=== PATIENT | female | born 1960 | race Caucasian/White ===

== ENCOUNTER 2016-06-08 08:11 | Inpatient (IN) | payer BC ==
[2016-06-08] MEDS ORDERED: Albuterol/Ipratropium NEB.SOL* Albuterol 2.5 MG/Ipratropium 0.5 MG 3 ML INH ONE (08:32)
[2016-06-08 09:00] LABS: Hematocrit 54 % (35-47); Hemoglobin 16.7 g/dl (12.0-16.0); Mean Corpuscular HGB Conc 31 g/dl (31-36); Mean Corpuscular Hemoglobin 29 pg (27-31); Mean Corpuscular Volume 92 fL (80-97); Mean Platelet Volume 8 um3 (7.4-10.4); Red Blood Count 5.81 10^6/ul (4.0-5.4); Red Cell Distribution Width 17 % (10.5-15); White Blood Count 6.8 10^3/ul (3.5-10.8)
[2016-06-08 09:04] LABS: Comments Flag Yes
[2016-06-08 09:18] LABS: ALT 16 U/L (7-52); Albumin 3.4 g/dL (3.2-5.2); Alkaline Phosphatase 50 U/L (34-104); BUN/Creatinine Ratio 19.4 (8-20); Blood Urea Nitrogen 20 mg/dL (6-24); CO2 Carbon Dioxide 34 mmol/L (22-32); Calcium 9.4 mg/dL (8.6-10.3); Chloride 98 mmol/L (101-111); EGFR African American 71.5 (>60); EGFR Non-African American 55.6 (>60); Globulin 2.8 g/dL (2-4); Glucose 120 mg/dL (70-100); Sodium 139 mmol/L (133-145); Total Protein 6.2 g/dL (6.4-8.9)
[2016-06-08 09:30] LABS: Troponin I 0.11 ng/mL (<0.04)
[2016-06-08] MEDS ORDERED: Furosemide IV* 10 MG/ML 10 ML VIAL (100 MG) IV ONE (09:39)
[2016-06-08] MEDS ORDERED: Aspirin Low Dose CHEW TAB* 81 MG PO ONE (09:40)
--- NOTE | 2016-06-08 10:09 | RAD ---
INDICATION: Short of breath. Wheezing COMPARISON: October 26, 2013 TECHNIQUE: PA and lateral dual-energy views were obtained. FINDINGS: Bones/Soft Tissues: There are no acute bony findings. Cardiomediastinal: The cardiac silhouette is enlarged with an interval increase in size. There may be mild interstitial congestion. A pericardial effusion is not excluded. Lungs: No focal consolidative changes. Pleura: Tiny bilateral pleural effusions. Other: None IMPRESSION: INTERVAL INCREASE IN SIZE OF THE CARDIAC SILHOUETTE. SUSPECT MILD INTERSTITIAL CONGESTION. CONSIDER ECHOCARDIOGRAPHY TO EVALUATE FOR A PERICARDIAL EFFUSION IF THIS IS A DIFFERENTIAL CONSIDERATION .
[2016-06-08] MEDS ORDERED: Heparin DRIP 25,000 UNITS(*) 25,000 UNITS/500 ML BAG IVPB SCH ×2 (12:30→14:00)
--- NOTE | 2016-06-08 12:39 | ECHO ---
Patient: MARY GLOVER [facility] Rec#: [id number] : 1960 Date: 06/08/2016 Age: 55y Height: 167 cm / 65.7 in Weight: 102 kg / 224.8 lbs Sex: F BSA: 2.1 Room#: [id number] Admit Date#: 06/08/2016 Type: Outpatient Referring: Sukhdev Alston MD Reading: Eren Ring DO Reading: Eren Ring DO Heavy Equipment Mechanic: Mau Francis RDCS Transthoracic Echocardiogram Indication: CHF,SOB BP: 115/53 HR: 60 Rhythm: NSR Findings History: CHF,SOB Technical Comments: The study quality is fair. Completed 1210 The study is technically limited due to patient body habitus. Left Ventricle: The left ventricular chamber size is normal. Mild concentric left ventricular hypertrophy is observed. Global left ventricular wall motion and contractility are within normal limits. There is normal left ventricular systolic function. The estimated ejection fraction is 50-55%. There is septal flattening of the interventricular septum consistent with right ventricular volume or pressure overload. The assessment of diastolic function is non-diagnostic. Abnormal left ventricular diastolic filling is observed, consistent with impaired relaxation. Left Atrium: The left atrial chamber size is normal. Right Ventricle: The right ventricle is moderate to severely dilated. The right ventricular global systolic function is moderately reduced. Right Atrium: The right atrium is moderately dilated. Aortic Valve: The aortic valve is trileaflet. There is no evidence of aortic regurgitation. There is no evidence of aortic stenosis. Mitral Valve: The mitral valve leaflets appear normal. There is no evidence of mitral regurgitation. There is no evidence of mitral stenosis. Tricuspid Valve: There is mild tricuspid regurgitation. There is evidence of moderate pulmonary hypertension. Pulmonic Valve: The pulmonic valve appears normal. There is a trace pulmonic regurgitation. There is no pulmonic stenosis. Pericardium: There is a small pericardial effusion. Aorta: There is no dilatation of the ascending aorta. There is no dilatation of the aortic arch. There is no dilation of the aortic root. Pulmonary Artery: The main pulmonary artery is not well visualized. Venous: The inferior vena cava is not visualized. Conclusions The left ventricular chamber size is normal. Mild concentric left ventricular hypertrophy is observed. The estimated ejection fraction is 50-55%. Left atrium is normal sized. There is septal flattening of the interventricular septum throughout diastole and systole consistent with RV pressure overload. The right ventricle is moderate to severely dilated. The right ventricular global systolic function is moderately reduced. The right atrium is moderately dilated. No obvious interatrial shunt with color flow doppler There is evidence of moderate pulmonary hypertension. There is a small posterior located pericardial effusion. The main pulmonary artery is not well visualized. The inferior vena cava is not visualized. No prior studies available for comparison at time of interpretation. Results discussed with Dr. Sukhdev Alston at time of interpretation Measurements Name Value Normal Range RVIDd (AP) 2D 2.9 cm (0.9 - 2.6) RVDdMajor (2D) 4.6 cm (2.2 - 4.4) RAd ISD 4CH 6.1 cm (3.4 - 4.9) RA (A4C)W 6.4 cm (2.9 - 4.6) IVSd (2D) 1.4 cm (0.6 - 1) LVPWd (2D) 0.7 cm (0.6 - 1) LVIDd (2D) 5.7 cm (3.6 - 5.4) LVIDs (2D) 4 cm - LV FS (2D) 30 % (25 - 45) Aortic Annulus 2 cm (1.4 - 2.6) Ao root diameter (2D) 2.8 cm (2.1 - 3.5) Ascending Ao 2.5 cm (2.1 - 3.4) Aortic arch 2.5 cm (1.8 - 3.4) LA dimension (AP) 2D 3.7 cm (2.3 - 3.8) LAd ISD 4CH 5.1 cm (2.9 - 5.3) Name Value Normal Range LA ESV SP 4CH (A/L) 72 ml - LA ESV SP 4CH (MOD) 61 ml - Name Value Normal Range MV E-wave Vmax 0.45 m/sec - MV deceleration time 122 msec - MV A-wave Vmax 0.6 m/sec - MV E:A ratio 0.69 ratio - LV septal e' Vmax 0.07 m/sec - LV lateral e' Vmax 0.14 m/sec - LV E:e' septal ratio 6.4 ratio - LV E:e' lateral ratio 3.2 ratio - Name Value Normal Range LVOT diameter 2.2 cm - LVOT Vmax 0.9 m/sec - Name Value Normal Range TR Vmax 3.5 m/sec - TR peak gradient 50 mmHg - RVSP 50 mmHg - Name Value Normal Range PV Vmax 0.75 m/sec -
--- NOTE | 2016-06-08 12:53 | ED ---
Jordon Wynne Matthew, scribed for Geoff Ivy MD on 06/08/16 at 0830 . Shortness of Breath - HPI Summary HPI Summary: A 55 y/o female presents to the ED with SOB since a couple of weeks ago and worse today. Associated symptoms include productive cough - yellow phlegm, chills, pedal edema - since a week ago, distended abdomen, and wheezing. The patient denies body aches, fever, and recent travel. She states that she has been ill for the past week. The SOB is worse with exertion. She is a current smoker and has taken two albuterol treatments at home with out relief. She has a Hx of COPD. NO Hx of CAD, Diabetes, HTN, Asthma, or CHF. Upon arrival she was sating at 77% on RA. - History of Current Complaint Chief Complaint: EDRespiratoryDistress Time Seen by Provider: 06/08/16 08:21 Hx Obtained From: Patient Onset/Duration: Gradual Onset, Lasting Weeks, Still Present Timing: Constant Current Severity: Moderate Dyspnea At: Exertion Alleviating Factors: Nothing Associated Signs & Symptoms: Cough (Productive), Wheezing, Chills, Edema - pedal - Allergy/Home Medications Allergies/Adverse Reactions: Allergies Allergy/AdvReac Type Severity Reaction Status Date / Time Theophylline Allergy Swelling Verified 10/10/15 18:45 Of Face,Lips,& Throat Thimerosal Allergy Swelling Verified 10/10/15 18:45 Of Face,Lips,& Throat PMH/Surg Hx/FS Hx/Imm Hx Endocrine/Hematology History: Denies: Hx Diabetes, Hx Thyroid Disease Cardiovascular History: Denies: Hx Hypertension Respiratory History: Reports: Hx Pneumonia, Hx Seasonal Allergies Denies: Hx Asthma, Hx Chronic Obstructive Pulmonary Disease (COPD) GI History: Denies: Hx Ulcer Sensory History: Reports: Hx Cataracts - SX BLT cataracts, Hx Contacts or Glasses Opthamlomology History: Reports: Hx Cataracts - SX BLT cataracts, Hx Contacts or Glasses - Surgical History Surgery Procedure, Year, and Place: bilat cataract - lens implant Infectious Disease History: No Infectious Disease History: Denies: Hx Clostridium Difficile, Hx Hepatitis, Hx Human Immunodeficiency Virus (HIV), Hx of Known/Suspected MRSA, Hx Shingles, Hx Tuberculosis, Traveled Outside the [place] in Last 30 Days - Family History Family History: FHx of CHF - grandmother maternal - Social History Alcohol Use: Occasionally Alcohol Amount: 12 Substance Use Type: Reports: None Smoking Status (MU): Current Every Day Smoker Type: Cigarettes Amount Used/How Often: 4 per day Length of Time of Smoking/Using Tobacco: 30 years Have You Smoked in the Last Year: Yes Review of Systems Positive: Chills. Negative: Fever Eyes: Negative ENT: Negative Cardiovascular: Negative Respiratory: Other - Wheezingn Positive: Shortness Of Breath, Cough - productive w/ yellow phlegm Gastrointestinal: Negative Genitourinary: Negative Positive: Edema - pedal . Negative: Myalgia Skin: Negative Neurological: Negative Psychological: Normal All Other Systems Reviewed And Are Negative: Yes Physical Exam - Summary Physical Exam Summary: The patient is in mild respiratory distress. The skin had decreased turgor. HEENT: The head is normocephalic and atraumatic. The pupils are equal and reactive. The conjunctivae are clear and without drainage. Nares are patent and without drainage. Mouth reveals moist mucous membranes and the throat is without erythema and exudate. The external ears are intact. The ear canals are patent and without drainage. The tympanic membranes are intact. Neck is supple with full range of motion and non-tender. There are no carotid bruits. There is no neck vein distension. Respiratory: Chest is non-tender. Diffuse wheezing and rhonchi throughout. Cardiovascular: Heart is regular rhythm and tachycardic. There is no murmur or rub auscultated. Pulses are symmetrical and equal. Abdomen: The abdomen is soft, obese, and non-tender. There are normal bowel sounds heard in all four quadrants and there is no organomegaly palpated. No CVA tenderness elicited. The patient has questionable fluid shit. Musculoskeletal: There is no back pain noted. Extremities are non-tender with full range of motion. There is 3 second capillary refill. There is no calf tenderness elicited.The patient has pitting edema of the LE bilaterally that extends into the abdomen. Neurological: Patient is alert and oriented to person, place and time. The patient has symmetrical motor strength in all four extremities. Cranial nerves are grossly intact. Deep tendon reflexes are symmetrical and equal in all four extremities. Psychiatric: The patient has an appropriate affect and does not exhibit any anxiety or depression. Triage Information Reviewed: Yes Vital Signs On Initial Exam: Initial Vitals Temp Pulse Resp BP Pulse Ox 98.1 F 127 26 135/89 75 06/08/16 08:14 06/08/16 08:14 06/08/16 08:14 06/08/16 08:14 06/08/16 08:14 Vital Signs Reviewed: Yes Diagnostics - Vital Signs Vital Signs Temp Pulse Resp BP Pulse Ox 06/08/16 08:14 98.1 F 127 26 135/89 75 - Laboratory Lab Results: Lab Results 06/08/16 06/08/16 06/08/16 Range/Units 08:45 08:45 08:45 WBC 6.8 (3.5-10.8) 10^3/ul RBC 5.81 H (4.0-5.4) 10^6/ul Hgb 16.7 H (12.0-16.0) g/dl Hct 54 H (35-47) % MCV 92 (80-97) fL MCH 29 (27-31) pg MCHC 31 (31-36) g/dl RDW 17 H (10.5-15) % Plt Count 224 (150-450) 10^3/ul MPV 8 (7.4-10.4) um3 Neut % (Auto) 81.5 (38-83) % Lymph % (Auto) 6.1 L (25-47) % [place] % (Auto) 10.8 H (1-9) % Eos % (Auto) 0.8 (0-6) % Baso % (Auto) 0.8 (0-2) % Absolute Neuts (auto) 5.5 (1.5-7.7) 10^3/ul Absolute Lymphs (auto) 0.4 L (1.0-4.8) 10^3/ul Absolute Monos (auto) 0.7 (0-0.8) 10^3/ul Absolute Eos (auto) 0.1 (0-0.6) 10^3/ul Absolute Basos (auto) 0.1 (0-0.2) 10^3/ul Absolute Nucleated RBC 0.02 10^3/ul Nucleated RBC % 0.3 INR (Anticoag Therapy) 1.12 H (0.89-1.11) APTT Pending Sodium 139 (133-145) mmol/L Potassium TNP Chloride 98 L (101-111) mmol/L Carbon Dioxide 34 H (22-32) mmol/L Anion Gap TNP BUN 20 (6-24) mg/dL Creatinine 1.03 H (0.51-0.95) mg/dL Est GFR ( Amer) 71.5 (>60) Est GFR (Non-Af Amer) 55.6 (>60) BUN/Creatinine Ratio 19.4 (8-20) Glucose 120 H (70-100) mg/dL Hemoglobin A1c (Less than 6.0) % Lactic Acid (0.5-2.0) mmol/L Calcium 9.4 (8.6-10.3) mg/dL Total Bilirubin 1.40 H (0.2-1.0) mg/dL AST TNP ALT 16 (7-52) U/L Alkaline Phosphatase 50 (34-104) U/L Troponin I 0.11 H* (<0.04) ng/mL B-Natriuretic Peptide ( - 100) pg/mL Total Protein 6.2 L (6.4-8.9) g/dL Albumin 3.4 (3.2-5.2) g/dL Globulin 2.8 (2-4) g/dL Albumin/Globulin Ratio 1.2 (1-3) TSH Pending 06/08/16 06/08/16 06/08/16 Range/Units 08:45 08:45 08:45 WBC (3.5-10.8) 10^3/ul RBC (4.0-5.4) 10^6/ul Hgb (12.0-16.0) g/dl Hct (35-47) % MCV (80-97) fL MCH (27-31) pg MCHC (31-36) g/dl RDW (10.5-15) % Plt Count (150-450) 10^3/ul MPV (7.4-10.4) um3 Neut % (Auto) (38-83) % Lymph % (Auto) (25-47) % [place] % (Auto) (1-9) % Eos % (Auto) (0-6) % Baso % (Auto) (0-2) % Absolute Neuts (auto) (1.5-7.7) 10^3/ul Absolute Lymphs (auto) (1.0-4.8) 10^3/ul Absolute Monos (auto) (0-0.8) 10^3/ul Absolute Eos (auto) (0-0.6) 10^3/ul Absolute Basos (auto) (0-0.2) 10^3/ul Absolute Nucleated RBC 10^3/ul Nucleated RBC % INR (Anticoag Therapy) (0.89-1.11) APTT Sodium (133-145) mmol/L Potassium Chloride (101-111) mmol/L Carbon Dioxide (22-32) mmol/L Anion Gap BUN (6-24) mg/dL Creatinine (0.51-0.95) mg/dL Est GFR ( Amer) (>60) Est GFR (Non-Af Amer) (>60) BUN/Creatinine Ratio (8-20) Glucose (70-100) mg/dL Hemoglobin A1c 7.3 H (Less than 6.0) % Lactic Acid 2.0 (0.5-2.0) mmol/L Calcium (8.6-10.3) mg/dL Total Bilirubin (0.2-1.0) mg/dL AST ALT (7-52) U/L Alkaline Phosphatase (34-104) U/L Troponin I (<0.04) ng/mL B-Natriuretic Peptide 885 H ( - 100) pg/mL Total Protein (6.4-8.9) g/dL Albumin (3.2-5.2) g/dL Globulin (2-4) g/dL Albumin/Globulin Ratio (1-3) TSH Result Diagrams: 06/08/16 08:45 06/08/16 12:19 Lab Statement: Any lab studies that have been ordered have been reviewed, and results considered in the medical decision making process. - Radiology CXR Xray Interpretation: Positive (See Comments) - IMPRESSION: INTERVAL INCREASE IN SIZE OF THE CARDIAC SILHOUETTE. SUSPECT MILD INTERSTITIAL CONGESTION. CONSIDER ECHOCARDIOGRAPHY TO EVALUATE FOR A PERICARDIAL EFFUSION IF THIS IS A DIFFERENTIAL CONSIDERATION . Radiology Interpretation Completed By: Radiologist - EKG 08:18 Cardiac Rate: Tachycardia - 108 EKG Rhythm: Sinus Tachycardia EKG Interpretation: Normal [place]; Poor R Wave Progression; Old lateral wall OH; No STEMI Course/Dx - Course Assessment/Plan: The patient had NO relief with DuoNeb treatments. Reviewed of CXR shows cardiomegaly, which is new since 2013. BNP was elevated and troponin was elevated to 0.11. Dr. Alston was consulted and will evaluate the patient for admission. - Diagnoses Differential Diagnosis/HQI/PQRI: Positive: CHF, OH, Pulmonary Edema, Other - cardiomyopathy, pericrdial effusion, viral myocarditis Provider Diagnoses: Acute dyspnea, New onset of congestive heart failure - Physician Notifications Discussed Care of Patient With: Dr. Alston (Hospitalist) at 09:54 -- Notified of patient's history and will admit the patient into his services. Discharge - Discharge Plan Condition: Stable Disposition: ADMITTED TO Health system documentation as recorded by the Jordon doyle Matthew accurately reflects the service I personally performed and the decisions made by , Geoff Ivy MD.
[2016-06-08] MEDS ORDERED: Heparin VIAL(*) 5000 UNITS/ML VIAL (FIVE THOUSAND) IV SCH ×2 (13:00→14:00)
[2016-06-08 13:02] LABS: Troponin I 0.11 ng/mL (<0.04)
[2016-06-08 13:30] LABS: TSH (Thyroid Stimulating Horm) 3.23 mcIU/mL (0.34-5.60)
[2016-06-08] MEDS ORDERED: Iodixanol* (CONTRAST) 320 MG/ML 100 ML SDV IV ONE (13:49)
[2016-06-08] MEDS ORDERED: Heparin VIAL(*) 5000 UNITS/ML VIAL (FIVE THOUSAND) SUBCUT SCH (14:00)
--- NOTE | 2016-06-08 14:18 | HP ---
ADMISSION HISTORY AND PHYSICAL: DATE OF ADMISSION: 06/08/16 PRIMARY CARE PROVIDER: Dr. Borrero, sees him frequently. HEALTHCARE PROXY: Her sister, Bharati Bullock. CODE STATUS: Full. SOURCE OF INFORMATION: History obtained from interview with the patient and review of past medical records. RELIABILITY: Fair to poor. CHIEF COMPLAINT: Lower extremity swelling and cough. HISTORY OF PRESENT ILLNESS: This is a 55-year-old female with past medical history of pneumonia in 2008 and again sepsis with suspected pneumonia in 2013, fairly low contact with the healthcare system, last followed Dr. Jona Borrero after her discharge in 2013, who notes a decline starting in February, fell and bruised her left leg, had been improving. Her exercise tolerance up until the beginning of the year and around April was essentially unlimited but noted over the last several weeks, it felt like her "insides have fallen" with notable increased lower extremity edema bilaterally and abdominal bloating. She thinks approximately 2 to 3 weeks ago, she had flu-like symptoms, decreased energy with fevers and myalgias, that had resolved. However, possibly preceding right around the same time, started increasing lower extremity edema and dyspnea on exertion. Her exercise tolerance has now decreased to approximately 50 feet. She denies any chest pain or discomfort at any time, including with exertion. She denies PND or orthopnea. She has had no syncope or near loss of consciousness and no palpitations. She denies any symptoms, does note increased episodes of watery stools with explosive gas over the last month. In the emergency room, she was given 80 mg of Lasix, albuterol nebulizer , and aspirin. Hospitalist service was consulted for admission. PAST MEDICAL HISTORY: Largely unknown. Past medical history includes pneumonia in 2008 and sepsis in 2013 suspected secondary to pneumonia, bilateral iritis, suspected COPD versus bronchospasm in hospital stay in 2013. Tobacco abuse, obesity. MEDICATIONS: 1. Albuterol nebulizer as needed at home. 2. Paroxetine 20 mg daily. ALLERGIES: THEOPHYLLINE and THIMEROSAL. FAMILY HISTORY: Mother with colon cancer. No CAD or lung disorders in mother or father. SOCIAL HISTORY: Drinks 1 to 2 beers per day. 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 REVIEW OF SYSTEMS: As per HPI, otherwise all other systems negative. PHYSICAL EXAMINATION GENERAL: An obese woman sitting up in bed, interactive, pleasant, talks in full sentences, in no apparent distress. VITAL SIGNS: In the emergency room, blood pressure 135/89, heart rate is 105 to 127 beats per minute. O2 saturation nadired at 75, increased to 98% on 2 L oxygen. T-max is 98.1. HEENT: Oropharynx is clear. Moist mucous membranes. Sclerae are anicteric. NECK: She has elevated JVD at the angle of her jaw. No palpable cervical or supraclavicular lymphadenopathy. LUNGS: Her lungs had diffuse rhonchi throughout in all lung siegel. HEART: She is tachycardic. Heart rate with a regular rhythm. No murmurs. ABDOMEN: Soft, nondistended, with overlying edema. Positive bowel sounds. EXTREMITIES: Warm and well perfused except for the fingertips, which are cool. She has 3+ lower extremity pitting edema to above the knees. SKIN: Her skin has general erythema in her lower extremities to her knees as well as her lower abdomen without evidence of cellulitic change. She has some facial edema in a butterfly distribution. NEUROLOGIC: She is alert and oriented x3. She had no apparent anxiety, agitation, or depression. LABORATORY DATA: Labs reviewed. Troponin I is 0.11, BNP 885, BUN 20, creatinine 1.03, bicarb 34, INR is 1.12. White blood cell count is 6.4, hemoglobin 16.7, and platelets 224. Data reviewed. Chest x-ray, formal impression: Interval increase in size of the cardiac silhouette compared to 2004, suspect mild interstitial congestion. Consider echocardiography, evaluate for pericardial effusion if it is in the differential. EKG: Sinus tachycardia, ventricular rate of 108, right axis deviation, low voltage throughout, Q waves in V2 and V3, QRS greater than 0.08, less than 0.12. ASSESSMENT AND PLAN: This is a 55-year-old female, not well followed in the medical community, presenting with increasing shortness of breath, cough, and lower extremity edema. Enlarged cardiac silhouette on chest x-ray associated with low-voltage EKG and new evidence of heart failure symptoms. Check echocardiogram now to rule out pericardial effusion and/or decreased cardiac function. In addition to pericardial effusion, differential includes silent myocardial infarction, alcoholic dilated cardiomyopathy, as well as mild pericarditis in the setting of recent upper respiratory infection symptoms around the time she developed lower extremity edema. Elevated troponin. Trend, next one in 3 hours. We will not start heparin at this time unless increasing and new evidence of effusion on echocardiogram. Continue aspirin, low dose tomorrow, received high dose in the emergency room. The patient is chest pain free. Check a hemoglobin A1c, add on total cholesterol panel fasting in the morning. Shortness of breath and cough. Etiology likely related to one of the above, including heart failure exacerbation in the setting of silent myocardial infarction or decreased EF, pericardial effusion or acute coronary syndrome. Received Lasix 80 mg now. We will hold additional Lasix at this time. Repeat BMP in the morning. Continue albuterol nebs, add Dulera for suspicion of underlying chronic obstructive pulmonary disease. Strict I's and O's and daily weights, heart healthy diet. Depression. Continue paroxetine. Code status is full. [id number]/[facility] #: [id number] MTDD
--- NOTE | 2016-06-08 15:16 | RAD ---
HISTORY: New right ventricular failure COMPARISONS: January 04, 2009 TECHNIQUE: Multiple contiguous axial CT scans of the chest were obtained after the administration of nonionic intravenous contrast, timed to the pulmonary arterial phase of contrast enhancement.. Coronal and sagittal multiplanar reformations are also submitted for review. FINDINGS: NECK AND THYROID: The lower neck and thyroid are unremarkable. CHEST WALL: There is no lower cervical, axillary, or supraclavicular lymphadenopathy by size criteria. HEART AND PERICARDIUM: There is a moderate pericardial effusion AORTA AND PULMONARY VASCULATURE: The pulmonary artery is enlarged compared to the aorta. There is no pulmonary arterial filling defect to suggest pulmonary embolism MEDIASTINUM: There is no mediastinal lymphadenopathy by size criteria. DARRICK: There is no hilar lymphadenopathy by size criteria. AIRWAY AND ESOPHAGUS: The airway is unremarkable, without endobronchial filling defect. The esophagus is grossly normal. LUNG PARENCHYMA: The lungs are clear. PLEURA: No pleural abnormalities are noted. UPPER ABDOMEN: There is a moderate amount of ascites BONES AND SOFT TISSUES: Degenerative changes noted of the spine. There is extensive subcutaneous edema OTHER: None. IMPRESSION: 1. MODERATE PERICARDIAL EFFUSION. 2. ENLARGEMENT OF THE PULMONARY ARTERY SUGGESTIVE OF PULMONARY ARTERIAL HYPERTENSION. 3. NO PULMONARY ARTERIAL FILLING DEFECT TO SUGGEST PULMONARY EMBOLISM. 4. ASCITES.
--- NOTE | 2016-06-08 18:41 | PN ---
Progress Note - Progress Note Note: Admission addendum: TTE indicated right sided heart failure with minimal pericardial effusion. Patient empirically treated for suspect PE prior to acquisition of CTA. CTA did not indicate PE so heparin was discontinued. Discuss briefly with cardiology who was not formally consulted. Repeat TTE with bubble may be of some use. Possible underlying COPD and/or COPD contributing.
[2016-06-08] MEDS: Mometasone/Formoter 100/5 MDI INH SCH (20:04)
[2016-06-08] MEDS: Heparin VIAL(*) 5000 UNITS/ML VIAL (FIVE THOUSAND) SUBCUT SCH (22:06)
[2016-06-09] MEDS: Heparin VIAL(*) 5000 UNITS/ML VIAL (FIVE THOUSAND) SUBCUT SCH ×3 (05:29→21:11)
[2016-06-09 05:34] LABS: Hematocrit 49 % (35-47); Hemoglobin 15.1 g/dl (12.0-16.0); Mean Corpuscular HGB Conc 31 g/dl (31-36); Mean Corpuscular Hemoglobin 29 pg (27-31); Mean Corpuscular Volume 92 fL (80-97); Mean Platelet Volume 8 um3 (7.4-10.4); Red Blood Count 5.26 10^6/ul (4.0-5.4); Red Cell Distribution Width 15 % (10.5-15); White Blood Count 6.1 10^3/ul (3.5-10.8)
[2016-06-09 05:50] LABS: Comments Flag Yes
[2016-06-09 05:54] LABS: BUN/Creatinine Ratio 20.5 (8-20); Calcium 8.6 mg/dL (8.6-10.3); EGFR African American 85.8 (>60); EGFR Non-African American 66.7 (>60); Potassium 4.2 mmol/L (3.5-5.0)
[2016-06-09] MEDS: Aspirin Low Dose CHEW TAB* 81 MG PO SCH (08:33)
[2016-06-09] MEDS: PARoxetine HCL TAB* 20 MG PO SCH (08:33)
[2016-06-09] MEDS ORDERED: Pneumococcal Vac Polyvalent* 0.5 ML VIAL IM ONE (09:00)
[2016-06-09] MEDS: Mometasone/Formoter 100/5 MDI INH SCH ×2 (09:19→21:13)
[2016-06-09] MEDS ORDERED: Dextrose 50% Syringe 50 ML* 25 GM/50 ML SYRINGE IV PUSH PRN (09:45)
--- NOTE | 2016-06-09 10:06 | PN ---
Subjective Date of Service: 06/09/16 Interval History: +cough, non productive Feels LE swelling and SOB have improved. Denies any chest discomfort. Walking to bathroom. Inc urine output with lasix. tele reviewed - no events Off oxygen after walking to bathroom on my arrival - O2sat 74%, asymptomatic Objective Active Medications: Acetaminophen (Tylenol Tab*) 650 mg PO Q4H PRN PRN Reason: FEVER/PAIN Albuterol/Ipratropium (Duoneb Neb.Ingrid*) 1 neb INH Q6H PRN PRN Reason: SOB/WHEEZING Aspirin (Aspirin Low Dose Tab*) 81 mg PO DAILY [facility] Last Admin: 06/09/16 08:33 Dose: 81 mg Dextrose (D50w Syringe 50 Ml*) 12.5 gm IV PUSH .FOR FS < 60 - SS PRN PRN Reason: FS < 60 Furosemide (Lasix Iv*) 40 mg IV DAILY [facility] Heparin Sodium (Porcine) (Heparin Vial(*)) 5,000 units SUBCUT Q8HR [facility] Last Admin: 06/09/16 05:29 Dose: 5,000 units Insulin Human Lispro (Humalog*) 0 units SUBCUT ACHS [facility] PRN Reason: Protocol Metformin HCl (Glucophage*) 500 mg PO 0800,1700 [facility] Mometasone Furoate/Formoterol Fumar (Dulera 100/5 Mdi*) 2 puff INH BID [facility] Last Admin: 06/09/16 09:19 Dose: 2 puff Paroxetine HCl (Paxil Tab*) 20 mg PO DAILY [facility] Last Admin: 06/09/16 08:33 Dose: 20 mg Vital Signs 06/08/16 06/08/16 06/08/16 12:59 16:19 16:47 Temperature 98.2 F 98.4 F Pulse Rate 89 104 Respiratory 26 18 18 Rate Blood Pressure 113/78 105/75 (mmHg) O2 Sat by Pulse 97 97 Oximetry 06/08/16 06/08/16 06/08/16 19:35 20:08 20:34 Temperature 98.4 F Pulse Rate 86 87 Respiratory 18 18 Rate Blood Pressure 113/66 (mmHg) O2 Sat by Pulse 96 96 Oximetry 06/08/16 06/09/16 06/09/16 23:25 01:15 03:24 Temperature 98.5 F 98.6 F Pulse Rate 86 86 84 Respiratory 20 20 20 Rate Blood Pressure 114/88 125/85 (mmHg) O2 Sat by Pulse 91 92 93 Oximetry 06/09/16 09:22 Temperature Pulse Rate 86 Respiratory 14 Rate Blood Pressure (mmHg) O2 Sat by Pulse 94 Oximetry Oxygen Devices in Use Now: Nasal Cannula - 92% with 2L and 74% on RA Eyes: No Scleral Icterus, PERRLA Ears/Nose/Mouth/Throat: NL Teeth, Lips, Gums, Clear Oropharnyx, Mucous Membranes Moist Neck: NL Appearance and Movements; NL JVP, Trachea Midline Respiratory: Symmetrical Chest Expansion and Respiratory Effort, - - decreasd throughout, +rales to apex Cardiovascular: RRR Abdominal: NL Sounds; No Tenderness; No Distention, No Hepatosplenomegaly, - - + anasarca Extremities: - - 2_ edema to above knees Neurological: Alert and Oriented x 3 Result Diagrams: 06/09/16 04:49 06/09/16 04:49 Additional Lab and Data: Lab Results 06/08/16 06/08/16 06/08/16 Range/Units 08:45 08:45 08:45 WBC 6.8 (3.5-10.8) 10^3/ul RBC 5.81 H (4.0-5.4) 10^6/ul Hgb 16.7 H (12.0-16.0) g/dl Hct 54 H (35-47) % MCV 92 (80-97) fL MCH 29 (27-31) pg MCHC 31 (31-36) g/dl RDW 17 H (10.5-15) % Plt Count 224 (150-450) 10^3/ul MPV 8 (7.4-10.4) um3 Neut % (Auto) 81.5 (38-83) % Lymph % (Auto) 6.1 L (25-47) % [place] % (Auto) 10.8 H (1-9) % Eos % (Auto) 0.8 (0-6) % Baso % (Auto) 0.8 (0-2) % Absolute Neuts (auto) 5.5 (1.5-7.7) 10^3/ul Absolute Lymphs (auto) 0.4 L (1.0-4.8) 10^3/ul Absolute Monos (auto) 0.7 (0-0.8) 10^3/ul Absolute Eos (auto) 0.1 (0-0.6) 10^3/ul Absolute Basos (auto) 0.1 (0-0.2) 10^3/ul Absolute Nucleated RBC 0.02 10^3/ul Nucleated RBC % 0.3 INR (Anticoag Therapy) 1.12 H (0.89-1.11) APTT Pending Sodium 139 (133-145) mmol/L Potassium TNP Chloride 98 L (101-111) mmol/L Carbon Dioxide 34 H (22-32) mmol/L Anion Gap TNP BUN 20 (6-24) mg/dL Creatinine 1.03 H (0.51-0.95) mg/dL Est GFR ( Amer) 71.5 (>60) Est GFR (Non-Af Amer) 55.6 (>60) BUN/Creatinine Ratio 19.4 (8-20) Glucose 120 H (70-100) mg/dL Hemoglobin A1c (Less than 6.0) % Lactic Acid (0.5-2.0) mmol/L Calcium 9.4 (8.6-10.3) mg/dL Total Bilirubin 1.40 H (0.2-1.0) mg/dL AST TNP ALT 16 (7-52) U/L Alkaline Phosphatase 50 (34-104) U/L Troponin I 0.11 H* (<0.04) ng/mL B-Natriuretic Peptide ( - 100) pg/mL Total Protein 6.2 L (6.4-8.9) g/dL Albumin 3.4 (3.2-5.2) g/dL Globulin 2.8 (2-4) g/dL Albumin/Globulin Ratio 1.2 (1-3) TSH Pending 06/08/16 06/08/16 06/08/16 Range/Units 08:45 08:45 08:45 WBC (3.5-10.8) 10^3/ul RBC (4.0-5.4) 10^6/ul Hgb (12.0-16.0) g/dl Hct (35-47) % MCV (80-97) fL MCH (27-31) pg MCHC (31-36) g/dl RDW (10.5-15) % Plt Count (150-450) 10^3/ul MPV (7.4-10.4) um3 Neut % (Auto) (38-83) % Lymph % (Auto) (25-47) % [place] % (Auto) (1-9) % Eos % (Auto) (0-6) % Baso % (Auto) (0-2) % Absolute Neuts (auto) (1.5-7.7) 10^3/ul Absolute Lymphs (auto) (1.0-4.8) 10^3/ul Absolute Monos (auto) (0-0.8) 10^3/ul Absolute Eos (auto) (0-0.6) 10^3/ul Absolute Basos (auto) (0-0.2) 10^3/ul Absolute Nucleated RBC 10^3/ul Nucleated RBC % INR (Anticoag Therapy) (0.89-1.11) APTT Sodium (133-145) mmol/L Potassium Chloride (101-111) mmol/L Carbon Dioxide (22-32) mmol/L Anion Gap BUN (6-24) mg/dL Creatinine (0.51-0.95) mg/dL Est GFR ( Amer) (>60) Est GFR (Non-Af Amer) (>60) BUN/Creatinine Ratio (8-20) Glucose (70-100) mg/dL Hemoglobin A1c 7.3 H (Less than 6.0) % Lactic Acid 2.0 (0.5-2.0) mmol/L Calcium (8.6-10.3) mg/dL Total Bilirubin (0.2-1.0) mg/dL AST ALT (7-52) U/L Alkaline Phosphatase (34-104) U/L Troponin I (<0.04) ng/mL B-Natriuretic Peptide 885 H ( - 100) pg/mL Total Protein (6.4-8.9) g/dL Albumin (3.2-5.2) g/dL Globulin (2-4) g/dL Albumin/Globulin Ratio (1-3) TSH Assess/Plan/Problems-Billing Assessment: 55 yo F with poor medical care follow up presents with 2 weeks increasing LE edema and SOB found with RV pressure overload - Patient Problems (1) Acute cor pulmonale Comment: Suspect acute cor pulm as etiology of RV failure Asking for formal pulmonology and cardiology consultation IV lasix with strict I/O and daily weights Check room air ABG Check overnight pulse ox Check LE duplex Treat COPD as below (2) Edema Comment: lower extremity in setting of RV failure/cor pulm lasix IV as above (3) Diabetes Comment: new dx. HbA1c 7.3% Start metformin 500BID 2/24 Insulin lispro SS (4) COPD (chronic obstructive pulmonary disease) Comment: New dx - clinical dx. Will need PFTs Started dulera and tiotropium (5) DVT prophylaxis Comment: HSQ
[2016-06-09 10:26] LABS: FIO2 21
[2016-06-09 10:34] LABS: PCO2 Arterial 104 mmHg (35-45)
[2016-06-09] MEDS ORDERED: Spiriva Inhaler DEVICE* 1 EACH DEVICE INH ONE (11:00)
[2016-06-09] MEDS: Furosemide IV* 10 MG/ML VIAL (40 MG) IV SCH (11:10)
--- NOTE | 2016-06-09 11:43 | CONSULT ---
Subjective Date of Service: 06/09/16 Interval History: Provider: Sukhdev Alston MD/Hospitalist service DATE OF ADMISSION: 06/08/16 PRIMARY CARE PROVIDER: Dr. Borrero, HEALTHCARE PROXY: Her sister, Bharati Bullock. CODE STATUS: Full. CHIEF COMPLAINT: Lower extremity swelling and cough/dyspnea Reason for consult: Abnormal echocardiogram HISTORY OF PRESENT ILLNESS: Anahi Harris is a 55-year-old woman asked to evaluate for an abnormal echocardiogram. At the time of my evaluation patient is responsive and AAOx3 but difficult answering detailed medical questions and this is a change in her prior mentation per nurse and Dr. Alston. History taken primarily from H+P. Patient is a smoker and was admitted with pneumonia in 2008 and 2013. Over last several weeks has had increased edema, abdominal distention, had flu like symptoms several weeks ago that resolved. Has had progressive PATTON. No CP, palpitations or syncope. CTA 06/08/2016 with enlarged PA artery, ascites but no PE. TTE 06/08/2016 with normal LVEF 50-55%, a moderate to severely dilated RV with moderately reduced function, RA moderately dilated, mild TR with moderate estimated PASP with a flat interventricular septum in systole and diastolic consistent with significant RV pressure overload. The left atrium was normal sized. There was a small posterior pericardial effusion. There was no obvious interatrial shunt. PAST MEDICAL HISTORY: pneumonia in 2008 and sepsis in 2013 suspected secondary to pneumonia, bilateral iritis, suspected COPD Tobacco abuse obesity. MEDICATIONS: 1. Albuterol nebulizer as needed at home. 2. Paroxetine 20 mg daily. ALLERGIES: THEOPHYLLINE and THIMEROSAL. FAMILY HISTORY: Mother with colon cancer. No CAD or lung disorders in mother or father. SOCIAL HISTORY: Drinks 1 to 2 beers per day. 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 Medications Active Medications: Acetaminophen (Tylenol Tab*) 650 mg PO Q4H PRN PRN Reason: FEVER/PAIN Albuterol/Ipratropium (Duoneb Neb.Ingrid*) 1 neb INH Q6H PRN PRN Reason: SOB/WHEEZING Aspirin (Aspirin Low Dose Tab*) 81 mg PO DAILY [facility] Last Admin: 06/09/16 08:33 Dose: 81 mg Dextrose (D50w Syringe 50 Ml*) 12.5 gm IV PUSH .FOR FS < 60 - SS PRN PRN Reason: FS < 60 Furosemide (Lasix Iv*) 40 mg IV DAILY [facility] Last Admin: 06/09/16 11:10 Dose: 40 mg Heparin Sodium (Porcine) (Heparin Vial(*)) 5,000 units SUBCUT Q8HR [facility] Last Admin: 06/09/16 05:29 Dose: 5,000 units Insulin Human Lispro (Humalog*) 0 units SUBCUT ACHS [facility] PRN Reason: Protocol Metformin HCl (Glucophage*) 500 mg PO 0800,1700 [facility] Mometasone Furoate/Formoterol Fumar (Dulera 100/5 Mdi*) 2 puff INH BID [facility] Last Admin: 06/09/16 09:19 Dose: 2 puff Paroxetine HCl (Paxil Tab*) 20 mg PO DAILY [facility] Last Admin: 06/09/16 08:33 Dose: 20 mg Tiotropium [place] (Spiriva Cap.Inh*) 1 cap INH DAILY [facility] Home Medications: PARoxetine HCL TAB* [Paxil TAB*] 20 mg PO DAILY 06/08/16 [History Confirmed ] Review of Systems - Measurements Intake and Output: Intake and Output Last 24 Hours 06/07/16 06/08/16 06/09/16 06/10/16 06:59 06:59 06:59 06:59 Intake Total 538 360 Output Total 2200 Balance -1662 360 Weight 245 lb Intake: Heparin 98 Oral 440 360 Output: Urine 2200 Other: # Bowel Movements 0 - Review of Systems Review of Systems Statement: Unable to obtain due to mental status Objective Vital Signs: Temp Pulse Resp BP Pulse Ox 98.0 F 86 14 100/74 94 06/09/16 07:19 06/09/16 09:22 06/09/16 09:22 06/09/16 07:19 06/09/16 09:22 Oxygen Devices in Use Now: Nasal Cannula - 92% with 2L and 74% on RA Appearance: appears slightly confused but oriented x 3 with repeat questioning Ears/Nose/Mouth/Throat: Clear Oropharnyx Neck: - - uncertain jvp Respiratory: Symmetrical Chest Expansion and Respiratory Effort, - - no wheeze Cardiovascular: - - RRR, no significant murmur, 2+ edema Abdominal: - - obese, distended Extremities: No Clubbing, Cyanosis Skin: No Rash or Ulcers Neurological: Alert and Oriented x 3 Laboratory Results: 06/09/16 04:49 06/09/16 04:49 INR (Anticoag Therapy) 1.12 (0.89-1.11) H 06/08/16 08:45 APTT 35.4 seconds (26.0-36.3) 06/08/16 08:45 Total Bilirubin 1.40 mg/dL (0.2-1.0) H 06/08/16 08:45 AST 22 U/L (13-39) 06/08/16 12:19 ALT 16 U/L (7-52) 06/08/16 08:45 Alkaline Phosphatase 50 U/L (34-104) 06/08/16 08:45 B-Natriuretic Peptide 885 pg/mL (-100) H 06/08/16 08:45 Total Protein 6.2 g/dL (6.4-8.9) L 06/08/16 08:45 Albumin 3.4 g/dL (3.2-5.2) 06/08/16 08:45 Globulin 2.8 g/dL (2-4) 06/08/16 08:45 Albumin/Globulin Ratio 1.2 (1-3) 06/08/16 08:45 Cholesterol 103 mg/dL 06/09/16 04:49 TSH 3.23 mcIU/mL (0.34-5.60) 06/08/16 08:45 06/08/16 06/08/16 12:19 16:09 Troponin I 0.11 H* 0.10 H* ABG 06/09/2016: pH 7.24, PCO2 104, P02 44 Assessment/Plan In summary, Anahi Harris is a 55 year old woman who with a history of tobacco use, obesity, possible reactive airway disease presents with mixed hypercapnic/ hypoxemic respiratory failure associated with c02 narcosis and volume overload from RV failure associated with non WHO group II pulmonary HTN. - Continue IV diuretics as tolerated, correction of respiratory status and acid/ base abnormality will significantly help with diuresis - Can stop aspirin - Recommend transfer to ICU and pulmonary and/or critical care consult - Consider evaluation for sleep apnea/obesity hypoventilation syndrome - Respiratory status management per primary service - Will be available for any assistance needed, please call with questions Thank you for allowing me to participate in the cardiovascular care of this patient. Please do not hesitate to contact me with questions or concerns.
[2016-06-09 13:02] LABS: FIO2 40; IPAP 14; Resp Rate 16
[2016-06-09 13:03] LABS: EPAP 5
[2016-06-09 13:15] LABS: PCO2 Arterial 103 mmHg (35-45)
[2016-06-09] MEDS: Insulin LISPRO* 1 UNITS UNIT SUBCUT SCH ×3 (13:23→21:10)
--- NOTE | 2016-06-09 13:24 | RAD ---
HISTORY: Bilateral lower extremity pitting edema COMPARISONS: None relevant TECHNIQUE: Multiple transverse and longitudinal ultrasound images were obtained of the bilateral lower extremities from the level of the common femoral vein inferiorly through to the infrapopliteal veins using grayscale, color Doppler, and spectral Doppler imaging with and without compression and with augmentation. FINDINGS: VEINS: The venous system of the bilateral lower extremities is compressible throughout its course, with normal flow on color Doppler imaging and normal response to augmentation on spectral Doppler imaging. SOFT TISSUES: Unremarkable. OTHER FINDINGS: None. IMPRESSION: NO RIGHT LOWER EXTREMITY DEEP VEIN THROMBOSIS. NO LEFT LOWER EXTREMITY DEEP VEIN THROMBOSIS
--- NOTE | 2016-06-09 16:19 | CONSULT ---
Consult Consult: Pulmonary consult note 06/09/2016. Pt seen and examined at bedside. Consult requested by: Sukhdev Alston MD Reason for consult: Hypoxic and hypercapnic resp failure PRIMARY CARE PROVIDER: Dr. Borrero CHIEF COMPLAINT: Lower extremity swelling, cough, dyspnea HISTORY OF PRESENT ILLNESS: Pt is a 55-year-old obese woman, smoker with h/o PNA who presented to ED for evaluation of LE swelling,, SOB and cough. Pt is currently on BiPAP and history is limited. Information obtained from review of medical records and from patient. Patient was treated for pneumonia in 2008 and 2013. Over last several weeks pt has had increased edema, abdominal distention. She also had flu like symptoms several weeks ago that resolved. Has had progressive PATTON. No CP, palpitations or syncope. Pt was noted to be in hypercapnic and hypoxic resp failure. She was also noted to have abnormal EKG. SHe was transferred to ICU for AMS and hypercapnic resp failure. She is currently on BiPAP and reprots improvement in breathing. She was also noted to have fluid overload. I have personally reviewed CTA from 06/08/2016 - Enlarged PA artery, ascites, no PE, no parenchymal opacities, hyperinflation noted. TTE 06/08/2016 showed normal LVEF 50-55%, a moderate to severely dilated RV with moderately reduced function, RA moderately dilated, mild TR with moderate estimated PASP with a flat interventricular septum in systole and diastolic consistent with significant RV pressure overload. The left atrium was normal sized. There was a small posterior pericardial effusion. There was no obvious interatrial shunt. PAST MEDICAL HISTORY: pneumonia in 2008 and sepsis in 2013 suspected secondary to pneumonia bilateral iritis, suspected COPD Tobacco abuse obesity. MEDICATIONS: 1. Albuterol nebulizer as needed at home. 2. Paroxetine 20 mg daily. ALLERGIES: THEOPHYLLINE and THIMEROSAL. FAMILY HISTORY: Mother with colon cancer. No CAD or lung disorders in mother or father. SOCIAL HISTORY: Drinks 1 to 2 beers per day. 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 ROS: All 14 systems reviewed and as per HPI Active Medications: Acetaminophen (Tylenol Tab*) 650 mg PO Q4H PRN PRN Reason: FEVER/PAIN Albuterol/Ipratropium (Duoneb Neb.Ingrid*) 1 neb INH Q6H PRN PRN Reason: SOB/WHEEZING Aspirin (Aspirin Low Dose Tab*) 81 mg PO DAILY [facility] Last Admin: 06/09/16 08:33 Dose: 81 mg Dextrose (D50w Syringe 50 Ml*) 12.5 gm IV PUSH .FOR FS < 60 - SS PRN PRN Reason: FS < 60 Furosemide (Lasix Iv*) 40 mg IV DAILY [facility] Last Admin: 06/09/16 11:10 Dose: 40 mg Heparin Sodium (Porcine) (Heparin Vial(*)) 5,000 units SUBCUT Q8HR [facility] Last Admin: 06/09/16 05:29 Dose: 5,000 units Insulin Human Lispro (Humalog*) 0 units SUBCUT ACHS [facility] PRN Reason: Protocol Last Admin: 06/09/16 13:23 Dose: Not Given Metformin HCl (Glucophage*) 500 mg PO 0800,1700 [facility] Mometasone Furoate/Formoterol Fumar (Dulera 100/5 Mdi*) 2 puff INH BID [facility] Last Admin: 06/09/16 09:19 Dose: 2 puff Paroxetine HCl (Paxil Tab*) 20 mg PO DAILY [facility] Last Admin: 06/09/16 08:33 Dose: 20 mg Tiotropium [place] (Spiriva Cap.Inh*) 1 cap INH DAILY [facility] Intake and Output Last 24 Hours 06/07/16 06/08/16 06/09/16 06/10/16 06:59 06:59 06:59 06:59 Intake Total 538 360 Output Total 2200 3550 Balance -1662 -3190 Weight 245 lb Intake: Heparin 98 Oral 440 360 Output: Urine 2200 3550 Other: # Bowel Movements 0 Vital Signs: Vital Signs Temp Pulse Resp BP Pulse Ox 98.6 F 87 15 121/72 96 06/09/16 15:59 06/09/16 15:00 06/09/16 15:00 06/09/16 15:00 06/09/16 15:00 Gen: Alert, oriented x 3 HEENT: Clear Oropharnyx, BiPAP mask in place Neck: - No jvp Respiratory: Symmetrical Chest Expansion and Respiratory Effort, no wheeze Cardiovascular: RRR, no significant murmur, 2+ edema Abdominal: obese, distended Extremities: No Clubbing, Cyanosis Skin: No Rash or Ulcers Neurological: Alert and Oriented x 3 Laboratory Results: 06/09/16 04:49 INR (Anticoag Therapy) 1.12 (0.89-1.11) H 06/08/16 08:45 APTT 35.4 seconds (26.0-36.3) 06/08/16 08:45 Total Bilirubin 1.40 mg/dL (0.2-1.0) H 06/08/16 08:45 AST 22 U/L (13-39) 06/08/16 12:19 ALT 16 U/L (7-52) 06/08/16 08:45 Alkaline Phosphatase 50 U/L (34-104) 06/08/16 08:45 B-Natriuretic Peptide 885 pg/mL (-100) H 06/08/16 08:45 Total Protein 6.2 g/dL (6.4-8.9) L 06/08/16 08:45 Albumin 3.4 g/dL (3.2-5.2) 06/08/16 08:45 Globulin 2.8 g/dL (2-4) 06/08/16 08:45 Albumin/Globulin Ratio 1.2 (1-3) 06/08/16 08:45 Cholesterol 103 mg/dL 06/09/16 04:49 TSH 3.23 mcIU/mL (0.34-5.60) 06/08/16 08:45 06/08/16 06/08/16 12:19 16:09 Troponin I 0.11 H* 0.10 H* ABG 06/09/2016: pH 7.24, PCO2 104, P02 44 EKG: sinus tachycardia, PAC's, low limb lead and precordial voltage CT chest as described above in HPI Impression/Recommendations: 55 year old obese female with a history of tobacco use with mixed hypercapnic/ hypoxemic respiratory failure, acute on chronic hypercapnia likely secondary to volume overload from RV failure, underlying COPD, possible EREN and group II pulmonary HTN and cor pulmonale. - Continue IV diuretics as tolerated - Continue BiPAP, will rest 2 hrs during the day and c/w BiPAP at night, rpt ABG after 4 hrs on BiPAP - Continue close monitoring in critical care unit - Evaluation for sleep apnea/obesity hypoventilation syndrome as out pt - Will need PFTs as out pt - c/w bronchodilators - Titrate FiO2 as tolerate Thank you for allowing me to participate in the care of your patient. Will f/u with you.
[2016-06-09] MEDS: metFORMIN* 500 MG TAB PO SCH (18:10)
[2016-06-09] MEDS: Acetaminophen TAB* 325 MG PO PRN (23:35)
[2016-06-10 05:58] LABS: Hematocrit 50 % (35-47); Hemoglobin 15.5 g/dl (12.0-16.0); Mean Corpuscular HGB Conc 31 g/dl (31-36); Mean Corpuscular Hemoglobin 29 pg (27-31); Mean Corpuscular Volume 93 fL (80-97); Mean Platelet Volume 8 um3 (7.4-10.4); Red Blood Count 5.34 10^6/ul (4.0-5.4); Red Cell Distribution Width 16 % (10.5-15); White Blood Count 6.2 10^3/ul (3.5-10.8)
[2016-06-10 06:01] LABS: Comments Flag Yes
[2016-06-10 06:16] LABS: BUN/Creatinine Ratio 19.7 (8-20); Calcium 8.7 mg/dL (8.6-10.3); EGFR African American 101.6 (>60); Potassium 4.5 mmol/L (3.5-5.0)
[2016-06-10] MEDS: Heparin VIAL(*) 5000 UNITS/ML VIAL (FIVE THOUSAND) SUBCUT SCH ×3 (06:35→22:34)
[2016-06-10] MEDS: Insulin LISPRO* 1 UNITS UNIT SUBCUT SCH ×4 (07:34→21:30)
[2016-06-10] MEDS: Mometasone/Formoter 100/5 MDI INH SCH (07:38)
[2016-06-10] MEDS: Tiotropium CAP.INH* CAP.INH/18 MCG INH SCH (07:39)
[2016-06-10] MEDS: Albuterol/Ipratropium NEB.SOL* Albuterol 2.5 MG/Ipratropium 0.5 MG 3 ML INH PRN ×2 (07:43→13:26)
[2016-06-10] MEDS: Furosemide IV* 10 MG/ML VIAL (40 MG) IV SCH (08:57)
[2016-06-10 09:15] LABS: EPAP 5; FIO2 40; IPAP 16; Resp Rate 14
[2016-06-10] MEDS: Aspirin Low Dose CHEW TAB* 81 MG PO SCH (09:22)
[2016-06-10] MEDS: metFORMIN* 500 MG TAB PO SCH ×2 (09:22→17:11)
[2016-06-10 09:26] LABS: PCO2 Arterial 104 mmHg (35-45)
[2016-06-10] MEDS: PARoxetine HCL TAB* 20 MG PO SCH (09:35)
--- NOTE | 2016-06-10 11:51 | PN ---
Subjective Date of Service: 06/10/16 Interval History: Seen this AM +cough, some phlegm. Tolerated CPAP overnight. ABG this AM unchanged Feels swelling in her abdomen is greatly improved. Objective Active Medications: Acetaminophen (Tylenol Tab*) 650 mg PO Q4H PRN PRN Reason: FEVER/PAIN Last Admin: 06/09/16 23:35 Dose: 650 mg Albuterol/Ipratropium (Duoneb Neb.Ingrid*) 1 neb INH Q6H PRN PRN Reason: SOB/WHEEZING Last Admin: 06/10/16 07:43 Dose: 1 neb Dextrose (D50w Syringe 50 Ml*) 12.5 gm IV PUSH .FOR FS < 60 - SS PRN PRN Reason: FS < 60 Heparin Sodium (Porcine) (Heparin Vial(*)) 5,000 units SUBCUT Q8HR [facility] Last Admin: 06/10/16 06:35 Dose: 5,000 units Insulin Human Lispro (Humalog*) 0 units SUBCUT ACHS [facility] PRN Reason: Protocol Last Admin: 06/10/16 07:34 Dose: Not Given Metformin HCl (Glucophage*) 500 mg PO 0800,1700 [facility] Last Admin: 06/10/16 09:22 Dose: 500 mg Methylprednisolone Sodium Succinate (Solu-Medrol*) 60 mg IV Q8H [facility] Mometasone Furoate/Formoterol Fumar (Dulera 100/5 Mdi*) 2 puff INH BID [facility] Last Admin: 06/10/16 07:38 Dose: Not Given Paroxetine HCl (Paxil Tab*) 20 mg PO DAILY [facility] Last Admin: 06/10/16 09:35 Dose: 20 mg Tiotropium [place] (Spiriva Cap.Inh*) 1 cap INH DAILY [facility] Last Admin: 06/10/16 07:39 Dose: Not Given Vital Signs 06/09/16 06/09/16 06/09/16 12:00 12:08 12:15 Temperature Pulse Rate 94 101 Respiratory 5 16 22 Rate Blood Pressure 129/64 133/88 (mmHg) O2 Sat by Pulse 98 99 98 Oximetry 06/09/16 06/09/16 06/09/16 12:30 12:45 13:00 Temperature Pulse Rate 90 85 94 Respiratory 16 16 16 Rate Blood Pressure 127/97 119/83 166/107 (mmHg) O2 Sat by Pulse 97 97 99 Oximetry 06/09/16 06/09/16 06/09/16 13:13 13:14 13:15 Temperature Pulse Rate 88 91 Respiratory 18 20 22 Rate Blood Pressure 118/79 104/81 (mmHg) O2 Sat by Pulse 95 100 94 Oximetry 06/09/16 06/09/16 06/09/16 13:30 13:45 14:00 Temperature Pulse Rate 92 95 100 Respiratory 21 21 18 Rate Blood Pressure 130/87 116/69 139/44 (mmHg) O2 Sat by Pulse 96 92 95 Oximetry 06/09/16 06/09/16 06/09/16 14:15 14:19 14:30 Temperature Pulse Rate 89 94 88 Respiratory 17 18 16 Rate Blood Pressure 171/121 127/74 125/70 (mmHg) O2 Sat by Pulse 96 100 96 Oximetry 06/09/16 06/09/16 06/09/16 14:45 15:00 15:15 Temperature Pulse Rate 87 87 86 Respiratory 17 15 17 Rate Blood Pressure 116/69 121/72 122/79 (mmHg) O2 Sat by Pulse 96 96 97 Oximetry 06/09/16 06/09/16 06/09/16 15:30 15:45 15:59 Temperature 98.6 F Pulse Rate 88 85 Respiratory 17 14 Rate Blood Pressure 115/72 117/64 (mmHg) O2 Sat by Pulse 99 98 Oximetry 06/09/16 06/09/16 06/09/16 16:00 16:15 16:30 Temperature Pulse Rate 85 85 85 Respiratory 14 13 16 Rate Blood Pressure 114/69 111/69 114/70 (mmHg) O2 Sat by Pulse 98 98 97 Oximetry 06/09/16 06/09/16 06/09/16 16:45 17:00 17:15 Temperature Pulse Rate 85 85 86 Respiratory 13 18 18 Rate Blood Pressure 132/81 126/80 118/72 (mmHg) O2 Sat by Pulse 98 99 98 Oximetry 06/09/16 06/09/16 06/09/16 17:30 17:45 18:00 Temperature Pulse Rate 85 84 88 Respiratory 17 14 26 Rate Blood Pressure 132/79 129/78 138/74 (mmHg) O2 Sat by Pulse 95 97 98 Oximetry 06/09/16 06/09/16 06/09/16 18:15 18:30 18:45 Temperature Pulse Rate 88 101 90 Respiratory 19 20 17 Rate Blood Pressure 121/72 128/70 119/69 (mmHg) O2 Sat by Pulse 93 93 90 Oximetry 06/09/16 06/09/16 06/09/16 19:00 19:15 19:30 Temperature Pulse Rate 88 88 98 Respiratory 17 18 24 Rate Blood Pressure 119/71 114/72 117/57 (mmHg) O2 Sat by Pulse 96 96 96 Oximetry 06/09/16 06/09/16 06/09/16 19:38 19:45 20:00 Temperature 98.0 F Pulse Rate 88 97 Respiratory 19 22 Rate Blood Pressure 121/74 131/69 (mmHg) O2 Sat by Pulse 93 96 Oximetry 06/09/16 06/09/16 06/09/16 20:15 20:30 20:45 Temperature Pulse Rate 88 88 88 Respiratory 17 14 14 Rate Blood Pressure 132/78 135/77 129/78 (mmHg) O2 Sat by Pulse 96 95 96 Oximetry 06/09/16 06/09/16 06/09/16 21:00 21:15 21:30 Temperature Pulse Rate 87 89 87 Respiratory 16 17 14 Rate Blood Pressure 124/80 119/100 122/73 (mmHg) O2 Sat by Pulse 95 94 97 Oximetry 06/09/16 06/09/16 06/09/16 21:45 22:00 22:15 Temperature Pulse Rate 87 85 84 Respiratory 11 17 14 Rate Blood Pressure 124/78 118/94 131/80 (mmHg) O2 Sat by Pulse 97 96 97 Oximetry 06/09/16 06/09/16 06/09/16 22:25 22:30 22:45 Temperature Pulse Rate 82 84 82 Respiratory 18 15 13 Rate Blood Pressure 125/73 126/75 (mmHg) O2 Sat by Pulse 98 93 92 Oximetry 06/09/16 06/09/16 06/10/16 23:00 23:30 00:00 Temperature 97.4 F Pulse Rate 84 88 86 Respiratory 15 20 13 Rate Blood Pressure 132/80 126/74 (mmHg) O2 Sat by Pulse 96 98 95 Oximetry 06/10/16 06/10/16 06/10/16 00:01 00:30 01:00 Temperature Pulse Rate 86 83 80 Respiratory 17 16 16 Rate Blood Pressure 131/74 113/63 110/74 (mmHg) O2 Sat by Pulse 94 94 92 Oximetry 06/10/16 06/10/16 06/10/16 01:30 02:00 02:30 Temperature Pulse Rate 79 81 80 Respiratory 18 16 12 Rate Blood Pressure 115/71 118/76 111/66 (mmHg) O2 Sat by Pulse 93 95 93 Oximetry 06/10/16 06/10/16 06/10/16 03:00 03:30 03:41 Temperature 97.0 F Pulse Rate 79 78 Respiratory 12 14 Rate Blood Pressure 106/65 109/70 (mmHg) O2 Sat by Pulse 93 96 Oximetry 06/10/16 06/10/16 06/10/16 04:00 04:30 05:00 Temperature Pulse Rate 86 77 77 Respiratory 13 12 14 Rate Blood Pressure 107/69 109/67 115/75 (mmHg) O2 Sat by Pulse 91 95 94 Oximetry 06/10/16 06/10/16 06/10/16 05:30 06:00 06:30 Temperature Pulse Rate 75 80 78 Respiratory 17 20 14 Rate Blood Pressure 118/70 114/76 116/75 (mmHg) O2 Sat by Pulse 97 96 93 Oximetry 06/10/16 06/10/16 06/10/16 07:00 07:30 07:45 Temperature 97.9 F Pulse Rate 78 78 79 Respiratory 14 15 16 Rate Blood Pressure 106/69 118/75 (mmHg) O2 Sat by Pulse 93 97 96 Oximetry 06/10/16 06/10/16 06/10/16 08:00 08:30 09:00 Temperature Pulse Rate 80 78 77 Respiratory 12 16 14 Rate Blood Pressure 123/74 125/84 104/81 (mmHg) O2 Sat by Pulse 95 97 95 Oximetry 06/10/16 06/10/16 06/10/16 09:30 10:00 11:18 Temperature 97.5 F Pulse Rate 83 103 Respiratory 16 19 Rate Blood Pressure 105/71 118/68 (mmHg) O2 Sat by Pulse 93 93 Oximetry Oxygen Devices in Use Now: CPAP/BiPAP Appearance: sitting in chair. NAD Eyes: No Scleral Icterus, PERRLA Ears/Nose/Mouth/Throat: Clear Oropharnyx, Mucous Membranes Moist Neck: NL Appearance and Movements; NL JVP, Trachea Midline Respiratory: Symmetrical Chest Expansion and Respiratory Effort, - - decreased throughout Cardiovascular: RRR Abdominal: NL Sounds; No Tenderness; No Distention, No Hepatosplenomegaly Extremities: - - 2+ LE edema Skin: No Rash or Ulcers Neurological: Alert and Oriented x 3 Result Diagrams: 06/10/16 05:35 06/10/16 05:35 Additional Lab and Data: Lab Results 06/08/16 06/08/16 06/08/16 Range/Units 08:45 08:45 08:45 WBC 6.8 (3.5-10.8) 10^3/ul RBC 5.81 H (4.0-5.4) 10^6/ul Hgb 16.7 H (12.0-16.0) g/dl Hct 54 H (35-47) % MCV 92 (80-97) fL MCH 29 (27-31) pg MCHC 31 (31-36) g/dl RDW 17 H (10.5-15) % Plt Count 224 (150-450) 10^3/ul MPV 8 (7.4-10.4) um3 Neut % (Auto) 81.5 (38-83) % Lymph % (Auto) 6.1 L (25-47) % [place] % (Auto) 10.8 H (1-9) % Eos % (Auto) 0.8 (0-6) % Baso % (Auto) 0.8 (0-2) % Absolute Neuts (auto) 5.5 (1.5-7.7) 10^3/ul Absolute Lymphs (auto) 0.4 L (1.0-4.8) 10^3/ul Absolute Monos (auto) 0.7 (0-0.8) 10^3/ul Absolute Eos (auto) 0.1 (0-0.6) 10^3/ul Absolute Basos (auto) 0.1 (0-0.2) 10^3/ul Absolute Nucleated RBC 0.02 10^3/ul Nucleated RBC % 0.3 INR (Anticoag Therapy) 1.12 H (0.89-1.11) APTT Pending Sodium 139 (133-145) mmol/L Potassium TNP Chloride 98 L (101-111) mmol/L Carbon Dioxide 34 H (22-32) mmol/L Anion Gap TNP BUN 20 (6-24) mg/dL Creatinine 1.03 H (0.51-0.95) mg/dL Est GFR ( Amer) 71.5 (>60) Est GFR (Non-Af Amer) 55.6 (>60) BUN/Creatinine Ratio 19.4 (8-20) Glucose 120 H (70-100) mg/dL Hemoglobin A1c (Less than 6.0) % Lactic Acid (0.5-2.0) mmol/L Calcium 9.4 (8.6-10.3) mg/dL Total Bilirubin 1.40 H (0.2-1.0) mg/dL AST TNP ALT 16 (7-52) U/L Alkaline Phosphatase 50 (34-104) U/L Troponin I 0.11 H* (<0.04) ng/mL B-Natriuretic Peptide ( - 100) pg/mL Total Protein 6.2 L (6.4-8.9) g/dL Albumin 3.4 (3.2-5.2) g/dL Globulin 2.8 (2-4) g/dL Albumin/Globulin Ratio 1.2 (1-3) TSH Pending 06/08/16 06/08/16 06/08/16 Range/Units 08:45 08:45 08:45 WBC (3.5-10.8) 10^3/ul RBC (4.0-5.4) 10^6/ul Hgb (12.0-16.0) g/dl Hct (35-47) % MCV (80-97) fL MCH (27-31) pg MCHC (31-36) g/dl RDW (10.5-15) % Plt Count (150-450) 10^3/ul MPV (7.4-10.4) um3 Neut % (Auto) (38-83) % Lymph % (Auto) (25-47) % [place] % (Auto) (1-9) % Eos % (Auto) (0-6) % Baso % (Auto) (0-2) % Absolute Neuts (auto) (1.5-7.7) 10^3/ul Absolute Lymphs (auto) (1.0-4.8) 10^3/ul Absolute Monos (auto) (0-0.8) 10^3/ul Absolute Eos (auto) (0-0.6) 10^3/ul Absolute Basos (auto) (0-0.2) 10^3/ul Absolute Nucleated RBC 10^3/ul Nucleated RBC % INR (Anticoag Therapy) (0.89-1.11) APTT Sodium (133-145) mmol/L Potassium Chloride (101-111) mmol/L Carbon Dioxide (22-32) mmol/L Anion Gap BUN (6-24) mg/dL Creatinine (0.51-0.95) mg/dL Est GFR ( Amer) (>60) Est GFR (Non-Af Amer) (>60) BUN/Creatinine Ratio (8-20) Glucose (70-100) mg/dL Hemoglobin A1c 7.3 H (Less than 6.0) % Lactic Acid 2.0 (0.5-2.0) mmol/L Calcium (8.6-10.3) mg/dL Total Bilirubin (0.2-1.0) mg/dL AST ALT (7-52) U/L Alkaline Phosphatase (34-104) U/L Troponin I (<0.04) ng/mL B-Natriuretic Peptide 885 H ( - 100) pg/mL Total Protein (6.4-8.9) g/dL Albumin (3.2-5.2) g/dL Globulin (2-4) g/dL Albumin/Globulin Ratio (1-3) TSH Assess/Plan/Problems-Billing Assessment: 55 yo F with poor medical care follow up presents with 2 weeks increasing LE edema and SOB found with RV pressure overload with stay complicated by hypercarbic respiratory failure - Patient Problems (1) Hypercapnic respiratory failure Comment: Suspect poor respiratory reserve Possible COPD exacerbation Start IV steroids and follow for improvement CPAP at night and with naps during the day (2) Acute cor pulmonale Comment: Suspect acute cor pulm as etiology of RV failure IV lasix with strict I/O and daily weights --Suspect lower dose of lasix tomorrow ABG unchanged after CPAP overnighted - noted that she had poor tidal volumes overnight Treat COPD as below (3) Edema Comment: lower extremity in setting of RV failure/cor pulm lasix IV as above (4) Diabetes Comment: new dx. HbA1c 7.3% Start metformin 500BID 06/09 Insulin lispro SS (5) COPD (chronic obstructive pulmonary disease) Comment: New dx - clinical dx. Will need PFTs Started dulera and tiotropium IV steroids started 06/10 (6) DVT prophylaxis Comment: HSQ
[2016-06-10] MEDS: methylPREDNISolone SOD SUCC* 125 MG 2 ML VIAL IV SCH ×2 (12:44→20:20)
[2016-06-10] MEDS: Acetaminophen TAB* 325 MG PO PRN (17:15)
[2016-06-10] MEDS: Mometasone/Formoter 200/5 MDI INH SCH (21:37)
[2016-06-11] MEDS: methylPREDNISolone SOD SUCC* 125 MG 2 ML VIAL IV SCH ×3 (05:00→20:25)
[2016-06-11] MEDS: Heparin VIAL(*) 5000 UNITS/ML VIAL (FIVE THOUSAND) SUBCUT SCH ×3 (06:23→20:55)
[2016-06-11] MEDS ORDERED: Furosemide IV* 10 MG/ML 2 ML VIAL (20 MG) IV ONE (07:25)
--- NOTE | 2016-06-11 07:54 | PN ---
Subjective Date of Service: 06/11/16 Interval History: Awake but less conversant today. Does not seem to want to participate in conversation. Denies depression. Unable to give details as to why she is in the hospital despite long conversations together with this author. She offers "I have pneumonia?" as one possibility. +cough productive of clear/yellow sputum. More sputum production today. Objective Active Medications: Acetaminophen (Tylenol Tab*) 650 mg PO Q4H PRN PRN Reason: FEVER/PAIN Last Admin: 06/10/16 17:15 Dose: 650 mg Albuterol/Ipratropium (Duoneb Neb.Ingrid*) 1 neb INH Q6H PRN PRN Reason: SOB/WHEEZING Last Admin: 06/10/16 13:26 Dose: 1 neb Dextrose (D50w Syringe 50 Ml*) 12.5 gm IV PUSH .FOR FS < 60 - SS PRN PRN Reason: FS < 60 Heparin Sodium (Porcine) (Heparin Vial(*)) 5,000 units SUBCUT Q8HR [facility] Last Admin: 06/11/16 06:23 Dose: 5,000 units Insulin Human Lispro (Humalog*) 0 units SUBCUT ACHS [facility] PRN Reason: Protocol Metformin HCl (Glucophage*) 500 mg PO 0800,1700 [facility] Last Admin: 06/10/16 17:11 Dose: 500 mg Methylprednisolone Sodium Succinate (Solu-Medrol*) 60 mg IV Q8H [facility] Last Admin: 06/11/16 05:00 Dose: 60 mg Mometasone Furoate/Formoterol Fumar (Dulera 200/5 Mdi*) 2 puff INH BID [facility] Last Admin: 06/10/16 21:37 Dose: 2 puff Paroxetine HCl (Paxil Tab*) 20 mg PO DAILY [facility] Last Admin: 06/10/16 09:35 Dose: 20 mg Tiotropium [place] (Spiriva Cap.Inh*) 1 cap INH DAILY [facility] Last Admin: 06/10/16 07:39 Dose: Not Given Vital Signs 06/10/16 06/10/16 06/10/16 08:00 08:30 09:00 Temperature Pulse Rate 80 78 77 Respiratory 12 16 14 Rate Blood Pressure 123/74 125/84 104/81 (mmHg) O2 Sat by Pulse 95 97 95 Oximetry 06/10/16 06/10/16 06/10/16 09:30 10:00 10:30 Temperature Pulse Rate 83 103 90 Respiratory 16 19 18 Rate Blood Pressure 105/71 118/68 109/67 (mmHg) O2 Sat by Pulse 93 93 95 Oximetry 06/10/16 06/10/16 06/10/16 11:00 11:18 11:30 Temperature 97.5 F Pulse Rate 87 92 Respiratory 17 18 Rate Blood Pressure 111/70 115/61 (mmHg) O2 Sat by Pulse 96 96 Oximetry 06/10/16 06/10/16 06/10/16 12:00 12:30 13:00 Temperature Pulse Rate 88 86 87 Respiratory 16 17 18 Rate Blood Pressure 109/59 112/62 119/78 (mmHg) O2 Sat by Pulse 96 95 96 Oximetry 06/10/16 06/10/16 06/10/16 13:26 13:30 14:00 Temperature Pulse Rate 84 84 87 Respiratory 19 17 21 Rate Blood Pressure 126/71 122/69 (mmHg) O2 Sat by Pulse 95 96 95 Oximetry 06/10/16 06/10/16 06/10/16 14:30 15:00 15:30 Temperature Pulse Rate 86 88 89 Respiratory 16 19 19 Rate Blood Pressure 124/72 110/69 114/71 (mmHg) O2 Sat by Pulse 95 89 90 Oximetry 06/10/16 06/10/16 06/10/16 16:00 16:30 17:00 Temperature 98.2 F Pulse Rate 87 98 88 Respiratory 18 18 18 Rate Blood Pressure 119/73 120/70 120/81 (mmHg) O2 Sat by Pulse 94 95 93 Oximetry 06/10/16 06/10/16 06/10/16 17:30 18:00 18:30 Temperature Pulse Rate 86 87 93 Respiratory 17 17 17 Rate Blood Pressure 124/78 117/67 108/64 (mmHg) O2 Sat by Pulse 94 95 93 Oximetry 06/10/16 06/10/16 06/10/16 19:00 19:30 19:32 Temperature 96.7 F Pulse Rate 89 87 Respiratory 18 15 Rate Blood Pressure 114/71 109/66 (mmHg) O2 Sat by Pulse 93 94 Oximetry 06/10/16 06/10/16 06/10/16 20:00 20:30 21:00 Temperature Pulse Rate 101 85 76 Respiratory 17 19 17 Rate Blood Pressure 115/66 115/62 124/68 (mmHg) O2 Sat by Pulse 95 95 95 Oximetry 06/10/16 06/10/16 06/10/16 21:30 22:00 22:30 Temperature Pulse Rate 84 88 84 Respiratory 16 14 13 Rate Blood Pressure 116/68 128/76 124/68 (mmHg) O2 Sat by Pulse 95 92 93 Oximetry 06/10/16 06/10/16 06/10/16 23:00 23:05 23:30 Temperature Pulse Rate 84 83 80 Respiratory 13 15 15 Rate Blood Pressure 116/71 110/62 (mmHg) O2 Sat by Pulse 93 92 93 Oximetry 06/11/16 06/11/16 06/11/16 00:00 00:01 00:30 Temperature Pulse Rate 81 81 81 Respiratory 14 13 14 Rate Blood Pressure 116/65 116/67 (mmHg) O2 Sat by Pulse 94 95 93 Oximetry 06/11/16 06/11/16 06/11/16 01:00 01:30 02:00 Temperature Pulse Rate 102 78 80 Respiratory 16 12 17 Rate Blood Pressure 114/76 117/68 127/80 (mmHg) O2 Sat by Pulse 92 94 96 Oximetry 06/11/16 06/11/16 06/11/16 02:30 03:00 03:30 Temperature Pulse Rate 84 81 79 Respiratory 13 14 18 Rate Blood Pressure 127/79 128/75 116/77 (mmHg) O2 Sat by Pulse 92 95 98 Oximetry 06/11/16 06/11/16 06/11/16 03:49 04:00 04:30 Temperature 97.2 F Pulse Rate 79 81 Respiratory 18 21 15 Rate Blood Pressure 118/79 114/74 (mmHg) O2 Sat by Pulse 98 96 Oximetry 06/11/16 06/11/16 06/11/16 05:00 05:30 06:00 Temperature Pulse Rate 78 78 80 Respiratory 16 18 16 Rate Blood Pressure 126/77 118/84 117/72 (mmHg) O2 Sat by Pulse 97 98 95 Oximetry Oxygen Devices in Use Now: Nasal Cannula Appearance: lying 45 deg, NAD Eyes: No Scleral Icterus Ears/Nose/Mouth/Throat: NL Teeth, Lips, Gums, Clear Oropharnyx Neck: Trachea Midline, - - elevated JVD Respiratory: Symmetrical Chest Expansion and Respiratory Effort, - - diffuse rhonchi anteriorly, expiratory wheeze posterior Cardiovascular: RRR Abdominal: NL Sounds; No Tenderness; No Distention, No Hepatosplenomegaly Lymphatic: No Cervical Adenopathy Extremities: - - 2+ edema to legs improving Skin: - - LE erythema has improved Neurological: Alert and Oriented x 3 Result Diagrams: 06/10/16 05:35 06/10/16 05:35 Additional Lab and Data: Lab Results 06/08/16 06/08/16 06/08/16 Range/Units 08:45 08:45 08:45 WBC 6.8 (3.5-10.8) 10^3/ul RBC 5.81 H (4.0-5.4) 10^6/ul Hgb 16.7 H (12.0-16.0) g/dl Hct 54 H (35-47) % MCV 92 (80-97) fL MCH 29 (27-31) pg MCHC 31 (31-36) g/dl RDW 17 H (10.5-15) % Plt Count 224 (150-450) 10^3/ul MPV 8 (7.4-10.4) um3 Neut % (Auto) 81.5 (38-83) % Lymph % (Auto) 6.1 L (25-47) % [place] % (Auto) 10.8 H (1-9) % Eos % (Auto) 0.8 (0-6) % Baso % (Auto) 0.8 (0-2) % Absolute Neuts (auto) 5.5 (1.5-7.7) 10^3/ul Absolute Lymphs (auto) 0.4 L (1.0-4.8) 10^3/ul Absolute Monos (auto) 0.7 (0-0.8) 10^3/ul Absolute Eos (auto) 0.1 (0-0.6) 10^3/ul Absolute Basos (auto) 0.1 (0-0.2) 10^3/ul Absolute Nucleated RBC 0.02 10^3/ul Nucleated RBC % 0.3 INR (Anticoag Therapy) 1.12 H (0.89-1.11) APTT Pending Sodium 139 (133-145) mmol/L Potassium TNP Chloride 98 L (101-111) mmol/L Carbon Dioxide 34 H (22-32) mmol/L Anion Gap TNP BUN 20 (6-24) mg/dL Creatinine 1.03 H (0.51-0.95) mg/dL Est GFR ( Amer) 71.5 (>60) Est GFR (Non-Af Amer) 55.6 (>60) BUN/Creatinine Ratio 19.4 (8-20) Glucose 120 H (70-100) mg/dL Hemoglobin A1c (Less than 6.0) % Lactic Acid (0.5-2.0) mmol/L Calcium 9.4 (8.6-10.3) mg/dL Total Bilirubin 1.40 H (0.2-1.0) mg/dL AST TNP ALT 16 (7-52) U/L Alkaline Phosphatase 50 (34-104) U/L Troponin I 0.11 H* (<0.04) ng/mL B-Natriuretic Peptide ( - 100) pg/mL Total Protein 6.2 L (6.4-8.9) g/dL Albumin 3.4 (3.2-5.2) g/dL Globulin 2.8 (2-4) g/dL Albumin/Globulin Ratio 1.2 (1-3) TSH Pending 06/08/16 06/08/16 06/08/16 Range/Units 08:45 08:45 08:45 WBC (3.5-10.8) 10^3/ul RBC (4.0-5.4) 10^6/ul Hgb (12.0-16.0) g/dl Hct (35-47) % MCV (80-97) fL MCH (27-31) pg MCHC (31-36) g/dl RDW (10.5-15) % Plt Count (150-450) 10^3/ul MPV (7.4-10.4) um3 Neut % (Auto) (38-83) % Lymph % (Auto) (25-47) % [place] % (Auto) (1-9) % Eos % (Auto) (0-6) % Baso % (Auto) (0-2) % Absolute Neuts (auto) (1.5-7.7) 10^3/ul Absolute Lymphs (auto) (1.0-4.8) 10^3/ul Absolute Monos (auto) (0-0.8) 10^3/ul Absolute Eos (auto) (0-0.6) 10^3/ul Absolute Basos (auto) (0-0.2) 10^3/ul Absolute Nucleated RBC 10^3/ul Nucleated RBC % INR (Anticoag Therapy) (0.89-1.11) APTT Sodium (133-145) mmol/L Potassium Chloride (101-111) mmol/L Carbon Dioxide (22-32) mmol/L Anion Gap BUN (6-24) mg/dL Creatinine (0.51-0.95) mg/dL Est GFR ( Amer) (>60) Est GFR (Non-Af Amer) (>60) BUN/Creatinine Ratio (8-20) Glucose (70-100) mg/dL Hemoglobin A1c 7.3 H (Less than 6.0) % Lactic Acid 2.0 (0.5-2.0) mmol/L Calcium (8.6-10.3) mg/dL Total Bilirubin (0.2-1.0) mg/dL AST ALT (7-52) U/L Alkaline Phosphatase (34-104) U/L Troponin I (<0.04) ng/mL B-Natriuretic Peptide 885 H ( - 100) pg/mL Total Protein (6.4-8.9) g/dL Albumin (3.2-5.2) g/dL Globulin (2-4) g/dL Albumin/Globulin Ratio (1-3) TSH Assess/Plan/Problems-Billing Assessment: 55 yo F with poor medical care follow up presents with 2 weeks increasing LE edema and SOB found with RV pressure overload with stay complicated by hypercarbic respiratory failure - Patient Problems (1) Hypercapnic respiratory failure Comment: Suspect poor respiratory reserve COPD exacerbation IV steroids 06/10/16 BIPAP at night and with naps during the day Will need CPAP at home on discharge (2) Acute cor pulmonale Comment: Suspect acute cor pulm as etiology of RV failure IV lasix with strict I/O and daily weights. Decrease from 40 to 20mg IV lasix. ABG unchanged after BiPAP overnighted - noted that she had poor tidal volumes overnight. Elevated pCO2 may be at baseline. Treat COPD as below (3) Edema Comment: lower extremity in setting of RV failure/cor pulm lasix IV as above (4) Diabetes Comment: new dx. HbA1c 7.3% Start metformin 500BID 06/09 Insulin lispro SS - increased to medium dose 06/11 (5) COPD (chronic obstructive pulmonary disease) Comment: New dx - clinical dx. Will need PFTs Started dulera and tiotropium IV steroids started 06/10 (6) DVT prophylaxis Comment: HSQ Status and Disposition: Improving with diuresis, steroids, and CPAP. Continued hospital stay for diuresis, IV steroids
[2016-06-11 08:05] LABS: BUN/Creatinine Ratio 19.7 (8-20); Calcium 9.5 mg/dL (8.6-10.3); EGFR African American 109.9 (>60); EGFR Non-African American 85.5 (>60); Potassium 5.1 mmol/L (3.5-5.0)
[2016-06-11] MEDS: metFORMIN* 500 MG TAB PO SCH ×2 (08:37→17:36)
[2016-06-11] MEDS: Mometasone/Formoter 200/5 MDI INH SCH ×2 (08:54→20:31)
[2016-06-11] MEDS: Tiotropium CAP.INH* CAP.INH/18 MCG INH SCH (08:55)
[2016-06-11] MEDS: PARoxetine HCL TAB* 20 MG PO SCH (08:56)
[2016-06-11] MEDS: Insulin LISPRO* 1 UNITS UNIT SUBCUT SCH ×4 (12:44→20:54)
[2016-06-12] MEDS: methylPREDNISolone SOD SUCC* 125 MG 2 ML VIAL IV SCH ×3 (03:18→22:00)
[2016-06-12] MEDS: Heparin VIAL(*) 5000 UNITS/ML VIAL (FIVE THOUSAND) SUBCUT SCH ×3 (05:00→21:02)
[2016-06-12 06:39] LABS: BUN/Creatinine Ratio 25.4 (8-20); EGFR African American 117.5 (>60); EGFR Non-African American 91.4 (>60)
[2016-06-12] MEDS: Tiotropium CAP.INH* CAP.INH/18 MCG INH SCH (07:55)
[2016-06-12] MEDS: Mometasone/Formoter 200/5 MDI INH SCH ×2 (07:55→20:19)
[2016-06-12] MEDS: PARoxetine HCL TAB* 20 MG PO SCH (08:18)
[2016-06-12] MEDS: Insulin LISPRO* 1 UNITS UNIT SUBCUT SCH ×4 (08:18→21:01)
[2016-06-12] MEDS: metFORMIN* 500 MG TAB PO SCH ×2 (08:18→17:36)
[2016-06-12 08:48] LABS: Venous Bicarbonate HCO3 40.9 mmol/L (24-28)
[2016-06-12] MEDS ORDERED: Furosemide IV* 10 MG/ML VIAL (40 MG) IV ONE (10:33)
--- NOTE | 2016-06-12 10:36 | PN ---
Subjective Date of Service: 06/12/16 Interval History: Pt feels well. Legs still swollen. Uses BIPAP nightly. C/o intermittent nonproductive cough Objective Active Medications: Acetaminophen (Tylenol Tab*) 650 mg PO Q4H PRN PRN Reason: FEVER/PAIN Last Admin: 06/10/16 17:15 Dose: 650 mg Albuterol/Ipratropium (Duoneb Neb.Ingrid*) 1 neb INH Q6H PRN PRN Reason: SOB/WHEEZING Last Admin: 06/10/16 13:26 Dose: 1 neb Dextrose (D50w Syringe 50 Ml*) 12.5 gm IV PUSH .FOR FS < 60 - SS PRN PRN Reason: FS < 60 Furosemide (Lasix Iv*) 40 mg IV ONCE ONE Stop: 06/12/16 10:34 Heparin Sodium (Porcine) (Heparin Vial(*)) 5,000 units SUBCUT Q8HR [facility] Last Admin: 06/12/16 05:00 Dose: 5,000 units Insulin Human Lispro (Humalog*) 0 units SUBCUT ACHS [facility] PRN Reason: Protocol Last Admin: 06/12/16 08:18 Dose: 2 units Metformin HCl (Glucophage*) 500 mg PO 0800,1700 [facility] Last Admin: 06/12/16 08:18 Dose: 500 mg Methylprednisolone Sodium Succinate (Solu-Medrol*) 60 mg IV Q8H [facility] Last Admin: 06/12/16 03:18 Dose: 60 mg Mometasone Furoate/Formoterol Fumar (Dulera 200/5 Mdi*) 2 puff INH BID [facility] Last Admin: 06/12/16 07:55 Dose: 2 puff Paroxetine HCl (Paxil Tab*) 20 mg PO DAILY [facility] Last Admin: 06/12/16 08:18 Dose: 20 mg Tiotropium [place] (Spiriva Cap.Inh*) 1 cap INH DAILY [facility] Last Admin: 06/12/16 07:55 Dose: 1 cap Vital Signs 06/11/16 06/11/16 06/11/16 11:00 11:30 12:00 Temperature 97.6 F Pulse Rate 95 85 105 Respiratory 16 18 19 Rate Blood Pressure 127/107 119/80 (mmHg) O2 Sat by Pulse 94 97 93 Oximetry 06/11/16 06/11/16 06/11/16 12:30 13:00 14:12 Temperature 98.4 F Pulse Rate 102 93 88 Respiratory 24 18 18 Rate Blood Pressure 125/69 111/60 116/66 (mmHg) O2 Sat by Pulse 96 96 99 Oximetry 06/11/16 06/11/16 06/11/16 16:43 19:46 20:47 Temperature 98.6 F 98.4 F Pulse Rate 85 87 Respiratory 20 18 18 Rate Blood Pressure 122/76 119/73 (mmHg) O2 Sat by Pulse 96 95 Oximetry 06/11/16 06/11/16 06/11/16 21:51 21:52 23:13 Temperature 97.6 F Pulse Rate 88 88 91 Respiratory 20 20 20 Rate Blood Pressure 130/82 (mmHg) O2 Sat by Pulse 95 95 97 Oximetry 06/11/16 06/11/16 06/12/16 23:25 23:32 03:26 Temperature 98.4 F 97.4 F Pulse Rate 85 83 Respiratory 20 18 Rate Blood Pressure 120/77 134/74 (mmHg) O2 Sat by Pulse 97 97 Oximetry 06/12/16 06/12/16 07:49 08:01 Temperature 99.5 F Pulse Rate 78 86 Respiratory 16 18 Rate Blood Pressure 124/74 (mmHg) O2 Sat by Pulse 92 96 Oximetry Oxygen Devices in Use Now: Nasal Cannula - at 2 l Appearance: 55 yo , obese F in NAD, aAOx3 Eyes: No Scleral Icterus, PERRLA Ears/Nose/Mouth/Throat: NL Teeth, Lips, Gums, Mucous Membranes Moist Neck: NL Appearance and Movements; NL JVP, Trachea Midline Respiratory: Symmetrical Chest Expansion and Respiratory Effort, - - intermittent rhonchi in R mid lung Cardiovascular: NL Sounds; No Murmurs; No JVD, RRR Abdominal: NL Sounds; No Tenderness; No Distention, No Hepatosplenomegaly Lymphatic: No Cervical Adenopathy Extremities: No Clubbing, Cyanosis, - - +2 pitting pedeal edema b/l Skin: No Rash or Ulcers, No Nodules or Sclerosis Neurological: Alert and Oriented x 3, NL Muscle Strength and Tone Result Diagrams: 06/10/16 05:35 06/12/16 05:51 Additional Lab and Data: Lab Results 06/08/16 06/08/16 06/08/16 Range/Units 08:45 08:45 08:45 WBC 6.8 (3.5-10.8) 10^3/ul RBC 5.81 H (4.0-5.4) 10^6/ul Hgb 16.7 H (12.0-16.0) g/dl Hct 54 H (35-47) % MCV 92 (80-97) fL MCH 29 (27-31) pg MCHC 31 (31-36) g/dl RDW 17 H (10.5-15) % Plt Count 224 (150-450) 10^3/ul MPV 8 (7.4-10.4) um3 Neut % (Auto) 81.5 (38-83) % Lymph % (Auto) 6.1 L (25-47) % Norman % (Auto) 10.8 H (1-9) % Eos % (Auto) 0.8 (0-6) % Baso % (Auto) 0.8 (0-2) % Absolute Neuts (auto) 5.5 (1.5-7.7) 10^3/ul Absolute Lymphs (auto) 0.4 L (1.0-4.8) 10^3/ul Absolute Monos (auto) 0.7 (0-0.8) 10^3/ul Absolute Eos (auto) 0.1 (0-0.6) 10^3/ul Absolute Basos (auto) 0.1 (0-0.2) 10^3/ul Absolute Nucleated RBC 0.02 10^3/ul Nucleated RBC % 0.3 INR (Anticoag Therapy) 1.12 H (0.89-1.11) APTT Pending Sodium 139 (133-145) mmol/L Potassium TNP Chloride 98 L (101-111) mmol/L Carbon Dioxide 34 H (22-32) mmol/L Anion Gap TNP BUN 20 (6-24) mg/dL Creatinine 1.03 H (0.51-0.95) mg/dL Est GFR ( Amer) 71.5 (>60) Est GFR (Non-Af Amer) 55.6 (>60) BUN/Creatinine Ratio 19.4 (8-20) Glucose 120 H (70-100) mg/dL Hemoglobin A1c (Less than 6.0) % Lactic Acid (0.5-2.0) mmol/L Calcium 9.4 (8.6-10.3) mg/dL Total Bilirubin 1.40 H (0.2-1.0) mg/dL AST TNP ALT 16 (7-52) U/L Alkaline Phosphatase 50 (34-104) U/L Troponin I 0.11 H* (<0.04) ng/mL B-Natriuretic Peptide ( - 100) pg/mL Total Protein 6.2 L (6.4-8.9) g/dL Albumin 3.4 (3.2-5.2) g/dL Globulin 2.8 (2-4) g/dL Albumin/Globulin Ratio 1.2 (1-3) TSH Pending 06/08/16 06/08/16 06/08/16 Range/Units 08:45 08:45 08:45 WBC (3.5-10.8) 10^3/ul RBC (4.0-5.4) 10^6/ul Hgb (12.0-16.0) g/dl Hct (35-47) % MCV (80-97) fL MCH (27-31) pg MCHC (31-36) g/dl RDW (10.5-15) % Plt Count (150-450) 10^3/ul MPV (7.4-10.4) um3 Neut % (Auto) (38-83) % Lymph % (Auto) (25-47) % Norman % (Auto) (1-9) % Eos % (Auto) (0-6) % Baso % (Auto) (0-2) % Absolute Neuts (auto) (1.5-7.7) 10^3/ul Absolute Lymphs (auto) (1.0-4.8) 10^3/ul Absolute Monos (auto) (0-0.8) 10^3/ul Absolute Eos (auto) (0-0.6) 10^3/ul Absolute Basos (auto) (0-0.2) 10^3/ul Absolute Nucleated RBC 10^3/ul Nucleated RBC % INR (Anticoag Therapy) (0.89-1.11) APTT Sodium (133-145) mmol/L Potassium Chloride (101-111) mmol/L Carbon Dioxide (22-32) mmol/L Anion Gap BUN (6-24) mg/dL Creatinine (0.51-0.95) mg/dL Est GFR ( Amer) (>60) Est GFR (Non-Af Amer) (>60) BUN/Creatinine Ratio (8-20) Glucose (70-100) mg/dL Hemoglobin A1c 7.3 H (Less than 6.0) % Lactic Acid 2.0 (0.5-2.0) mmol/L Calcium (8.6-10.3) mg/dL Total Bilirubin (0.2-1.0) mg/dL AST ALT (7-52) U/L Alkaline Phosphatase (34-104) U/L Troponin I (<0.04) ng/mL B-Natriuretic Peptide 885 H ( - 100) pg/mL Total Protein (6.4-8.9) g/dL Albumin (3.2-5.2) g/dL Globulin (2-4) g/dL Albumin/Globulin Ratio (1-3) TSH Assess/Plan/Problems-Billing Assessment: 55 yo F with poor medical care follow up presents with 2 weeks increasing LE edema and SOB found with RV pressure overload with stay complicated by hypercarbic respiratory failure - Patient Problems (1) Hypercapnic respiratory failure Comment: Suspect poor respiratory reserve COPD exacerbation IV steroids 06/10/16 BIPAP at night and with naps during the day Will need CPAP at home on discharge (2) COPD (chronic obstructive pulmonary disease) Comment: New dx - clinical dx. Will need PFTs as outpatient. appreciate Dr. Bal's consult. will get overnight pulse Ox to qualify for CPAP Started dulera and tiotropium IV steroids started 06/10, will slowly titrate down (3) Acute cor pulmonale Comment: Suspect acute cor pulm as etiology of RV failure , troponin elevated due to it. Aprreciated Dr. Ring's consult IV lasix with strict I/O and daily weights. VBG with improved Ph, acidosis is resolved. Elevated pCO2 may be at baseline. Note: pericardial effusion on CTA was small on Echo (4) Edema Comment: lower extremity in setting of RV failure/cor pulm lasix IV as above dopplers negative for DVT (5) Diabetes Comment: new dx. HbA1c 7.3% cont metformin 500 BID 06/09 Insulin lispro SS - increased to medium dose 06/11 (6) DVT prophylaxis Comment: HSQ Status and Disposition: Improving with diuresis, steroids, and CPAP. Continued hospital stay for diuresis, IV steroids
--- NOTE | 2016-06-12 17:52 | PN ---
Progress Note - Progress Note Note: Pulm consult f/u note 06/12/16. Pt seen and examined at bed side. Pt reports improvement in breathing. She is more alert than before. Active Medications Generic Name Dose Route Start Last Admin Trade Name Freq PRN Reason Stop Dose Admin Acetaminophen 650 mg 06/08/16 11:04 06/10/16 17:15 Tylenol Tab* PO 650 mg Q4H PRN Administration FEVER/PAIN Albuterol/Ipratropium 1 neb 06/08/16 11:07 06/10/16 13:26 Duoneb Neb.Ingrid* INH 1 neb Q6H PRN Administration SOB/WHEEZING Dextrose 12.5 gm 06/09/16 09:45 D50w Syringe 50 Ml* IV PUSH .FOR FS < 60 - SS PRN FS < 60 Heparin Sodium (Porcine) 5,000 units 06/08/16 22:00 06/12/16 14:21 Heparin Vial(*) SUBCUT 5,000 units Q8HR [facility] Administration Insulin Human Lispro 0 units 06/11/16 07:47 06/12/16 17:36 Humalog* SUBCUT 1 units ACHS [facility] Administration Protocol Metformin HCl 500 mg 06/09/16 17:00 06/12/16 17:36 Glucophage* PO 500 mg 0800,1700 [facility] Administration Methylprednisolone Sodium Succinate 60 mg 06/12/16 11:00 06/12/16 11:30 Solu-Medrol* IV 60 mg Q12H [facility] Administration Mometasone Furoate/Formoterol Fumar 2 puff 06/10/16 21:00 06/12/16 07:55 Dulera 200/5 Mdi* INH 2 puff BID [facility] Administration Paroxetine HCl 20 mg 06/09/16 09:00 06/12/16 08:18 Paxil Tab* PO 20 mg DAILY [facility] Administration Tiotropium [place] 1 cap 06/10/16 09:00 06/12/16 07:55 Spiriva Cap.Inh* INH 1 cap DAILY [facility] Administration Vital Signs Temp Pulse Resp BP Pulse Ox 99.5 F 86 18 124/74 96 06/12/16 07:49 06/12/16 08:01 06/12/16 08:01 06/12/16 07:49 06/12/16 08:01 Gen: Alert, oriented x 3 HEENT: Clear Oropharnyx Neck: - No jvp Respiratory: Symmetrical Chest Expansion and Respiratory Effort,scaterred rhonchi Cardiovascular: RRR, no significant murmur, 2+ edema Abdominal: obese, distended Extremities: No Clubbing, Cyanosis Skin: No Rash or Ulcers Neurological: Alert and Oriented x 3 Laboratory Results: Laboratory Results - last 24 hr 06/11/16 06/12/16 06/12/16 20:28 05:51 07:38 VBG pH VBG pCO2 VBG pO2 VBG HCO3 VBG O2 Saturation VBG Base Excess Sodium 135 Potassium 5.0 Chloride 92 L Carbon Dioxide 44 H* Anion Gap -1 L BUN 17 Creatinine 0.67 Est GFR ( Amer) 117.5 Est GFR (Non-Af Amer) 91.4 BUN/Creatinine Ratio 25.4 H Glucose 145 H POC Glucose (mg/dL) 145 H 155 H Calcium 9.0 06/12/16 06/12/16 06/12/16 08:41 11:40 16:52 VBG pH 7.35 VBG pCO2 98 H VBG pO2 40 VBG HCO3 40.9 H VBG O2 Saturation 77.0 VBG Base Excess 21.5 H Sodium Potassium Chloride Carbon Dioxide Anion Gap BUN Creatinine Est GFR ( Amer) Est GFR (Non-Af Amer) BUN/Creatinine Ratio Glucose POC Glucose (mg/dL) 256 H 149 H Calcium ABG 06/09/2016: pH 7.24, PCO2 104, P02 44 EKG: sinus tachycardia, PAC's, low limb lead and precordial voltage CT chest as described above in HPI Impression/Recommendations: 55 year old obese female with a history of tobacco use with mixed hypercapnic/ hypoxemic respiratory failure, acute on chronic hypercapnia likely secondary to volume overload from RV failure, underlying COPD, possible EREN and group II pulmonary HTN and cor pulmonale. Pt with good clinical improvement - Continue IV diuretics as tolerated - Continue BiPAP at night - Evaluation for sleep apnea/obesity hypoventilation syndrome as out pt - Will need PFTs as out pt - c/w bronchodilators - Titrate FiO2 as tolerated
[2016-06-13] MEDS: Heparin VIAL(*) 5000 UNITS/ML VIAL (FIVE THOUSAND) SUBCUT SCH ×3 (05:05→21:24)
[2016-06-13 05:19] LABS: BUN/Creatinine Ratio 31.9 (8-20); Calcium 9.5 mg/dL (8.6-10.3); EGFR African American 113.6 (>60); EGFR Non-African American 88.3 (>60); Potassium 4.9 mmol/L (3.5-5.0)
[2016-06-13] MEDS: Insulin LISPRO* 1 UNITS UNIT SUBCUT SCH ×4 (08:02→21:25)
[2016-06-13] MEDS: metFORMIN* 500 MG TAB PO SCH ×2 (08:19→17:04)
[2016-06-13] MEDS: PARoxetine HCL TAB* 20 MG PO SCH (08:20)
[2016-06-13] MEDS: Mometasone/Formoter 200/5 MDI INH SCH ×2 (09:24→20:04)
[2016-06-13] MEDS: Tiotropium CAP.INH* CAP.INH/18 MCG INH SCH (09:24)
--- NOTE | 2016-06-13 10:07 | PN ---
Subjective Date of Service: 06/13/16 Interval History: Matos discontinued yesterday. No problems with urination since then. Denies cough. Legs less swollen. Objective Active Medications: Acetaminophen (Tylenol Tab*) 650 mg PO Q4H PRN PRN Reason: FEVER/PAIN Last Admin: 06/10/16 17:15 Dose: 650 mg Albuterol/Ipratropium (Duoneb Neb.Ingrid*) 1 neb INH Q6H PRN PRN Reason: SOB/WHEEZING Last Admin: 06/10/16 13:26 Dose: 1 neb Dextrose (D50w Syringe 50 Ml*) 12.5 gm IV PUSH .FOR FS < 60 - SS PRN PRN Reason: FS < 60 Heparin Sodium (Porcine) (Heparin Vial(*)) 5,000 units SUBCUT Q8HR [facility] Last Admin: 06/13/16 05:05 Dose: 5,000 units Insulin Human Lispro (Humalog*) 0 units SUBCUT ACHS [facility] PRN Reason: Protocol Last Admin: 06/13/16 08:02 Dose: Not Given Metformin HCl (Glucophage*) 500 mg PO 0800,1700 [facility] Last Admin: 06/13/16 08:19 Dose: 500 mg Methylprednisolone Sodium Succinate (Solu-Medrol*) 60 mg IV Q12H [facility] Last Admin: 06/12/16 22:00 Dose: 60 mg Mometasone Furoate/Formoterol Fumar (Dulera 200/5 Mdi*) 2 puff INH BID [facility] Last Admin: 06/13/16 09:24 Dose: 2 puff Paroxetine HCl (Paxil Tab*) 20 mg PO DAILY [facility] Last Admin: 06/13/16 08:20 Dose: 20 mg Tiotropium [place] (Spiriva Cap.Inh*) 1 cap INH DAILY [facility] Last Admin: 06/13/16 09:24 Dose: 1 cap Vital Signs 06/12/16 06/12/16 06/12/16 15:19 19:06 19:25 Temperature Pulse Rate 88 86 Respiratory 18 16 Rate Blood Pressure 118/66 126/80 (mmHg) O2 Sat by Pulse 96 94 Oximetry 06/12/16 06/12/16 06/13/16 20:00 23:55 04:00 Temperature 97.4 F 98.1 F Pulse Rate 85 82 80 Respiratory 20 16 16 Rate Blood Pressure 133/85 122/70 (mmHg) O2 Sat by Pulse 98 98 97 Oximetry 06/13/16 06/13/16 06/13/16 06:25 06:46 07:49 Temperature 97.9 F Pulse Rate 76 Respiratory 18 16 Rate Blood Pressure 133/85 (mmHg) O2 Sat by Pulse 97 97 Oximetry 06/13/16 09:27 Temperature Pulse Rate 72 Respiratory 16 Rate Blood Pressure (mmHg) O2 Sat by Pulse 98 Oximetry Oxygen Devices in Use Now: Nasal Cannula - at 2 l Appearance: 55 yo obese F in NAd, aAOx3 Eyes: No Scleral Icterus, PERRLA Ears/Nose/Mouth/Throat: NL Teeth, Lips, Gums, Mucous Membranes Moist Neck: NL Appearance and Movements; NL JVP, Trachea Midline Respiratory: Symmetrical Chest Expansion and Respiratory Effort, - - scattered mid lung wheezes b/l Cardiovascular: NL Sounds; No Murmurs; No JVD, RRR Abdominal: NL Sounds; No Tenderness; No Distention, No Hepatosplenomegaly Lymphatic: No Cervical Adenopathy Extremities: No Clubbing, Cyanosis, - - +1 pitting pedal edema Skin: No Rash or Ulcers, No Nodules or Sclerosis Neurological: Alert and Oriented x 3, NL Muscle Strength and Tone Result Diagrams: 06/10/16 05:35 06/13/16 04:33 Additional Lab and Data: Lab Results 06/08/16 06/08/16 06/08/16 Range/Units 08:45 08:45 08:45 WBC 6.8 (3.5-10.8) 10^3/ul RBC 5.81 H (4.0-5.4) 10^6/ul Hgb 16.7 H (12.0-16.0) g/dl Hct 54 H (35-47) % MCV 92 (80-97) fL MCH 29 (27-31) pg MCHC 31 (31-36) g/dl RDW 17 H (10.5-15) % Plt Count 224 (150-450) 10^3/ul MPV 8 (7.4-10.4) um3 Neut % (Auto) 81.5 (38-83) % Lymph % (Auto) 6.1 L (25-47) % [place] % (Auto) 10.8 H (1-9) % Eos % (Auto) 0.8 (0-6) % Baso % (Auto) 0.8 (0-2) % Absolute Neuts (auto) 5.5 (1.5-7.7) 10^3/ul Absolute Lymphs (auto) 0.4 L (1.0-4.8) 10^3/ul Absolute Monos (auto) 0.7 (0-0.8) 10^3/ul Absolute Eos (auto) 0.1 (0-0.6) 10^3/ul Absolute Basos (auto) 0.1 (0-0.2) 10^3/ul Absolute Nucleated RBC 0.02 10^3/ul Nucleated RBC % 0.3 INR (Anticoag Therapy) 1.12 H (0.89-1.11) APTT Pending Sodium 139 (133-145) mmol/L Potassium TNP Chloride 98 L (101-111) mmol/L Carbon Dioxide 34 H (22-32) mmol/L Anion Gap TNP BUN 20 (6-24) mg/dL Creatinine 1.03 H (0.51-0.95) mg/dL Est GFR ( Amer) 71.5 (>60) Est GFR (Non-Af Amer) 55.6 (>60) BUN/Creatinine Ratio 19.4 (8-20) Glucose 120 H (70-100) mg/dL Hemoglobin A1c (Less than 6.0) % Lactic Acid (0.5-2.0) mmol/L Calcium 9.4 (8.6-10.3) mg/dL Total Bilirubin 1.40 H (0.2-1.0) mg/dL AST TNP ALT 16 (7-52) U/L Alkaline Phosphatase 50 (34-104) U/L Troponin I 0.11 H* (<0.04) ng/mL B-Natriuretic Peptide ( - 100) pg/mL Total Protein 6.2 L (6.4-8.9) g/dL Albumin 3.4 (3.2-5.2) g/dL Globulin 2.8 (2-4) g/dL Albumin/Globulin Ratio 1.2 (1-3) TSH Pending 06/08/16 06/08/16 06/08/16 Range/Units 08:45 08:45 08:45 WBC (3.5-10.8) 10^3/ul RBC (4.0-5.4) 10^6/ul Hgb (12.0-16.0) g/dl Hct (35-47) % MCV (80-97) fL MCH (27-31) pg MCHC (31-36) g/dl RDW (10.5-15) % Plt Count (150-450) 10^3/ul MPV (7.4-10.4) um3 Neut % (Auto) (38-83) % Lymph % (Auto) (25-47) % [place] % (Auto) (1-9) % Eos % (Auto) (0-6) % Baso % (Auto) (0-2) % Absolute Neuts (auto) (1.5-7.7) 10^3/ul Absolute Lymphs (auto) (1.0-4.8) 10^3/ul Absolute Monos (auto) (0-0.8) 10^3/ul Absolute Eos (auto) (0-0.6) 10^3/ul Absolute Basos (auto) (0-0.2) 10^3/ul Absolute Nucleated RBC 10^3/ul Nucleated RBC % INR (Anticoag Therapy) (0.89-1.11) APTT Sodium (133-145) mmol/L Potassium Chloride (101-111) mmol/L Carbon Dioxide (22-32) mmol/L Anion Gap BUN (6-24) mg/dL Creatinine (0.51-0.95) mg/dL Est GFR ( Amer) (>60) Est GFR (Non-Af Amer) (>60) BUN/Creatinine Ratio (8-20) Glucose (70-100) mg/dL Hemoglobin A1c 7.3 H (Less than 6.0) % Lactic Acid 2.0 (0.5-2.0) mmol/L Calcium (8.6-10.3) mg/dL Total Bilirubin (0.2-1.0) mg/dL AST ALT (7-52) U/L Alkaline Phosphatase (34-104) U/L Troponin I (<0.04) ng/mL B-Natriuretic Peptide 885 H ( - 100) pg/mL Total Protein (6.4-8.9) g/dL Albumin (3.2-5.2) g/dL Globulin (2-4) g/dL Albumin/Globulin Ratio (1-3) TSH Assess/Plan/Problems-Billing Assessment: 55 yo F with poor medical care follow up presents with 2 weeks increasing LE edema and SOB found with RV pressure overload with stay complicated by hypercarbic respiratory failure - Patient Problems (1) Hypercapnic respiratory failure Comment: Suspect poor respiratory reserve COPD exacerbation IV steroids started 06/10/16, will change solu Medrol to Prednisone andtaper it down. BIPAP at night and with naps during the day Will need CPAP at home on discharge , overnight pulse px qualified pt for CPAP. CM to arrange it prior to d/c (2) COPD (chronic obstructive pulmonary disease) Comment: New dx - clinical dx. Will need PFTs as outpatient. appreciate Dr. Bal's consult. Started dulera and titropium IV steroids started 06/10, will slowly titrate down (3) Acute cor pulmonale Comment: Suspect acute cor pulm as etiology of RV failure , troponin elevated due to it. Aprreciated Dr. Ring's consult. IV lasix with weights improving daily. VBG with improved Ph, acidosis is resolved on 06/12/16. Elevated pCO2 may be at baseline. Note: pericardial effusion on CTA was small on Echo (4) Edema Comment: lower extremity in setting of RV failure/cor pulm lasix IV as above dopplers negative for DVT (5) Diabetes Comment: new dx. HbA1c 7.3% cont metformin 500 BID 06/09 Insulin lispro SS - increased to medium dose 06/11 DM education and nutrition ordered. (6) DVT prophylaxis Comment: HSQ Status and Disposition: Improving with diuresis, steroids, and CPAP. plan to d/c in aM with CPAP, 02 at 2 L.
[2016-06-13] MEDS ORDERED: Furosemide IV* 10 MG/ML 2 ML VIAL (20 MG) IV ONE (10:10)
--- NOTE | 2016-06-13 17:06 | PN ---
Progress Note - Progress Note Note: Pulm consult f/u note 06/13/16. Pt seen and examined at bed side. Pt reports improvement in breathing. She is more alert than before. Active Medications Generic Name Dose Route Start Last Admin Trade Name Freq PRN Reason Stop Dose Admin Acetaminophen 650 mg 06/08/16 11:04 06/10/16 17:15 Tylenol Tab* PO 650 mg Q4H PRN Administration FEVER/PAIN Albuterol/Ipratropium 1 neb 06/08/16 11:07 06/10/16 13:26 Duoneb Neb.Ingrid* INH 1 neb Q6H PRN Administration SOB/WHEEZING Dextrose 12.5 gm 06/09/16 09:45 D50w Syringe 50 Ml* IV PUSH .FOR FS < 60 - SS PRN FS < 60 Heparin Sodium (Porcine) 5,000 units 06/08/16 22:00 06/13/16 13:40 Heparin Vial(*) SUBCUT 5,000 units Q8HR [facility] Administration Insulin Human Lispro 0 units 06/11/16 07:47 06/13/16 16:56 Humalog* SUBCUT Not Given ACHS [facility] Protocol Metformin HCl 500 mg 06/09/16 17:00 06/13/16 08:19 Glucophage* PO 500 mg 0800,1700 [facility] Administration Mometasone Furoate/Formoterol Fumar 2 puff 06/10/16 21:00 06/13/16 09:24 Dulera 200/5 Mdi* INH 2 puff BID [facility] Administration Paroxetine HCl 20 mg 06/09/16 09:00 06/13/16 08:20 Paxil Tab* PO 20 mg DAILY [facility] Administration Prednisone 60 mg 06/14/16 09:00 Deltasone Tab* PO DAILY [facility] Tiotropium [place] 1 cap 06/10/16 09:00 06/13/16 09:24 Spiriva Cap.Inh* INH 1 cap DAILY [facility] Administration Vital Signs Temp Pulse Resp BP Pulse Ox 97.9 F 89 17 118/69 91 06/13/16 15:18 06/13/16 15:18 06/13/16 15:18 06/13/16 15:18 06/13/16 15:18 Gen: Alert, oriented x 3 HEENT: Clear Oropharnyx Neck: - No jvp Respiratory: Symmetrical Chest Expansion and Respiratory Effort,scaterred rhonchi Cardiovascular: RRR, no significant murmur, 2+ edema Abdominal: obese, distended Extremities: No Clubbing, Cyanosis Skin: No Rash or Ulcers Neurological: Alert and Oriented x 3 Laboratory Results: Laboratory Results - last 24 hr 06/12/16 06/13/16 06/13/16 20:31 04:33 07:55 Sodium 138 Potassium 4.9 Chloride 89 L Carbon Dioxide 48 H* Anion Gap 1 L BUN 22 Creatinine 0.69 Est GFR ( Amer) 113.6 Est GFR (Non-Af Amer) 88.3 BUN/Creatinine Ratio 31.9 H Glucose 147 H POC Glucose (mg/dL) 138 H 124 H Calcium 9.5 06/13/16 06/13/16 11:41 16:37 Sodium Potassium Chloride Carbon Dioxide Anion Gap BUN Creatinine Est GFR ( Amer) Est GFR (Non-Af Amer) BUN/Creatinine Ratio Glucose POC Glucose (mg/dL) 224 H 88 Calcium ABG 06/09/2016: pH 7.24, PCO2 104, P02 44 EKG: sinus tachycardia, PAC's, low limb lead and precordial voltage CT chest as described above in HPI Impression/Recommendations: 55 year old obese female with a history of tobacco use with mixed hypercapnic/ hypoxemic respiratory failure, acute on chronic hypercapnia likely secondary to volume overload from RV failure, underlying COPD, possible EREN and group II pulmonary HTN and cor pulmonale. Pt with good clinical improvement - Continue IV diuretics as tolerated - Continue BiPAP at night - Evaluation for sleep apnea/obesity hypoventilation syndrome as out pt - Will need PFTs as out pt - c/w bronchodilators - Titrate FiO2 as tolerated
[2016-06-14] MEDS: Heparin VIAL(*) 5000 UNITS/ML VIAL (FIVE THOUSAND) SUBCUT SCH ×4 (06:12→21:31)
[2016-06-14] MEDS: Insulin LISPRO* 1 UNITS UNIT SUBCUT SCH ×4 (08:47→20:38)
[2016-06-14] MEDS: predniSONE TAB* 20 MG PO SCH (08:55)
[2016-06-14] MEDS: PARoxetine HCL TAB* 20 MG PO SCH (08:55)
[2016-06-14] MEDS: metFORMIN* 500 MG TAB PO SCH ×2 (08:55→17:12)
[2016-06-14] MEDS: Mometasone/Formoter 200/5 MDI INH SCH ×2 (10:30→20:39)
[2016-06-14] MEDS: Tiotropium CAP.INH* CAP.INH/18 MCG INH SCH (10:30)
[2016-06-14] MEDS ORDERED: Furosemide IV* 10 MG/ML 10 ML VIAL (100 MG) IV ONE (14:57)
--- NOTE | 2016-06-14 14:58 | PN ---
Subjective Date of Service: 06/14/16 Interval History: pt feels well. Still cont leg edema. Objective Active Medications: Acetaminophen (Tylenol Tab*) 650 mg PO Q4H PRN PRN Reason: FEVER/PAIN Last Admin: 06/10/16 17:15 Dose: 650 mg Albuterol/Ipratropium (Duoneb Neb.Ingrid*) 1 neb INH Q6H PRN PRN Reason: SOB/WHEEZING Last Admin: 06/10/16 13:26 Dose: 1 neb Dextrose (D50w Syringe 50 Ml*) 12.5 gm IV PUSH .FOR FS < 60 - SS PRN PRN Reason: FS < 60 Heparin Sodium (Porcine) (Heparin Vial(*)) 5,000 units SUBCUT Q8HR [facility] Last Admin: 06/14/16 14:34 Dose: Not Given Insulin Human Lispro (Humalog*) 0 units SUBCUT ACHS [facility] PRN Reason: Protocol Last Admin: 06/14/16 13:50 Dose: Not Given Metformin HCl (Glucophage*) 500 mg PO 0800,1700 [facility] Last Admin: 06/14/16 08:55 Dose: 500 mg Mometasone Furoate/Formoterol Fumar (Dulera 200/5 Mdi*) 2 puff INH BID [facility] Last Admin: 06/14/16 10:30 Dose: 2 puff Paroxetine HCl (Paxil Tab*) 20 mg PO DAILY [facility] Last Admin: 06/14/16 08:55 Dose: 20 mg Prednisone (Deltasone Tab*) 60 mg PO DAILY [facility] Last Admin: 06/14/16 08:55 Dose: 60 mg Tiotropium [place] (Spiriva Cap.Inh*) 1 cap INH DAILY [facility] Last Admin: 06/14/16 10:30 Dose: 1 cap Vital Signs 06/13/16 06/13/16 06/13/16 15:18 19:46 20:00 Temperature 97.9 F 98.4 F Pulse Rate 89 83 Respiratory 17 16 17 Rate Blood Pressure 118/69 129/75 (mmHg) O2 Sat by Pulse 91 95 Oximetry 06/13/16 06/14/16 06/14/16 20:06 00:13 03:58 Temperature 97.8 F 98.2 F Pulse Rate 80 81 77 Respiratory 20 20 Rate Blood Pressure 122/80 134/88 (mmHg) O2 Sat by Pulse 92 96 93 Oximetry 06/14/16 06/14/16 06/14/16 07:24 07:59 08:02 Temperature 98.1 F 97.8 F Pulse Rate 77 67 Respiratory 16 20 16 Rate Blood Pressure 124/85 140/90 (mmHg) O2 Sat by Pulse 98 98 Oximetry 06/14/16 06/14/16 06/14/16 09:10 09:12 09:20 Temperature Pulse Rate Respiratory Rate Blood Pressure (mmHg) O2 Sat by Pulse 89 85 96 Oximetry 06/14/16 06/14/16 09:36 10:33 Temperature 98.4 F Pulse Rate 84 68 Respiratory 20 18 Rate Blood Pressure 126/80 (mmHg) O2 Sat by Pulse 96 95 Oximetry Oxygen Devices in Use Now: Nasal Cannula - at 2 l Appearance: 55 yo F in nAd, aAOx3 Eyes: No Scleral Icterus, PERRLA Ears/Nose/Mouth/Throat: NL Teeth, Lips, Gums, Mucous Membranes Moist Neck: NL Appearance and Movements; NL JVP, Trachea Midline Respiratory: Symmetrical Chest Expansion and Respiratory Effort, - - mild b/l mid lung wheezes Cardiovascular: NL Sounds; No Murmurs; No JVD, RRR Abdominal: NL Sounds; No Tenderness; No Distention, No Hepatosplenomegaly Lymphatic: No Cervical Adenopathy Extremities: No Clubbing, Cyanosis, - - +1 b/l pitting pedal edema Skin: No Rash or Ulcers, No Nodules or Sclerosis Neurological: Alert and Oriented x 3, NL Muscle Strength and Tone Result Diagrams: 06/10/16 05:35 06/13/16 04:33 Additional Lab and Data: Lab Results 06/08/16 06/08/16 06/08/16 Range/Units 08:45 08:45 08:45 WBC 6.8 (3.5-10.8) 10^3/ul RBC 5.81 H (4.0-5.4) 10^6/ul Hgb 16.7 H (12.0-16.0) g/dl Hct 54 H (35-47) % MCV 92 (80-97) fL MCH 29 (27-31) pg MCHC 31 (31-36) g/dl RDW 17 H (10.5-15) % Plt Count 224 (150-450) 10^3/ul MPV 8 (7.4-10.4) um3 Neut % (Auto) 81.5 (38-83) % Lymph % (Auto) 6.1 L (25-47) % [place] % (Auto) 10.8 H (1-9) % Eos % (Auto) 0.8 (0-6) % Baso % (Auto) 0.8 (0-2) % Absolute Neuts (auto) 5.5 (1.5-7.7) 10^3/ul Absolute Lymphs (auto) 0.4 L (1.0-4.8) 10^3/ul Absolute Monos (auto) 0.7 (0-0.8) 10^3/ul Absolute Eos (auto) 0.1 (0-0.6) 10^3/ul Absolute Basos (auto) 0.1 (0-0.2) 10^3/ul Absolute Nucleated RBC 0.02 10^3/ul Nucleated RBC % 0.3 INR (Anticoag Therapy) 1.12 H (0.89-1.11) APTT Pending Sodium 139 (133-145) mmol/L Potassium TNP Chloride 98 L (101-111) mmol/L Carbon Dioxide 34 H (22-32) mmol/L Anion Gap TNP BUN 20 (6-24) mg/dL Creatinine 1.03 H (0.51-0.95) mg/dL Est GFR ( Amer) 71.5 (>60) Est GFR (Non-Af Amer) 55.6 (>60) BUN/Creatinine Ratio 19.4 (8-20) Glucose 120 H (70-100) mg/dL Hemoglobin A1c (Less than 6.0) % Lactic Acid (0.5-2.0) mmol/L Calcium 9.4 (8.6-10.3) mg/dL Total Bilirubin 1.40 H (0.2-1.0) mg/dL AST TNP ALT 16 (7-52) U/L Alkaline Phosphatase 50 (34-104) U/L Troponin I 0.11 H* (<0.04) ng/mL B-Natriuretic Peptide ( - 100) pg/mL Total Protein 6.2 L (6.4-8.9) g/dL Albumin 3.4 (3.2-5.2) g/dL Globulin 2.8 (2-4) g/dL Albumin/Globulin Ratio 1.2 (1-3) TSH Pending 06/08/16 06/08/16 06/08/16 Range/Units 08:45 08:45 08:45 WBC (3.5-10.8) 10^3/ul RBC (4.0-5.4) 10^6/ul Hgb (12.0-16.0) g/dl Hct (35-47) % MCV (80-97) fL MCH (27-31) pg MCHC (31-36) g/dl RDW (10.5-15) % Plt Count (150-450) 10^3/ul MPV (7.4-10.4) um3 Neut % (Auto) (38-83) % Lymph % (Auto) (25-47) % [place] % (Auto) (1-9) % Eos % (Auto) (0-6) % Baso % (Auto) (0-2) % Absolute Neuts (auto) (1.5-7.7) 10^3/ul Absolute Lymphs (auto) (1.0-4.8) 10^3/ul Absolute Monos (auto) (0-0.8) 10^3/ul Absolute Eos (auto) (0-0.6) 10^3/ul Absolute Basos (auto) (0-0.2) 10^3/ul Absolute Nucleated RBC 10^3/ul Nucleated RBC % INR (Anticoag Therapy) (0.89-1.11) APTT Sodium (133-145) mmol/L Potassium Chloride (101-111) mmol/L Carbon Dioxide (22-32) mmol/L Anion Gap BUN (6-24) mg/dL Creatinine (0.51-0.95) mg/dL Est GFR ( Amer) (>60) Est GFR (Non-Af Amer) (>60) BUN/Creatinine Ratio (8-20) Glucose (70-100) mg/dL Hemoglobin A1c 7.3 H (Less than 6.0) % Lactic Acid 2.0 (0.5-2.0) mmol/L Calcium (8.6-10.3) mg/dL Total Bilirubin (0.2-1.0) mg/dL AST ALT (7-52) U/L Alkaline Phosphatase (34-104) U/L Troponin I (<0.04) ng/mL B-Natriuretic Peptide 885 H ( - 100) pg/mL Total Protein (6.4-8.9) g/dL Albumin (3.2-5.2) g/dL Globulin (2-4) g/dL Albumin/Globulin Ratio (1-3) TSH Assess/Plan/Problems-Billing Assessment: 55 yo F with poor medical care follow up presents with 2 weeks increasing LE edema and SOB found with RV pressure overload with stay complicated by hypercarpnic respiratory failure - Patient Problems (1) Hypercapnic respiratory failure Comment: Suspect poor respiratory reserve COPD exacerbation cont PO Prednisone BIPAP at night and with naps during the day Will need CPAP at home on discharge , overnight pulse ox done, but as per d/w pulmonology , pt needs outpatient eval to qualify for CPAP (2) COPD (chronic obstructive pulmonary disease) Comment: New dx - clinical dx. Will need PFTs as outpatient. appreciate Dr. Bal's consult. Started dulera and titropium cont Prednisone (3) Acute cor pulmonale Comment: Suspect acute cor pulm as etiology of RV failure , troponin elevated due to it. Aprreciated Dr. Ring's consult. IV lasix with weights improving daily. VBG with improved Ph, acidosis is resolved on 06/12/16. Elevated pCO2 may be at baseline. Note: pericardial effusion on CTA (moderate) was small on Echo (4) Edema Comment: lower extremity in setting of RV failure/cor pulm lasix IV as above dopplers negative for DVT (5) Diabetes Comment: new dx. HbA1c 7.3% cont metformin 500 BID 06/09 Insulin lispro SS - increased to medium dose 06/11 DM education and nutrition done (6) DVT prophylaxis Comment: HSQ Status and Disposition: Pt is medically stable for discharge, but needs 02 at home, has high copay. CM is in the process of arranging home 02.
--- NOTE | 2016-06-14 16:05 | CONSULT ---
Subjective Reason for Visit: SOB, cough, LE edema Admission Date: 06/08/16 Glucose Level On Admission: Hgb A1C 7.3% History Of Present Illness: Ms. Harris is a 55 year old female who presented to the Emergency Department on 06/08/16 with shortness of breath, lower extremity edema, and cough. She had been experiencing shortness of breath and lower extremity edema for several weeks leading up to her visit to the emergency room. She was admitted and treated for respiratory failure, acute cor pulmonale, and COPD. While hospitalized, she was diagnosed with type II diabetes with a Hgb A1C of 7.3%. She denies polydipsia, polyuria, and polyphagia. Denies any prior history of elevated blood glucose, but does state that she has not been seen by her primary care provider in quite a while. She was started on Metformin and insulin. Patient History Surgical History: Yes Surgery Procedure, Year, and Place: bilat cataract - lens implant Past Family History: Denies any family history of diabetes Lives With: Family Preferred/Primary Language: Portuguese Review Of Systems - Review of Systems Constant: No Weight Loss - reports 40 lb weight loss with diuresis since admission Neurological: No Numbness/Tingling, No Sensory Loss, No Pain, No Parasthesias Over Peripheral Extremities, - Skin: No Open Wounds, - Endocrine: No Polyuria, No Polyphagia, No Polydipsia Objective Allergies Allergy/AdvReac Type Severity Reaction Status Date / Time Theophylline Allergy Swelling Verified 10/10/15 18:45 Of Face,Lips,& Throat Thimerosal Allergy Swelling Verified 10/10/15 18:45 Of Face,Lips,& Throat Home Medications Medication Instructions Recorded Confirmed Type PARoxetine HCL TAB* [Paxil TAB*] 20 mg PO DAILY 06/08/16 06/08/16 History Hospital Medications: Current Medications Acetaminophen (Tylenol Tab*) 650 mg PO Q4H PRN PRN Reason: FEVER/PAIN Last Admin: 06/10/16 17:15 Dose: 650 mg Albuterol/Ipratropium (Duoneb Neb.Ingrid*) 1 neb INH Q6H PRN PRN Reason: SOB/WHEEZING Last Admin: 06/10/16 13:26 Dose: 1 neb Dextrose (D50w Syringe 50 Ml*) 12.5 gm IV PUSH .FOR FS < 60 - SS PRN PRN Reason: FS < 60 Furosemide (Lasix Tab*) 40 mg PO DAILY [facility] Heparin Sodium (Porcine) (Heparin Vial(*)) 5,000 units SUBCUT Q8HR [facility] Last Admin: 06/14/16 15:28 Dose: 5,000 units Insulin Human Lispro (Humalog*) 0 units SUBCUT ACHS [facility] PRN Reason: Protocol Last Admin: 06/14/16 13:50 Dose: Not Given Metformin HCl (Glucophage*) 500 mg PO 0800,1700 [facility] Last Admin: 06/14/16 08:55 Dose: 500 mg Mometasone Furoate/Formoterol Fumar (Dulera 200/5 Mdi*) 2 puff INH BID [facility] Last Admin: 06/14/16 10:30 Dose: 2 puff Paroxetine HCl (Paxil Tab*) 20 mg PO DAILY [facility] Last Admin: 06/14/16 08:55 Dose: 20 mg Prednisone (Deltasone Tab*) 60 mg PO DAILY [facility] Last Admin: 06/14/16 08:55 Dose: 60 mg Tiotropium [place] (Spiriva Cap.Inh*) 1 cap INH DAILY [facility] Last Admin: 06/14/16 10:30 Dose: 1 cap Lab Data: ABG pH 7.27 (7.35-7.45) L 06/10/16 09:05 ABG HCO3 36.4 mmol/L (19-31) H 06/10/16 09:05 VBG pH 7.35 (7.33-7.43) 06/12/16 08:41 Sodium 138 mmol/L (133-145) 06/13/16 04:33 Potassium 4.9 mmol/L (3.5-5.0) 06/13/16 04:33 BUN 22 mg/dL (6-24) 06/13/16 04:33 Creatinine 0.69 mg/dL (0.51-0.95) 06/13/16 04:33 Hemoglobin A1c 7.3 % (Less than 6.0) H 06/08/16 08:45 Calcium 9.5 mg/dL (8.6-10.3) 06/13/16 04:33 AST 22 U/L (13-39) 06/08/16 12:19 ALT 16 U/L (7-52) 06/08/16 08:45 Cholesterol 103 mg/dL 06/09/16 04:49 Vital Signs: Vital Signs 06/14/16 06/14/16 06/14/16 08:02 09:10 09:12 Temperature 36.6 C Pulse Rate 67 Respiratory 16 Rate Blood Pressure 140/90 (mmHg) O2 Sat by Pulse 98 89 85 Oximetry 06/14/16 06/14/16 06/14/16 09:20 09:36 10:33 Temperature 36.9 C Pulse Rate 84 68 Respiratory 20 18 Rate Blood Pressure 126/80 (mmHg) O2 Sat by Pulse 96 96 95 Oximetry Height: 5 ft 7 in Weight: 104.598 kg Body Mass Index (BMI): 36.1 Physical Exam General Appearance: Positive: Alert, Oriented x3, Well Developed, Obese, Comfortable, No Distress, Pleasant, Lying In Bed Abdomin: Positive: Soft - bruising at injection sites, Obese Skin: Insulin Injection Sites - bruising at injection sites Plan Of Care Patient's Next Step: Will be discharged on Metformin. Dispensed glucometer and instructed the patient on use with return demonstration given. She will monitor her fasting blood glucose daily. Post prandial blood glucose 2-3 times a week. We discussed hyper/hypoglycemia signs and symptoms in detail. She was encouraged to follow up at [facility] for further diabetes education and nutritional guidance upon discharge. Next Visit: [facility] on d/c Referral To: [facility] For Further OutPT Diabetic Training Diagnosis: Type II diabetes Education Prior Diabetic Education: No Education Provided: Blood Glucose Monitoring, When To Seek Medical Attention Handouts Provided: hypo/hypergylcemia, 9" plate, living with diabetes Goals Goals: According to the [place] [employer], the following are your goals for Hemaglobin A1C, Blood Glucose, Cholesterol and Blood Pressure. Blood Glucose * Fasting Blood Glucose: 80-130 mg/dl * 2 Hour Post Prandial Glucose <180 mg/dl
[2016-06-15] MEDS: Heparin VIAL(*) 5000 UNITS/ML VIAL (FIVE THOUSAND) SUBCUT SCH (05:24)
[2016-06-15 06:51] LABS: BUN/Creatinine Ratio 25.4 (8-20); Calcium 9.3 mg/dL (8.6-10.3); EGFR African American 109.9 (>60); EGFR Non-African American 85.5 (>60); Potassium 4.2 mmol/L (3.5-5.0)
[2016-06-15 07:56] VITALS: BP 137/88
[2016-06-15] MEDS: Insulin LISPRO* 1 UNITS UNIT SUBCUT SCH (07:59)
[2016-06-15] MEDS: metFORMIN* 500 MG TAB PO SCH (08:38)
[2016-06-15] MEDS: predniSONE TAB* 20 MG PO SCH (08:38)
[2016-06-15] MEDS: PARoxetine HCL TAB* 20 MG PO SCH (08:38)
[2016-06-15] MEDS ORDERED: Furosemide TAB* 40 MG PO SCH (09:00)
[2016-06-15] MEDS: Tiotropium CAP.INH* CAP.INH/18 MCG INH SCH (09:16)
[2016-06-15] MEDS: Mometasone/Formoter 200/5 MDI INH SCH (09:16)
--- NOTE | 2016-06-15 23:23 | DS ---
DISCHARGE SUMMARY: DATE OF ADMISSION: 06/08/16 DATE OF DISCHARGE: 06/15/16 PRIMARY CARE PROVIDER: Dr. Borrero. ASSISTED LIVING HOME DIRECTOR: Dr. Bal. DISCHARGE DIAGNOSES: 1. Acute hypoxic and hypercapnic respiratory failure with respiratory acidosis requiring BIPAP in the ICU due to acute cor pulmonale. 2. Chronic obstructive pulmonary disease exacerbation. 3. Most likely obstructive sleep apnea. SECONDARY DIAGNOSES: 1. Obesity. 2. History of hospitalization for pneumonia and possibility of chronic obstructive pulmonary disease versus bronchospasm in 2014. MEDICATIONS AT DISCHARGE: Include: 1. The patient is instructed to use oxygen continuously at 2 L and AT 4 L at night. 2. DuoNeb nebulizer treatments every 6 hours p.r.n. wheezing. 3. Furosemide 60 mg daily. 4. Dulera 2 puffs inhalation b.i.d. 5. Paxil 20 mg daily. 6. Spiriva 1 inhalation daily. 7. Glucophage 500 mg daily. 8. Prednisone taper starting at 60 mg taper over 12 days. CONSULTATIONS DURING THE HOSPITAL STAY: Included: 1. Dr. Bal from Pulmonology. 2. Dr. Ring from Cardiology. LABORATORY DATA AND STUDIES PERFORMED DURING THE HOSPITAL STAY: Included: On 06/15/16, sodium of 141, potassium 4.2, chloride 90, carbon dioxide 46, BUN 18, creatinine 0.71. CBC obtained on 06/10/16 shows white blood cell count of 6.2, hemoglobin of 15.5 , hematocrit of 50, and platelets of 169. Most recent VBG obtained on 06/12/16 showed pH of 7.35, pCO2 of 98, pO2 of 40, bicarb of 40.9. The patient's overnight pulse oximetry monitoring with oxygen continuously at 2 L showed 02 saturation of below 89% at 17.6% of the time. Venous Doppler studies of bilateral lower extremities showed no DVT bilaterally. CT angiogram of the chest obtained on 06/08/16, impression: "Moderate pericardial effusion. Enlargement of the pulmonary artery suggestive of pulmonary arterial hypertension. No pulmonary arterial filling defect to suggest pulmonary embolism. Ascites." Transesophageal echocardiogram obtained on 06/08/16, impression: "Normal left ventricular chamber size with mild concentric LVH. EF of 50% to 55%. There was septal flattening of the intraventricular septum throughout diastole and systole consistent with RV pressure overload. The right ventricle is moderately to severely dilated with right ventricular global systolic function moderately reduced. The right atrium is moderately dilated. There was no obvious interatrial shunt with color flow Doppler. There is evidence of moderate pulmonary hypertension. There is small posterior loculated pericardial effusion. The main pulmonary artery is not well visualized. The inferior vena cava is not well visualized. HOSPITALIZATION COURSE: Anahi Harris is a 55-year-old female who has history of obesity and possible COPD as well as tobacco use, who rarely sees a physician and she does not actively follow up with Dr. Borrero, who is her primary care physician and who presented to the hospital on 06/08/16 with complaints of leg edema, dyspnea, and cough. She was noted to be in acute hypercapnic and hypoxemic respiratory failure. Her ABG on 06/09/16 showed pH of 7.24, pCO2 of 104, pO2 of 44, and bicarb of 33. She was placed on BIPAP and treated in the intensive care unit. She did well on BIPAP to the point that she was able to be weaned to 2 L of nasal cannula during the day time and CPAP at night. She was also treated for COPD exacerbation with nebulizers, inhalers and Solu-Medrol. Due to patient's troponin initially being elevated at 0.1, the patient was seen by Dr. Ring from Cardiology in consultation. Dr. Ring diagnosed acute cor pulmonale and recommended to treat the reason the patient has right ventricular pressure overload. Dr. Bal was consulted from Pulmonology and recommended treatment for COPD, obstructive sleep apnea, and hypoxemia. Dr. Bal recommended also CPAP at night. Despite overnight pulse oximetry qualifying the patient for CPAP, we were unable to be able to get it as outpatient without a prior dedicated outpatient sleep study. At this point, the patient is going to be discharged on 2 L of oxygen continuously and 4 L at night. She is recommended to call Dr. Bal and schedule an appointment for obstructive sleep apnea study to be obtained to qualify for CPAP. The patient also is set up with visiting nurse association. Please also note that the patient was noted to be a new diabetic. Her hemoglobin A1c was 7.3. What most likely increased her hyperglycemia was the steroid use. She was started on Glucophage and she is going to be discharged on Glucophage at 500 mg daily. She underwent diabetic nutrition evaluation and also a family living educator came over and saw the patient in evaluation. She was taught how to recognize symptoms of hypoglycemia as well as given a glucometer with strips to measure her glucose levels, which was also taught how to do. At discharge, the patient was also asked to check her weight on a daily basis and call her primary care provider if her weight increases over 3 pounds. Her weight at discharge was 221 pounds. At this point, the etiology of cor pulmonale is most likely obesity hypoventilation syndrome and combination of COPD exacerbation in this patient. She was strongly recommended not to smoke at discharge. Followup appointments recommended with Dr. Borrero in 4 to 7 days, Dr. Bal in 1 to 2 weeks. PHYSICAL EXAMINATION: At the time of discharge, blood pressure of 137/88, heart rate of 82 and regular, respiratory rate 16, oxygen saturation 95% on 2 L of oxygen nasal cannula, temperature of 97.5. General: The patient is a pleasant 55-year- old female with BMI of 36. The patient is in no acute distress. Alert, awake, and oriented x3. HEENT: Head atraumatic and normocephalic. Eyes: Pupils equal and reactive to light and accommodation. Oropharynx clear. Mucosa moist. Neck: Supple. No JVD, no bruits bilaterally. Cardiovascular: Regular rate and rhythm. No murmur. Respiratory: Scant wheezes scattered over the bilateral mid lungs, otherwise clear. Abdomen: Soft , nontender. Bowel sounds present in all 4 quadrants. Extremities: There is + 1 pitting pedal edema. Pulses are +2 bilaterally. No clubbing or cyanosis. Neuro Evaluation: Speech clear. Cranial nerves II through XII grossly intact. Motor strength is 5/5 bilaterally. Please note that this is a short summary of the patient's hospital stay, please refer to further medical records for details. TIME SPENT: Approximately 45 minutes was spent on the patient's discharge. CC: Dr. Borrero; Dr. Bal; Dr. Ring* [id number]/[facility] #: [id number] [facility]ITAL[facility]
== END 2016-06-15 13:45 | disposition home or self-care (01) | DRG 207 ==
LOC: ED 08:11 → MEDTELE 11:04 → ICU 06-09 11:00 → MEDTELE 06-11 12:14 → MED 06-14 19:03
PROVIDERS: ADMIT Internal Medicine; ATTEND Internal Medicine
PROC: 3E0234Z Introduction of Serum, Toxoid and Vaccine into Muscle, Percutaneous Approach (ICD-10-PCS; 2016-06-09)
PROC: 5A09457 Assistance with Respiratory Ventilation, 24-96 Consecutive Hours, Continuous Positive Airway Pressure (ICD-10-PCS; principal; 2016-06-10)
PROC: 5A09357 Assistance with Respiratory Ventilation, Less than 24 Consecutive Hours, Continuous Positive Airway Pressure (ICD-10-PCS; 2016-06-10)
DX: I27.81 Cor pulmonale (chronic) (principal); J96.01 Acute respiratory failure with hypoxia; J96.02 Acute respiratory failure with hypercapnia; E87.2 Acidosis; I31.3 Pericardial effusion (noninflammatory); R18.8 Other ascites; E11.65 Type 2 diabetes mellitus with hyperglycemia; J44.1 Chronic obstructive pulmonary disease with (acute) exacerbation; E66.2 Morbid (severe) obesity with alveolar hypoventilation; Z87.01 Personal history of pneumonia (recurrent); I27.2 Other secondary pulmonary hypertension; T38.0X5A Adverse effect of glucocorticoids and synthetic analogues, initial encounter; F17.210 Nicotine dependence, cigarettes, uncomplicated; Z88.8 Allergy status to other drugs, medicaments and biological substances; Z98.42 Cataract extraction status, left eye; Z98.41 Cataract extraction status, right eye; Z96.1 Presence of intraocular lens; Z80.0 Family history of malignant neoplasm of digestive organs; F32.9 Major depressive disorder, single episode, unspecified; I50.9 Heart failure, unspecified; Z23 Encounter for immunization; I07.1 Rheumatic tricuspid insufficiency; Z68.36 Body mass index [BMI] 36.0-36.9, adult
CPT/HCPCS: 36415; 36600; 71020; 71275; 80048; 80053; 82465; 82803; 83036; 83605; 83880; 84443; 84484; 85025; 85027; 85610; 85730; 87040; 90732; 93306; 93970; 94640; 94660; 94760; 94762; 99252; 99406; A9270-GY; J1644; J1940; J2930; J7512; Q9967

== ENCOUNTER 2017-07-13 09:51 | Day surgery (SDC) | payer BC ==
[~2017-07-13 09:51] MED LIST: Buffered Lidocaine 0.9% SYRIN* 5 ML/SYR SYRINGE INTRADERM ONE
[2017-07-13] MEDS ORDERED: Lidocaine 1% INJ* 10 MG/ML 30 ML SDV ONE (11:20)
[2017-07-13] MEDS ORDERED: Bupivacaine 0.5% SDV PF* 10-30ML VIAL ONE (11:20)
[2017-07-13] MEDS ORDERED: Naloxone* 0.4 MG/ML 1 ML VIAL IV PRN (11:31)
[2017-07-13] MEDS ORDERED: Lidocaine 2% PF * 5 ML VIAL ONE (11:44)
[2017-07-13] MEDS ORDERED: Propofol* 10 MG/ML 20 ML BTL IV PUSH ONE (11:44)
[2017-07-13 13:02] VITALS: BP 118/89
--- NOTE | 2017-07-13 13:19 | RAD ---
HISTORY: Power port placement COMPARISONS: June 08, 2016 VIEWS: 1: frontal portable view of the chest at 12:50 PM FINDINGS: LINES AND TUBES: A left-sided chest port is noted from subclavian approach with the tip overlying the superior vena cava. CARDIOMEDIASTINAL SILHOUETTE: The cardiomediastinal silhouette is normal for portable technique. PLEURA: The costophrenic angles are sharp. No pleural abnormalities are noted. There is no appreciable pneumothorax. LUNG PARENCHYMA: The lungs are clear. ABDOMEN: The upper abdomen is clear. There is no subphrenic gas. BONES AND SOFT TISSUES: No bone or soft tissue abnormalities are noted. IMPRESSION: LINES AND TUBES ABOVE. NO ACTIVE CARDIOPULMONARY DISEASE.
--- NOTE | 2017-07-13 14:01 | RAD ---
INDICATION: Power port placement COMPARISONS: None relevant TECHNIQUE: Fluoroscopy was provided for a vascular access procedure. Total fluoroscopy time is: 48.2 seconds FINDINGS: Spot images demonstrate a chest port from a left sided approach with the tip overlying the cavoatrial junction. IMPRESSION: FLUOROSCOPY WAS PROVIDED FOR A VASCULAR ACCESS PROCEDURE CPT II Codes: 6045F
--- NOTE | 2017-07-14 14:06 | OP ---
CC: [facility]. OPERATIVE SUMMARY: DATE OF OPERATION: 07/13/17 DATE OF : 60 SURGEON: Namrata Stevenson MD CARDIOGRAPHER: There was no assistance for this case. PRE-OP DIAGNOSIS: Right breast cancer. POST-OP DIAGNOSIS: Right breast cancer. OPERATIVE PROCEDURE: Power-port placement. INDICATIONS: Ms. Harris is a 56-year-old woman recently diagnosed with right breast cancer. She was due to have neoadjuvant chemotherapy, she was therefore prepared for surgery and brought to the o perating room. DESCRIPTION OF PROCEDURE: She was placed on the OR table in a supine position and given IV sedation. The left chest wall was prepped and draped in the usual sterile fashion and using a Seldinger techn ique, under fluoroscopic visualization, after infiltrating with local anesthetic, a wire was placed i n the left subclavian vein. A port pocket was then created by infiltrating the skin with local anesth etic making an incision and developing a pocket anteriorly using electrocautery. Once the pocket was of a size to accommodate the port, the catheter was tunneled from the port pocket to the wire exit s ite and then a dilator and introducer were placed over the wire. The wire and dilator were removed. The catheter was advanced through the introducer to an appropriate depth under fluoroscopic visualiz ation and then the introducer was pealed away. The catheter was drawn back to an appropriate depth. The catheter was then trimmed to an appropriate length and attached to the port. The port was inser adan in the pocket and secured to the chest wall with 2-0 Prolene stitches. Then closure was accompli shed with 3-0 Vicryl in the subcutaneous layer and the skin was closed with 4-0 Prolene in a subcutic ular fashion. The function of the port was checked and found to be adequate. Dry sterile dressings were applied. All sponge and instrument counts were correct. The patient tolerated the procedure wel l and was transferred to recovery in a stable condition. [id number]/[facility] #: [id number]
== END 2017-07-13 13:29 | disposition home or self-care (01) ==
LOC: OR 09:51
PROVIDERS: ATTEND Surgery
DX: C50.911 Malignant neoplasm of unspecified site of right female breast (principal); E11.9 Type 2 diabetes mellitus without complications; Z79.84 Long term (current) use of oral hypoglycemic drugs; F17.210 Nicotine dependence, cigarettes, uncomplicated; J44.9 Chronic obstructive pulmonary disease, unspecified; Z68.36 Body mass index [BMI] 36.0-36.9, adult; I50.810 Right heart failure, unspecified; I27.20 Pulmonary hypertension, unspecified; G47.33 Obstructive sleep apnea (adult) (pediatric)
CPT/HCPCS: 71045; 76000; C1788; J1642; J2704

== ENCOUNTER 2017-10-12 12:00 | Inpatient (IN) | payer BC ==
--- NOTE | 2017-10-06 00:16 | HP ---
CC: Dr. Borrero; Dr. Stacy; Dr. Luna; Dr. Eren Ring * ADMISSION HISTORY AND PHYSICAL: DATE OF ADMISSION: 10/12/17 ATTENDING SURGEON: Namrata Stevenson MD * (VALERIE Israel, dictating). CHIEF COMPLAINT: Right breast cancer. HISTORY OF PRESENT ILLNESS: This is a 56-year-old female, who first noted a right breast lump in the early part of this year. She deferred further investigation for a few weeks, but then was seen by her primary care office and referred for a mammogram. The mammogram was done on 06/11/17 showing a ill- defined mass in the 9 o'clock position of the right breast measuring up to 8 cm in greatest dimension. This was confirmed by ultrasound, though the ultrasound measurements were somewhat less. She had had a prior mammogram one year earlier which apparently did not show any abnormalities. She was seen by Dr. Stevenson on 06/19/17, at which time exam confirmed the presence of an 8 x 8 x 6 cm right breast mass at the 9 o'clock position located approximately 11 cm from the nipple. There were no masses in the left breast and no palpable lymphadenopathy. A biopsy had already been performed on 06/14/17 revealing a triple negative carcinoma (see separate report). She was referred to and seen by Dr. Stacy on 07/02/17 for a consideration of neoadjuvant chemotherapy. She has received 4 cycles of TC regimen after placement of a left- sided PowerPort by Dr. Stevenson. A CT scan of the abdomen, pelvis, and chest revealed no evidence of metastatic disease. The patient did undergo genetic testing, which was apparently negative. Nonetheless, she has decided in favor of bilateral mastectomies. She was seen by Dr. Luna preoperatively for consideration of breast reconstruction, but has declined to pursue that option. She met again with Dr. Stevenson on 09/25/17, at which time Dr. Stevenson reviewed with her the indications for surgery, the risks, benefits, and alternatives. She understands the expected perioperative course and would like to proceed as scheduled with bilateral mastectomies with right breast sentinel lymph node biopsy. PAST MEDICAL HISTORY: Obesity, obstructive sleep apnea (not currently using CPAP), COPD, and active tobacco use. She was admitted in June of 2016 for shortness of breath with echocardiogram showing dilated right ventricular hypertrophy with moderately reduced right ventricular systolic function, but normal left ventricular systolic function. She did have a repeat echo in June of this year, which was essentially the same. She has an appointment scheduled with Dr. Ring, but not until after the surgery. We did request written clearance by him for the proposed surgery. She is also treated for type 2 diabetes and depression. PAST SURGICAL HISTORY: Previous surgeries include cleft palate surgery and placement of a PowerPort. CURRENT MEDICATIONS: 1. Furosemide 40 mg once daily. 2. Rosuvastatin 5 mg once daily. 3. Tudorza 400 mcg one puff b.i.d. 4. Symbicort one puff once daily. 5. Aspirin 81 mg once daily. 6. Paroxetine 20 mg once daily. 7. Metformin 500 mg once daily. 8. Oxygen 4 L at h.s. ALLERGIES: THEOPHYLLINE (confusion), THIMEROSAL (generalized erythema). FAMILY HISTORY: Per Dr. Stacy's record, father alive, age 85 with dementia; mother alive, age 84 with history of colon cancer. I did not inquire of family history regarding anesthesia problems, bleeding, or clotting disorders. SOCIAL HISTORY: The patient lives alone, but will be staying with her mother postoperatively. She also has a son, who lives nearby. 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 She is a current smoker of 6 cigarettes per day down from one pack per day for the past 20 to 30 years. She drinks 3 to 4 beers on an average per day. She denies other recreational drug use. REVIEW OF SYSTEMS: General: No recent constitutional symptoms or acute illnesses other than described above. She has actually had some weight gain of approximately 10 pounds since initiating chemotherapy. Eyes: No recent changes reported. Ears, Nose, Throat: No problems reported. Cardiovascular: No history of hypertension or chest pain. She does have right heart disease presumably secondary to both COPD and sleep apnea. She is followed by Dr. Ring. No recent problems with increased shortness of breath or chest pain. Respiratory: As above. No additions. GI: No problems reported. She did undergo Cologuard testing approximately one year ago, which she states was normal. : No problems reported. EXECUTIVE ADVISOR: As per the HPI, most recent pelvic exam and Pap smear approximately one and a half years ago reportedly normal. Endocrine: She is treated for type 2 diabetes. No history of thyroid dysfunction. Hematological/Oncological: No history of anemia or bleeding disorders. Breast cancer as noted above. Neuro/Psych: History of depression. PHYSICAL EXAMINATION GENERAL: Well-nourished, obese female, in no acute distress. VITAL SIGNS: Height 66 inches, weight 233 pounds, temperature 97.5, blood pressure 138/72, pulse 70s and regular, respirations 20. HEENT: Pupils equal, round, and reactive. EOMs intact. No conjunctival pallor. Oropharynx: Teeth in good repair. No intraoral lesions. NECK: No cervical or supraclavicular lymphadenopathy. No thyromegaly or masses. BREASTS: Not reexamined today (see above per HPI). LUNGS: Clear to auscultation. No rales or wheezes. She does have a left upper chest palpable port. HEART: Regular rate and rhythm. No murmur appreciated. ABDOMEN: Soft, nontender to palpation. No palpable masses or organomegaly. GENITALIA: Not done. RECTAL: Not done. BACK: No spinous process or CVA tenderness. EXTREMITIES: Trace edema bilaterally. NEUROLOGICAL: Grossly intact. SKIN: Warm and dry. No suspicious rashes or lesions noted. She has had hair loss from her recent chemotherapy. IMPRESSION: Right breast cancer. PLAN: Bilateral mastectomies with right breast sentinel lymph node biopsy. VALERIE ISRAEL [id number]/[facility] #: [id number] MTDD
[2017-10-25] MEDS ORDERED: Buffered Lidocaine 0.9% SYRIN* 5 ML/SYR SYRINGE INTRADERM ONE (15:25)
[2017-10-26] MEDS ORDERED: Famotidine IV* 10 MG/ML 2 ML (20 mg) IV ONE (06:00)
[2017-10-26] MEDS ORDERED: Levalbuterol 0.63MG/3ML NEB* UNIT OF USE INH ONE ×2 (06:00→06:52)
[2017-10-26] MEDS ORDERED: ceFAZolin 2 GM PREMIX (*) 2 GM/50 ML BAG IVPB ONE (06:52)
[2017-10-26] MEDS ORDERED: Heparin VIAL(*) 5000 UNITS/ML VIAL (FIVE THOUSAND) ONE (06:52)
[2017-10-26] MEDS ORDERED: Famotidine IV* 10 MG/ML 2 ML (20 mg) ONE (06:52)
[2017-10-26] MEDS ORDERED: Lidocaine 2.5%/Prilocain 2.5%* 5 GM TUBE ONE (06:52)
--- OUTSIDE RECORDS SUMMARY | 2017-10-26 06:53 | XMS REPORT ---
:1960 External Reference #:[id number] Author Organization [facility] Address [address] [place] [address] [place] [address] Phone [phone] Care Team Providers Name Role Phone Jona Borrero MD Primary Care Physician Unavailable Payers Type Date Identification Numbers Payment Provider Subscriber Commercial Policy Number: [id number] [employer] Anahi Harris PayID: [id number] [place] [id number] Problems Date Description Provider Status Onset: 07/25/2016 Pulmonary hypertension Eren Ring DO [facility] Active Onset: 07/28/2016 Acute respiratory failure Jaida Bal MD Active Onset: 07/28/2016 Chronic obstructive lung disease Jaida Bal MD Active Onset: 07/28/2016 Disturbance in sleep behavior Jaida Bal MD Active Family History Date Family Member(s) Problem(s) Comments Father Prostate Cance Mother Colon Cancer Siblings 5 Sister heart issues Others healthy Social History Type Date Description Comments Lives With Family 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 ETOH Use Currently consumes alcohol 2 beers most days Smoking Light tobacco smoker (10 or fewer cigarettes/day) Recreational Drug Use Denies Drug Use Smoking Patient is a current smoker, 2/day since 06/08/16 1 PPD x smokes every day 30 years Daily Caffeine Consumes on average 2 cups of decaff coffee per day Exercise Type/Frequency Walks 5 times a week with work Allergies, Adverse Reactions, Alerts Date Description Reaction Status Severity Comments 07/25/2016 Theophylline active hives 07/25/2016 Thimerosal active swelling Medications Medication Date Status Form Strength Qnty SIG Indications Ordering Provider Hydrocodone-Ac 10/05/ Active Tablets 5-325mg 20tabs 1 or 2 Namrata Chay etaminophen 2017 tablets by deyvi Stevenson MD 4-6 hours as needed for moderately severe pain Furosemide 03/06/ Active Tablets 40mg 90tabs 1 by mouth Eren Grier 2017 every day Jhonathan DO FACC Oxygen 01/05/ Active Misc 1units please use Jaida 2017 o2 at [place], 3l/min at MD night, Pls increase O2 to 3L/min at night Tudorza 07/27/ Active Aerosol 400mcg/Act 2 puff Unknown Pressair 2016 twice a day Metformin HCL / Active Tablets 500mg 1 by mouth Unknown 0000 once a day Paroxetine HCL / Active Tablets 20mg 1 by mouth Unknown 0000 every day Symbicort / Active Aerosol 160-4.5mcg 1 puff once Unknown 0000 /Act a day Aspirin Ec / Active Tablets DR 81mg 1 by mouth Unknown 0000 every day Rosuvastatin / Active Tablets 5mg Darlow, Calcium 0000 Jona Pino MD Atorvastatin 09/05/ Hx Tablets 40mg 90tabs 1 by mouth E78.5 Eren Grier Calcium 2016 every day DO DAVID RingC Furosemide / Hx Tablets 20mg 2 by mouth Unknown 0000 - every day 2016 Spiriva / Hx Capsules 18mcg 1 unit Unknown Handihaler 0000 - inhalation 07/27/ daily 2016 (patient not sure if this is correct) Vital Signs Date Vital Result Comment 10/15/2017 Height 66 inches 5'6" Weight 232.50 lb Heart Rate 90 /min BP Systolic Sitting 118 mmHg Rue large cuff BP Diastolic Sitting 78 mmHg Rue large cuff Respiratory Rate 12 /min O2 % BldC Oximetry 90 % BMI (Body Mass Index) 37.5 kg/m2 10/05/2017 Height 66 inches 5'6" Weight 233.00 lb Heart Rate 126 /min BP Systolic Sitting 138 mmHg BP Diastolic Sitting 72 mmHg Respiratory Rate 20 /min Body Temperature 97.5 F BMI (Body Mass Index) 37.6 kg/m2 09/25/2017 Heart Rate 84 /min BP Systolic 128 mmHg BP Diastolic 80 mmHg Respiratory Rate 18 /min Body Temperature 98.7 F 07/23/2017 Heart Rate 102 /min Respiratory Rate 20 /min Body Temperature 98.3 F 06/19/2017 Height 66 inches 5'6" Weight 220.00 lb Heart Rate 120 /min BP Systolic Sitting 140 mmHg BP Diastolic Sitting 82 mmHg Respiratory Rate 18 /min Body Temperature 98.1 F BMI (Body Mass Index) 35.5 kg/m2 03/06/2017 Height 65 inches 5'5" Weight 212.00 lb no shoes Heart Rate 74 /min BP Systolic Sitting 128 mmHg Lue large cuff BP Diastolic Sitting 82 mmHg Lue large cuff BP Systolic Standing 112 mmHg Lue large cuff BP Diastolic Standing 78 mmHg Lue large cuff Respiratory Rate 16 /min BMI (Body Mass Index) 35.3 kg/m2 Ejection Fraction 55-60% echo 08/02/16 09/05/2016 Height 65 inches 5'5" Weight 198.00 lb no shoes Heart Rate 76 /min BP Systolic Sitting 112 mmHg Lue lrg cuff BP Diastolic Sitting 74 mmHg Lue lrg cuff BP Systolic Standing 106 mmHg Lue lrg cuff BP Diastolic Standing 76 mmHg Lue lrg cuff Respiratory Rate 15 /min BMI (Body Mass Index) 32.9 kg/m2 Ejection Fraction 55-60% 08/02/2016-echo 07/28/2016 Height 65 inches 5'5" Weight 190.00 lb Heart Rate 89 /min BP Systolic Sitting 140 mmHg BP Diastolic Sitting 84 mmHg Respiratory Rate 14 /min O2 % BldC Oximetry 96 % BMI (Body Mass Index) 31.6 kg/m2 07/25/2016 Height 65 inches 5'5" Weight 190.00 lb Heart Rate 90 /min BP Systolic 136 mmHg Rue reg cuff BP Diastolic 80 mmHg Rue reg cuff BP Systolic Sitting 126 mmHg Lue reg cuff BP Diastolic Sitting 68 mmHg Lue reg cuff BP Systolic Standing 120 mmHg Lue reg cuff BP Diastolic Standing 66 mmHg Lue reg cuff Respiratory Rate 16 /min BMI (Body Mass Index) 31.6 kg/m2 Ejection Fraction 50-55% echo 06/08/16 Results Test Date Test Result H/L Range Note Laboratory test 07/13/2017 Point of Care Glucose 140 mg/dL High 70-100 1 finding Laboratory test 03/27/2017 B-Type Natriuretic 38 pg/mL 2 finding Peptide BNP Basic Metabolic Panel 03/27/2017 Sodium 145 mmol/L 133-145 Potassium 5.0 mmol/L 3.5-5.0 Chloride 103 mmol/L 101-111 Co2 Carbon Dioxide 34 mmol/L High 22-32 Anion Gap 8 mmol/L 2-11 Glucose 117 mg/dL High 70-100 Blood Urea Nitrogen 18 mg/dL 6-24 Creatinine 0.91 mg/dL 0.51-0.95 BUN/Creatinine Ratio 19.8 8-20 Calcium 9.6 mg/dL 8.6-10.3 Egfr Non- 63.9 >60 Egfr 82.2 >60 3 Basic Metabolic Panel 07/25/2016 Sodium 137 mmol/L 133-145 Potassium 4.3 mmol/L 3.5-5.0 Chloride 96 mmol/L Low 101-111 Co2 Carbon Dioxide 35 mmol/L High 22-32 Anion Gap 6 mmol/L 2-11 Glucose 123 mg/dL High 70-100 Blood Urea Nitrogen 19 mg/dL 6-24 Creatinine 0.82 mg/dL 0.51-0.95 BUN/Creatinine Ratio 23.2 High 8-20 Calcium 9.4 mg/dL 8.6-10.3 Egfr Non- 72.4 >60 Egfr 93.1 >60 4 Laboratory test finding 07/25/2016 Magnesium 2.1 mg/dL 1.9-2.7 Lipid Profile (Trig/Chol/HDL) 07/25/2016 Triglycerides 139 mg/dL 5 Cholesterol 234 mg/dL 6 HDL Cholesterol 66.8 mg/dL 7 LDL Cholesterol 139 mg/dL 8 Laboratory test finding 07/25/2016 B-Type Natriuretic Peptide BNP 99 pg/mL 9 1 Software Applications Developer: [id number] 2 >100 to <200 pg/mL: likely compensated congestive heart failure (CHF) 200 to 400 pg/mL: likely moderate CHF >400 pg/mL: likely moderate to severe CHF 3 Because ethnic data is not always readily available, this report includes an eGFR for both -Americans and non- Americans. The National Kidney Disease Education Program (NKDEP) does not endorse the use of the MDRD equation for patients that are not between the ages of 18 and 70, are , have extremes of body size, muscle mass, or nutritional status, or are non- or non-. According to the National Kidney Foundation, irrespective of diagnosis, the stage of the disease is based on the level of kidney function: Stage Description GFR(mL/min/1.73 m(2)) 1 Kidney damage with normal or decreased GFR 90 2 Kidney damage with mild decrease in GFR 60-89 3 Moderate decrease in GFR 30-59 4 Severe decrease in GFR 15-29 5 Kidney failure <15 (or dialysis) 4 Because ethnic data is not always readily available, this report includes an eGFR for both -Americans and non- Americans. The National Kidney Disease Education Program (NKDEP) does not endorse the use of the MDRD equation for patients that are not between the ages of 18 and 70, are , have extremes of body size, muscle mass, or nutritional status, or are non- or non-. According to the National Kidney Foundation, irrespective of diagnosis, the stage of the disease is based on the level of kidney function: Stage Description GFR(mL/min/1.73 m(2)) 1 Kidney damage with normal or decreased GFR 90 2 Kidney damage with mild decrease in GFR 60-89 3 Moderate decrease in GFR 30-59 4 Severe decrease in GFR 15-29 5 Kidney failure <15 (or dialysis) 5 Desirable <150 Borderline high 150-199 High 200-499 Very High >500 6 Desirable <200 Borderline high 200-239 High >239 7 Low <40 Desirable: 40-60 High: >60 8 Desirable: <100 mg/dL Near Optimal: 100-129 mg/dL Borderline High: 130-159 mg/dL High: 160-189 mg/dL Very High: >189 mg/dL 9 >100 to <200 pg/mL: likely compensated congestive heart failure (CHF) 200 to 400 pg/mL: likely moderate CHF >400 pg/mL: likely moderate to severe CHF Procedures Date CPT Code Description Status 07/13/2017 89033 Fluoroscopic Guidance For Cent Completed 07/13/2017 81578 Insertion Tunneled Cent Venous Cathr W Subcut Port 5 Completed Yrs Or Oldr 07/12/2017 66825 ECHO Transthorasic Realtime 2D W Doppler & Color Flow Completed Hosp 06/11/2017 Mammogram Completed 10/20/2016 71511 Polysomnography Sleep Staging 4+ Parameters W/Cpap Completed 08/02/2016 85997 ECHO Transthoracic, Real-Time 2D With Doppler And Color Completed Flow 07/25/2016 54915 EKG Tracing & Interpretation Completed 06/08/2016 79341 ECHO Transthorasic Realtime 2D W Doppler & Color Flow Completed Hosp Encounters Type Date Location Provider CPT E/M Dx Office Visit 10/15/2017 [place] [address] Z01.811 11:30a [facility] J44.9 G47.33 Office Visit 09/25/2017 8:30a [facility] Stevenson, [address]3492 C50.911 [facility] Office Visit 06/19/2017 3:00p [facility], 06567 C50.911 [facility] MD Office Visit 03/06/2017 8:15a [facility], 15431 I50.812 [facility] DO FACC I27.81 G47.33 I27.23 J44.9 Z72.0 R18.8 R06.02 E78.5 Office Visit 09/05/2016 8:40a [facility] [place] [address] I27.2 [facility] FACC Z72.0 I27.81 E11.9 E78.5 J44.9 Office Visit 07/28/2016 9:15a [facility] [address] I27.2 [facility] J44.9 F17.210 J96.02 J96.01 Office Visit 07/25/2016 9:[address] [facility] [place] [address] J96.90 [facility] FACC I27.2 I27.81 I50.9 R06.02 E11.9 Z72.0 J44.9 E78.5 Office Visit 06/13/2016 11:07a [facility] [place] [address] J96.01 [facility] J96.02 I50.9 Office Visit 06/12/2016 11:07a [facility] [place] [address] J96.01 [facility] J96.02 I50.9 Office Visit 06/09/2016 11:06a [facility] [place] [address] J96.01 [facility] J96.02 I50.9 Office Visit 06/09/2016 2:13p [facility] [place] [address] I50.9 [facility] FACC J96.90 Office Visit 06/08/2016 2:55p [facility], Sukhdev Alston, 11761 I50.9 Hospitalists Dana R60.0 R74.8 F32.89 Office Visit 10/30/2013 7:36a [facility],michael Mancia M.D. 45511 486 Hospitalists 799.02 038.9 519.11 Office Visit 10/29/2013 7:36a [facility],michael Mancia M.D. 99486 486 Hospitalists 799.02 038.9 519.11 Office Visit 10/28/2013 7:35a [facility] 91384 486 Hospitalists 799.02 038.9 519.11 [facility] 10/27/2013 7[facility] 38829 486 Hospitalists 799.02 038.9 519.11 Office Visit 10/26/2013 7:34a [facility],michael Mancia M.D. 73818 486 Hospitalists 799.02 038.9 519.11 Office Visit 01/07/2009 1:45a [facility],michael Smith M.D. 71541 486 Hospitalists Office Visit 01/06/2009 2:00a [facility],michael Smith M.D. 50200 486 Hospitalists Office Visit 01/05/2009 1:00a [facility] Smith M.D. 49375 486 Hospitalists 799.02 Office Visit 01/04/2009 1:15a [facility] Mancia M.[facility]. 25995 486 Hospitalists 799.02 Plan of Care Future Appointment(s):12/05/2017 9:30 am - Jaida Bal MD at [facility]10/15/2017 - Jaida Bal MDZ01.811 Encounter for preprocedural respiratory examinationFollow up:6 lubnyG45.9 Chronic obstructive pulmonary disease, unspecifiedNew Orders:Diffusion CapacitySimple LgpejfcegpR58.33 Obstructive sleep apnea (adult) (pediatric)
--- NOTE | 2017-10-26 12:32 | RAD ---
INDICATION: RIGHT breast cancer. PROCEDURE: The risks and benefits of the procedure were explained to the patient. Written informed consent was obtained. 0.315 mCi total of filtered sulfur colloid were injected intradermal in 4 divided doses along the areolar margin flanking the 10:00 position tumor site. Spot images?were?obtained?of?the?thorax with the ipsilateral arm over the head. Very subtle solitary ipsilateral axillary sentinal node marked on the skin with the patient in DELEON position with the RIGHT arm over the head utilizing a point source. IMPRESSION: RIGHT breast lymphoscintigraphy with very subtle solitary ipsilateral axillary sentinel node marked on the skin.
[2017-10-26] MEDS ORDERED: fentaNYL* 50 MCG/ML 2 ML VIAL (100 MCG VIAL) ONE ×3 (13:47→18:53)
[2017-10-26] MEDS ORDERED: Ondansetron INJ* 2 MG/ML VIAL ONE (13:47)
[2017-10-26] MEDS ORDERED: Dexamethasone IV* 4 MG/ML 1 ML (4 MG) ONE (13:47)
[2017-10-26] MEDS ORDERED: Phenylephrine INJ* 10 MG/ML 1 ML VIAL (10 MG) ONE (13:47)
[2017-10-26] MEDS ORDERED: Midazolam* 1 MG/ML 5 ML VIAL (5 MG) ONE (13:47)
[2017-10-26] MEDS ORDERED: Rocuronium* 10 MG/ML VIAL ONE (13:47)
[2017-10-26] MEDS ORDERED: Lidocaine 2% PF * 5 ML VIAL ONE (13:47)
[2017-10-26] MEDS ORDERED: Propofol* 10 MG/ML 20 ML BTL IV PUSH ONE (13:47)
[2017-10-26] MEDS ORDERED: Methylene Blue 0.5 %* 50 MG/10 ML AMP IV ONE ×2 (14:09→14:41)
[2017-10-26] MEDS ORDERED: Bupivacaine 0.25% SDV PF* 10 ML VIAL INJ ONE ×2 (14:41→17:06)
[2017-10-26] MEDS ORDERED: Ondansetron INJ* 2 MG/ML VIAL IV PRN (18:42)
[2017-10-26] MEDS ORDERED: Levalbuterol 0.63MG/3ML NEB* UNIT OF USE INH PRN (18:42)
[2017-10-26] MEDS ORDERED: fentaNYL* 50 MCG/ML 2 ML VIAL (100 MCG VIAL) IV PRN (18:42)
[2017-10-26] MEDS ORDERED: Naloxone* 0.4 MG/ML 1 ML VIAL IV PRN (18:42)
[2017-10-26] MEDS ORDERED: Ketorolac INJ* 30 MG/ML 1 ML VIAL ONE (18:45)
--- NOTE | 2017-10-26 19:33 | BRIEFOPN ---
Brief Operative Note - Surgery Procedures: Procedures ASSISTANCE WITH RESPIRATORY VENTILATION, 24-96 HRS, CPAP (06/08/16) ASSISTANCE WITH RESPIRATORY VENTILATION, <24 HRS, CPAP (06/08/16) CLOSURE SKIN & SUBCUTANEOUS NEC (06/21/13) INTRODUCTION OF SERUM/TOX/VACCINE INTO MUSCLE, PERC APPROACH (06/08/16) 10/26/17 Op Note Pre-op dx: right breast cancer Post-op dx: same Procedure: bilateral mastectomies and right sentinel lymph node biopsy Surgeon: Graham Asst: Harpal Davis Eckenrode Anesth: general EBL: 200 cc Complications: none Pt. tolerated procedure well and was transferred to in a stable condition [facility]
--- NOTE | 2017-10-26 21:16 | CONSULT ---
Consult Consult: Consultation Note -- Critical Care Requesting Physician: Dr Namrata Stevenson Reason for consult: post op management, COPD Limitations in history/physical: none Date of consult: 10/26/2017 HPI: 56y F w/pmhx of Obesity, EREN, compliant with CPAP at night and 3L O2, COPD , active tobacco use, RV diastolic/systolic dysfunction, DM?; parent was diagnosed with breast CA in early 2017 after finding an 8cm right breast mass. Biopsy revealed triple negative CA. She was started on chemotherapy 06/2017 and recieved 4 cycles. Imaging has not revealed any metastatic process. She was referred for surgical eval for mastectomy. Patient is now post op from bilateral mastectomy and right sentinel LN biopsy. EBL 200cc MARY JO drain x2 Wound/chest dressings in place Awake/alert, no pain or distress. not on IVF infusions. on oximask+. ROS: negative except for pertinent positives mentioned above. PMHx: Obesity, EREN noncompliant with CPAP, COPD, active tobacco use, RV diastolic/systolic dysfunction PSHx: cleft palate surgery Family History: father alive and with dementia; mother alive with colon cancer history. Social History: Alcohol-3-4 beers/day, Smoking-6 cig/day for 30-40yrs, Drug use- none; Job-working in [employer] at local [employer]; family-Son. Allergies: Allergies Allergy/AdvReac Type Severity Reaction Status Date / Time theophylline Allergy Severe Swelling Uncoded 10/26/17 07:10 Of Face,Lips,& Throat thimerosal Allergy Severe Swelling Uncoded 10/26/17 07:10 Of Face,Lips,& Throat Home Medications: PARoxetine HCL TAB* [Paxil TAB*] 20 mg PO QAM 06/08/16 [History Confirmed ] Aspirin 81 mg PO QAM 06/14/17 [History Confirmed 10/26/17] Rosuvastatin (NF) 5 mg PO QAM 06/14/17 [History Confirmed 10/26/17] Aclidinium Edwards [Tudorza Pressair] 400 mcg IN BID 07/06/17 [History Confirmed 10/26/17] Budesonide/Formote 160/4.5(NF) [Symbicort 160/4.5 (NF)] 1 puff INH QAM 07/06/17 [History Confirmed 10/26/17] Furosemide TAB* [Lasix TAB*] 40 mg PO QAM 07/06/17 [History Confirmed 10/26/17] metFORMIN* [Glucophage 500 MG TAB *] 500 mg PO QAM 07/06/17 [History Confirmed 10/26/17] Tele: NSR Vitals: Vital Signs Temp 99.0 F 10/26/17 19:30 Pulse 83 10/26/17 22:15 Resp 12 10/26/17 22:15 BP 89/63 10/26/17 22:15 Pulse Ox 93 10/26/17 22:15 Intake & Output 10/26/17 10/26/17 10/27/17 06:59 18:59 06:59 Intake Total 1500 Output Total 230 Balance 1270 Weight 103.873 kg Intake: IV Fluids 1500 LR 1500 Output: MARY JO #1 140 MARY JO #2 40 Matos 50 O2/Vent: oximask, sat 99% Infusions: heplock Current Medications: Acetaminophen (Tylenol Tab*) 650 mg PO Q4H PRN PRN Reason: PAIN/FEVER Aclidinium [place] (Tudorza Pressair Mdi(Nf)) 1 puff INH BID [facility] Diphenhydramine HCl (Benadryl Po*) 25 mg PO Q6H PRN PRN Reason: INSOMNIA Hydromorphone HCl (Dilaudid Inj*) 1 mg IV Q4H PRN PRN Reason: PAIN - SEVERE Lactated Ringer's (Lactated Ringers 1000 Ml Bag*) 1,000 mls @ 50 mls/hr IV PER RATE [facility] Last Admin: 10/26/17 21:44 Dose: 50 mls/hr Ibuprofen (Motrin Tab*) 600 mg PO Q6H PRN PRN Reason: PAIN - MILD Ondansetron HCl (Zofran Odt Tab*) 4 mg PO Q6H PRN PRN Reason: NAUSEA/VOMITING Oxycodone HCl (Roxycodone Tab*) 10 mg PO Q4H PRN PRN Reason: PAIN Paroxetine HCl (Paxil Tab*) 20 mg PO QAM [facility] Physical Exam: General: awake, alert, no distress, no diaphoresis; obese Head: normocephalic, atraumatic HEENT: no pallor, no icterus, moist mucous membranes Neck: soft, supple, no jvd, no stridor CVS: normal rate, regular, no murmur Resp: bilateral air entry, no rhales/wheeze, no acc muscle use; surgical dressings in place with MARY JO drain x2+ Abdomen: soft, nontender, nondistended, bowel sounds present Ext: pulses+, warm, no edema Skin: intact, no breakdown, no dryness Neuro: awake, alert, orientedx3, moving all extremities, no gross focal deficit Labs: Laboratory Results - last 24 hr 10/26/17 10/26/17 07:29 19:33 POC Glucose (mg/dL) 151 H 172 H Imaging: - Assessment: 56y F w/pmhx of Obesity, EREN, compliant with CPAP at night and 3L O2 , COPD, active tobacco use, RV diastolic/systolic dysfunction, DM?; parent was diagnosed with breast CA in early 2017 after finding an 8cm right breast mass. Biopsy revealed triple negative CA. She was started on chemotherapy 06/2017 and recieved 4 cycles. Imaging has not revealed any metastatic process. She was referred for surgical eval for mastectomy. Patient is now post op from bilateral mastectomy and right sentinel LN biopsy. -s/p Bilateral Mastectomy and Right [place] LN biopsy - 10/26/2017 - POD#0 -Right Breast Ca s/p chemo -EREN -COPD, chronic hypoxia, on home o2 3L -DM Plan: Neuro- stable; delirium prec CVS- hemodyn stable. BP stable. start LR 50cc/hr. Resp- on oximask; appears comfortable. no distress. cont oximask, titrate to keep sat 90-92% given chronic copd. cont bronchodilators. Encourage incentive spirometry. CPAP at night. ID- afebrile. periop abx given. cont to monitor. GI- start clear liquid tonight if passes swallow. advance to heart healthy/ diabetic diet tomorrow. h2b po. Renal- start LR 50cc/hr. Heme- monitor MARY JO outputs; if increasing, check stat h/h. cbc in am. Endo- fingerstick as needed achs. sliding scale. Musculsk- bedrest tonight. pressure ulcer proph. Wounds- monitor MARY JO output. wound care and dressing change as per surgery. Nutrition- diabetic diet DVT prophylaxis: scds GI prophylaxis: h2b Central Line: no Arterial Line: no Matos Cathetor: no Disposition: ICU Code Status: full code Gordon Mason MD Maintenance Data Analyst (Electronically Signed)
[2017-10-26] MEDS ORDERED: oxyCODONE TAB* 5 MG TAB PO PRN (21:38)
[2017-10-26] MEDS ORDERED: HYDROmorphone INJ* 0.5 MG/0.5 ML SYRINGE IV PRN (21:38)
[2017-10-26] MEDS ORDERED: diPHENhydraMINE PO* 25 MG PO PRN (21:39)
[2017-10-26] MEDS ORDERED: Ondansetron ODT TAB* 4 MG PO PRN (21:39)
[2017-10-26] MEDS ORDERED: Ibuprofen TAB* 600 MG PO PRN (21:39)
[2017-10-26] MEDS ORDERED: Acetaminophen TAB* 325 MG PO PRN (21:40)
[2017-10-26] MEDS ORDERED: Albuterol 2.5 MG/3 ML NEB.SOL* (0.083%) INH PRN (23:21)
[2017-10-26] MEDS ORDERED: Dextrose 50% Syringe 50 ML* 25 GM/50 ML SYRINGE IV PUSH PRN (23:25)
[2017-10-27 06:16] LABS: EGFR Non-African American 77.5 (>60)
[2017-10-27 06:20] LABS: ABS Basophils 0 10^3/ul (0-0.2); ABS Eosinophils 0 10^3/ul (0-0.6); ABS Lymphocytes 0.5 10^3/ul (1.0-4.8); ABS Monocytes 1.1 10^3/ul (0-0.8); ABS Nucleated RBC 0 10^3/ul; Eosinophil % 0.1 % (0-6); Hematocrit 34 % (35-47); Lymphocyte % 4.2 % (25-47); Mean Corpuscular HGB Conc 33 g/dl (31-36); Mean Corpuscular Hemoglobin 31 pg (27-31); Mean Corpuscular Volume 95 fL (80-97); Mean Platelet Volume 7.5 um3 (7.4-10.4); Nucleated Red Blood Cells % 0.1; Platelet Count 215 10^3/ul (150-450); Red Blood Count 3.53 10^6/ul (4.00-5.40); Red Cell Distribution Width 17 % (10.5-15); White Blood Count 11.6 10^3/ul (3.5-10.8)
[2017-10-27] MEDS: Insulin LISPRO* 1 UNITS UNIT SUBCUT SCH ×4 (08:16→21:26)
[2017-10-27] MEDS: Famotidine TAB* 20 MG PO SCH (08:17)
[2017-10-27] MEDS: PARoxetine HCL TAB* 20 MG PO SCH (08:17)
--- NOTE | 2017-10-27 08:19 | PN ---
Progress Note - Progress Note Date of Service: 10/27/17 Note: Surgery Appreciate Dr. Mason's input. Ms. Harris denies complaints. She had a good night and denies pain. She is still requiring oxygen as her sats drop to the 80s without it. Vital Signs - 12 hr Temp Pulse Resp BP Pulse Ox 10/27/17 07:31 97.6 F 10/27/17 06:00 72 19 99/69 98 10/27/17 05:59 18 10/27/17 05:00 73 16 102/62 95 10/27/17 04:00 77 16 104/63 95 10/27/17 03:48 96.1 F 10/27/17 03:00 70 16 103/70 97 10/27/17 02:00 65 15 97/69 93 10/27/17 01:55 95 10/27/17 01:00 76 15 101/61 95 10/27/17 00:00 70 19 104/57 91 10/26/17 23:31 74 15 121/66 92 10/26/17 23:15 82 20 82/59 95 10/26/17 23:00 75 21 100/59 95 10/26/17 22:45 77 16 102/60 94 10/26/17 22:30 83 13 97/59 94 10/26/17 22:15 83 12 89/63 93 10/26/17 22:00 85 16 110/59 93 10/26/17 21:45 84 14 106/62 92 10/26/17 21:31 93 15 108/65 98 10/26/17 21:15 84 15 125/74 97 10/26/17 21:00 103 20 115/77 98 10/26/17 20:51 96 20 123/78 98 10/26/17 20:45 90 14 98 10/26/17 20:31 97.7 F 123 22 135/85 99 Mastectomy sites clean and dry; flaps viable, right superior flap is somewhat rubrous for ~2 cm from incision but viable. JPs serosanguinous drainage; slightly more bloody on the right than the left. Intake & Output 10/26/17 10/27/17 10/27/17 22:59 06:59 14:59 Intake Total 1500 385 Output Total 230 585 Balance 1270 -200 Weight 211 lb 13.828 oz Intake: IV Fluids 1500 385 LR 1500 385 Oral 0 Output: MARY JO #1 140 45 MARY JO #2 40 15 Adames 50 525 Other: # Bowel Movements 0 Laboratory Results - last 24 hr 10/26/17 10/26/17 10/27/17 07:29 19:33 05:58 WBC RBC Hgb Hct MCV MCH MCHC RDW Plt Count MPV Neut % (Auto) Lymph % (Auto) [place] % (Auto) Eos % (Auto) Baso % (Auto) Absolute Neuts (auto) Absolute Lymphs (auto) Absolute Monos (auto) Absolute Eos (auto) Absolute Basos (auto) Absolute Nucleated RBC Nucleated RBC % Sodium 136 Potassium 5.4 H Chloride 101 Carbon Dioxide 30 Anion Gap 5 BUN 16 Creatinine 0.77 Est GFR ( Amer) 93.8 Est GFR (Non-Af Amer) 77.5 BUN/Creatinine Ratio 20.8 H Glucose 138 H POC Glucose (mg/dL) 151 H 172 H Calcium 8.9 10/27/17 10/27/17 06:09 07:30 WBC 11.6 H RBC 3.53 L Hgb 11.0 L Hct 34 L MCV 95 MCH 31 MCHC 33 RDW 17 H Plt Count 215 MPV 7.5 Neut % (Auto) 86.3 H Lymph % (Auto) 4.2 L [place] % (Auto) 9.2 H Eos % (Auto) 0.1 Baso % (Auto) 0.2 Absolute Neuts (auto) 10.0 H Absolute Lymphs (auto) 0.5 L Absolute Monos (auto) 1.1 H Absolute Eos (auto) 0 Absolute Basos (auto) 0 Absolute Nucleated RBC 0 Nucleated RBC % 0.1 Sodium Potassium Chloride Carbon Dioxide Anion Gap BUN Creatinine Est GFR ( Amer) Est GFR (Non-Af Amer) BUN/Creatinine Ratio Glucose POC Glucose (mg/dL) 139 H Calcium A/P: Doing well from a surgical standpoint. Will d/c adames today, make sure she is comfortable with the drains and can maintain sats in a reasonable range before discharge; transfer to floor if okay with marketing co op/hospitalist. CLFoster
[2017-10-27] MEDS ORDERED: Aclidinium POWDER MDI(NF) INH SCH (09:00)
--- NOTE | 2017-10-27 09:55 | PN ---
Progress Note - Progress Note Date of Service: 10/27/17 Note: Progress Note -- Critical Care 24 hour events: -overnight no events; in bed, no pain now, tolerated. on LR. afebrile. no cough/ cp/sob/n/v/abd pain/diarrhea. eating+. -MARY JO drainage noted -surgery in this morning to see patient Tele: NSR Vitals: Vital Signs Temp 97.6 F 10/27/17 07:31 Pulse 95 10/27/17 09:01 Resp 22 10/27/17 09:01 BP 98/62 10/27/17 09:01 Pulse Ox 95 10/27/17 09:01 Intake & Output 10/26/17 10/27/17 10/27/17 18:59 06:59 18:59 Intake Total 1885 Output Total 815 280 Balance 1070 -280 Weight 103.873 kg 96.1 kg Intake: IV Fluids 1885 LR 1885 Oral 0 Output: MARY JO #1 185 35 MARY JO #2 55 20 Adames 575 225 Other: # Bowel Movements 0 O2/Vent: NC 1, sat 99% Infusions: LR 50 Current Medications: Acetaminophen (Tylenol Tab*) 650 mg PO Q4H PRN PRN Reason: PAIN/FEVER Last Admin: 10/27/17 08:36 Dose: 650 mg Aclidinium [place] (Tudorza Pressair Mdi(Nf)) 1 puff INH BID [facility] Albuterol (Ventolin 2.5 Mg/3 Ml Neb.Ingrid*) 2.5 mg INH Q4H PRN PRN Reason: SOB/WHEEZING Dextrose (D50w Syringe 50 Ml*) 12.5 gm IV PUSH .FOR FS < 60 - SS PRN PRN Reason: FS < 60 Diphenhydramine HCl (Benadryl Po*) 25 mg PO Q6H PRN PRN Reason: INSOMNIA Famotidine (Pepcid Tab*) 20 mg PO DAILY [facility] Last Admin: 10/27/17 08:17 Dose: 20 mg Hydromorphone HCl (Dilaudid Inj*) 1 mg IV Q4H PRN PRN Reason: PAIN - SEVERE Lactated Ringer's (Lactated Ringers 1000 Ml Bag*) 1,000 mls @ 50 mls/hr IV PER RATE [facility] Last Admin: 10/26/17 21:44 Dose: 50 mls/hr Ibuprofen (Motrin Tab*) 600 mg PO Q6H PRN PRN Reason: PAIN - MILD Insulin Human Lispro (Humalog*) 0 units [facility]; Protocol Last Admin: 10/27/17 08:16 Dose: 2 unit Ondansetron HCl (Zofran Odt Tab*) 4 mg PO Q6H PRN PRN Reason: NAUSEA/VOMITING Oxycodone HCl (Roxycodone Tab*) 10 mg PO Q4H PRN PRN Reason: PAIN Paroxetine HCl (Paxil Tab*) [facility] Last Admin: 10/27/17 08:17 Dose: 20 mg Physical Exam: General: awake, alert, no distress, no diaphoresis; obese Head: normocephalic, atraumatic HEENT: no pallor, no icterus, moist mucous membranes Neck: soft, supple, no jvd, no stridor CVS: normal rate, regular, no murmur Resp: bilateral air entry, no rhales/wheeze, no acc muscle use; surgical dressings in place with MARY JO drain x2+ Abdomen: soft, nontender, nondistended, bowel sounds present Ext: pulses+, warm, no edema Skin: intact, no breakdown, no dryness Neuro: awake, alert, orientedx3, moving all extremities, no gross focal deficit Labs: Laboratory Results - last 24 hr 10/26/17 10/26/17 10/27/17 07:29 19:33 05:58 WBC RBC Hgb Hct MCV MCH MCHC RDW Plt Count MPV Neut % (Auto) Lymph % (Auto) [place] % (Auto) Eos % (Auto) Baso % (Auto) Absolute Neuts (auto) Absolute Lymphs (auto) Absolute Monos (auto) Absolute Eos (auto) Absolute Basos (auto) Absolute Nucleated RBC Nucleated RBC % Sodium 136 Potassium 5.4 H Chloride 101 Carbon Dioxide 30 Anion Gap 5 BUN 16 Creatinine 0.77 Est GFR ( Amer) 93.8 Est GFR (Non-Af Amer) 77.5 BUN/Creatinine Ratio 20.8 H Glucose 138 H POC Glucose (mg/dL) 151 H 172 H Calcium 8.9 10/27/17 10/27/17 06:09 07:30 WBC 11.6 H RBC 3.53 L Hgb 11.0 L Hct 34 L MCV 95 MCH 31 MCHC 33 RDW 17 H Plt Count 215 MPV 7.5 Neut % (Auto) 86.3 H Lymph % (Auto) 4.2 L [place] % (Auto) 9.2 H Eos % (Auto) 0.1 Baso % (Auto) 0.2 Absolute Neuts (auto) 10.0 H Absolute Lymphs (auto) 0.5 L Absolute Monos (auto) 1.1 H Absolute Eos (auto) 0 Absolute Basos (auto) 0 Absolute Nucleated RBC 0 Nucleated RBC % 0.1 Sodium Potassium Chloride Carbon Dioxide Anion Gap BUN Creatinine Est GFR ( Amer) Est GFR (Non-Af Amer) BUN/Creatinine Ratio Glucose POC Glucose (mg/dL) 139 H Calcium Imaging: - Assessment: 56y F w/pmhx of Obesity, EREN, compliant with CPAP at night and 3L O2 , COPD, active tobacco use, RV diastolic/systolic dysfunction, DM?; parent was diagnosed with breast CA in early 2017 after finding an 8cm right breast mass. Biopsy revealed triple negative CA. She was started on chemotherapy 06/2017 and recieved 4 cycles. Imaging has not revealed any metastatic process. She was referred for surgical eval for mastectomy. Patient is now post op from bilateral mastectomy and right sentinel LN biopsy. -s/p Bilateral Mastectomy and Right [place] LN biopsy - 10/26/2017 - POD#1 -Right Breast Ca s/p chemo -EREN -COPD, chronic hypoxia, on home o2 3L -DM Plan: Neuro- stable; delirium prec CVS- hemodyn stable. BP stable. LR 50cc/hr. Resp- on NC, no distress. cont night time CPAP with O2 3L; appears comfortable. titrate to keep sat 90-92% given chronic copd. cont bronchodilators. Encourage incentive spirometry. ID- afebrile. periop abx given. GI- diabetic diet. h2b po. Renal- Cr okay; noted K 5.4. repeat K at 2pm. cont LR 50cc/hr. Heme- monitor MARY JO outputs, noted 280cc total. hg stable. Endo- fingerstick as needed achs. sliding scale. Musculsk- oob to chair if okay with surgery. pressure ulcer proph. Wounds- monitor MARY JO output. wound care and dressing change as per surgery. Nutrition- diabetic diet DVT prophylaxis: scds GI prophylaxis: h2b Central Line: no Arterial Line: no Adames Cathetor: yes; d/c adames today Disposition: stable to transfer to surgical floor Code Status: full code Gordon Mason MD Yacht Master (Electronically Signed)
[2017-10-27 14:32] LABS: EGFR Non-African American 81.2 (>60)
[2017-10-27] MEDS: ACLIDINIUM MDI INH SCH (21:22)
[2017-10-28] MEDS: Insulin LISPRO* 1 UNITS UNIT SUBCUT SCH (07:28)
--- NOTE | 2017-10-28 07:36 | PN ---
Progress Note - Progress Note Date of Service: 10/28/17 Note: Surgery Ms. Harris reports she slept well and now has no complaints. Vital Signs 10/27/17 10/27/17 10/27/17 08:00 08:48 09:00 Temperature Pulse Rate 79 92 90 Respiratory 20 19 19 Rate Blood Pressure 100/60 (mmHg) O2 Sat by Pulse 92 94 95 Oximetry 10/27/17 10/27/17 10/27/17 09:01 11:18 11:37 Temperature 97.7 F Pulse Rate 95 82 Respiratory 22 18 18 Rate Blood Pressure 98/62 109/58 (mmHg) O2 Sat by Pulse 95 92 Oximetry 10/27/17 10/27/17 10/27/17 12:23 19:29 19:42 Temperature 97.7 F 98.8 F Pulse Rate 82 102 Respiratory 18 16 16 Rate Blood Pressure 109/58 102/65 (mmHg) O2 Sat by Pulse 92 90 Oximetry 10/27/17 10/27/17 10/28/17 19:45 23:28 03:18 Temperature 97.4 F 97.0 F Pulse Rate 83 75 Respiratory 16 18 18 Rate Blood Pressure 111/68 108/62 (mmHg) O2 Sat by Pulse 98 95 Oximetry 10/28/17 10/28/17 10/28/17 03:24 05:01 05:28 Temperature Pulse Rate 78 Respiratory 18 16 16 Rate Blood Pressure (mmHg) O2 Sat by Pulse 95 Oximetry Incision: clean and dry, no signs of infection. Right superior flap has some patchy areas of purplish discoloration. JPs: serous drainage. Laboratory Results - last 24 hr 10/27/17 10/27/17 10/27/17 07:30 11:40 13:56 Sodium 133 L Potassium 4.6 Chloride 101 Carbon Dioxide 32 BUN 17 Creatinine 0.74 Est GFR ( Amer) 98.2 Est GFR (Non-Af Amer) 81.2 BUN/Creatinine Ratio 23.0 H Glucose 182 H POC Glucose (mg/dL) 139 H 114 H Calcium 8.6 10/27/17 10/27/17 17:14 21:15 Sodium Potassium Chloride Carbon Dioxide BUN Creatinine Est GFR ( Amer) Est GFR (Non-Af Amer) BUN/Creatinine Ratio Glucose POC Glucose (mg/dL) 127 H 149 H Calcium A/P: POD#2 s/p: bilateral mastectomies and right sentinel lymph node biopsy. Path not available. Doing well, can go home. CLFoster
[2017-10-28] MEDS: Famotidine TAB* 20 MG PO SCH (08:03)
[2017-10-28] MEDS: PARoxetine HCL TAB* 20 MG PO SCH (08:03)
[2017-10-28] MEDS: ACLIDINIUM MDI INH SCH (08:03)
[2017-10-28 08:13] VITALS: BP 96/59
--- NOTE | 2017-10-28 09:28 | DS ---
CC: Dr. Erasmo Stacy; Dr. Jona Borrero * DISCHARGE SUMMARY: DATE OF ADMISSION: 10/26/17 DATE OF DISCHARGE: 10/28/17 ADMISSION DIAGNOSIS: Right breast cancer. DISCHARGE DIAGNOSIS: Right breast cancer. PROCEDURE: During her hospitalization included bilateral mastectomies and right sentinel lymph node biopsy. HOSPITAL COURSE: Ms. Harris is a 56-year-old woman with recent diagnosis of breast cancer who underwent neoadjuvant chemotherapy and was then prepared for surgery. She underwent bilateral mastectomies and sentinel lymph node localization and excision on the date of admission and then because of history of pulmonary problems was admitted to the ICU for observation overnight. She was stable in the ICU overnight and transferred to the floor where she was weaned off of oxygen and by the next day was considered stable for discharge. She will be discharged home with instructions to follow up as an outpatient. [id number]/CPS #: [id number] MTDD
--- NOTE | 2017-10-29 04:01 | OP ---
CC: Dr. Erasmo Stacy; Dr. Jona Borrero * DATE OF OPERATION: 10/26/17 - ROOM #335 DATE OF : 60. SURGEON: Namrata Stevenson M.D. ASSISTANTS: VALERIE Costello; VALERIE Rowan, student; and Porsha Moreno NP. PRE-OP DIAGNOSIS: Right breast cancer. POST-OP DIAGNOSIS: Right breast cancer. OPERATIVE PROCEDURE: [place] node localization, bilateral mastectomies with sentinel lymph node biopsy. INDICATIONS: Ms. Harris is a 56-year-old woman recently diagnosed with breast cancer, who has undergone neoadjuvant chemotherapy, was ready for surgery. On the morning of surgery, she underwent sentinel lymph node localization and this was not very successful. So, in the holding area prior to going back to the operating room, I injected the right breast with some methylene blue. She tolerated that procedure well. DESCRIPTION OF PROCEDURE: She was then brought to the operating room, placed on the OR table in the supine position, and given general anesthesia. The chest wall and right axilla were prepped and draped in the usual sterile fashion. Attention was turned first to the left side, and here a curvilinear incision was made in the superior breast and then subcutaneous tissue was divided with electrocautery medially to the sternum, superiorly to the clavicle and laterally to the latissimus dorsi muscle. This was made difficult by her obese body habitus and her large breast size. An incision was then made in the inferior breast to complete an ellipse around the nipple areolar complex, and again subcutaneous tissue was divided with electrocautery medially to the sternum, inferiorly to the rectus muscle and laterally to the latissimus dorsi muscle. The breast was then elevated off the chest wall using electrocautery. Once it was completely removed, it was marked in the usual fashion and handed off as a specimen. Hemostasis was assured with electrocautery and ligature when needed and then a MARY JO drain was placed in the anterior-inferior axillary line through a small stab wound. Some excess skin was removed for a better closure and then 2-0 Vicryl was used to reapproximate the subcutaneous tissue and then the skin was closed with 4-0 Vicryl in a subcuticular fashion. Attention was then turned to the right side. Here, a curvilinear incision was made in the superior breast and subcutaneous tissue was divided with electrocautery medially to the sternum, superiorly to the clavicle, and laterally to the latissimus dorsi muscle. Then, an inferior incision was made encompassing the nipple areolar complex and completing the ellipse, and subcutaneous tissue was divided with electrocautery medially to the sternum, inferiorly to the rectus muscle, and laterally to the latissimus dorsi muscle. It was noted that medially the dissection of the right breast joined with the dissection of the left breast. Then, the breast was elevated off the chest wall using electrocautery. Once the region of the axilla was reached, a search was made for the sentinel node. The navigator did not identify the sentinel node, but by carefully tracing lymphatic channel that was colored with blue dye from the blue dye injection site to the axilla, a sentinel node was identified. This was dissected free from the axillary tissue using clips and clamps, and ligature. The sentinel node was handed off as a specimen. The rest of the breast was amputated from the chest wall and handed off as a specimen with the usual markings. Hemostasis was assured with a combination of electrocautery and ligature, and once hemostasis appeared adequate, a MARY JO drain was placed in the anterior-inferior axillary line through a small stab wound and closure was accomplished. A 2-0 Vicryl was used to close the subcutaneous tissue as well as some 3-0 Vicryl to reinforce the closure and then the skin was closed with 4- 0 Vicryl in a subcuticular fashion. Steri-Strips and dry fluffy dressings were applied to both sites and 30 mL of 0.25% Marcaine was instilled into both MARY JO drains and allowed to sit until the patient reached the recovery room. Then, the entire fluffy dressing was secured in place with SOFIE wraps. All sponge and instrument counts were correct. The patient tolerated the procedure well and was transferred to Recovery in a stable but guarded condition. [id number]/[facility] #: [id number] [facility]
--- NOTE | 2017-10-29 10:33 | DS ---
CC: [facility]; Dr. Jona Borrero * DISCHARGE SUMMARY: DATE OF ADMISSION: 10/26/17 DATE OF DISCHARGE: 10/28/17 ADMISSION DIAGNOSIS: Right breast cancer. DISCHARGE DIAGNOSIS: Right breast cancer. PROCEDURE: During her hospitalization included bilateral mastectomies with right sentinel lymph node biopsy. HOSPITAL COURSE: Ms. Harris is a 56-year-old woman with a diagnosis of breast cancer, who was able to undergo her surgery following neoadjuvant chemotherapy. On the date of surgery, she had sentinel lymph node localization attempt, which was not very successful and then had blue dye injected preoperatively. Intraoperatively, the blue dye allowed the localization of the sentinel node and she also underwent bilateral mastectomies. Postoperatively, she was admitted to the ICU because of her borderline pulmonary status. She was observed in the ICU and by the next day was stable enough to be transferred to the floor, however, her oxygen levels still were low when she did not have supplemental oxygen on and she was, therefore, kept in the hospital overnight to stabilize and on the second postoperative day, she had good oxygen levels on room air, had her pain under control and was making good progress postoperatively. She was considered stable for discharge and was discharged to home with instructions to follow up as an outpatient. [id number]/[facility] #: [id number] [place]
== END 2017-10-28 10:40 | disposition home or self-care (01) | DRG 362 ==
LOC: AA 10-26 06:46 → ICU 10-26 20:43 → SSU 10-27 12:05
PROVIDERS: ADMIT Surgery; ATTEND Surgery
PROC: 07B50ZX Excision of Right Axillary Lymphatic, Open Approach, Diagnostic (ICD-10-PCS; 2017-10-26)
PROC: 0HTV0ZZ Resection of Bilateral Breast, Open Approach (ICD-10-PCS; principal; 2017-10-26 14:30)
DX: C50.211 Malignant neoplasm of upper-inner quadrant of right female breast (principal); I50.40 Unspecified combined systolic (congestive) and diastolic (congestive) heart failure; Z99.81 Dependence on supplemental oxygen; E66.9 Obesity, unspecified; G47.33 Obstructive sleep apnea (adult) (pediatric); F17.210 Nicotine dependence, cigarettes, uncomplicated; E11.9 Type 2 diabetes mellitus without complications; R09.02 Hypoxemia; Z17.1 Estrogen receptor negative status [ER-]; Z68.36 Body mass index [BMI] 36.0-36.9, adult; Z79.84 Long term (current) use of oral hypoglycemic drugs; Z79.82 Long term (current) use of aspirin; Z79.899 Other long term (current) drug therapy; Z88.8 Allergy status to other drugs, medicaments and biological substances; Z80.0 Family history of malignant neoplasm of digestive organs
CPT/HCPCS: 36415; 78195; 80048; 85025; 87641; 88307; 88342; 88360; A9270-GY; A9541; J0690; J1100; J1644; J1885; J2250; J2405; J2704; J3010; J3490

== ENCOUNTER 2017-12-31 16:43 | Emergency (ER) | payer BC ==
--- OUTSIDE RECORDS SUMMARY | 2017-12-31 16:59 | XMS REPORT ---
:1960 External Reference #:[id number] Author Organization [employer] [facility] Address [address] [place] [address] [place] [address] Phone [phone] Care Team Providers Name Role Phone Jona Borrero MD Primary Care Physician Unavailable Payers Type Date Identification Numbers Payment Provider Subscriber Commercial Policy Number: [id number] [employer] Anahi Harris PayID: [id number] [place] [id number] Problems Date Description Provider Status Onset: 07/25/2016 Pulmonary hypertension Eren Ring DO [facility] Active Onset: 07/28/2016 Acute respiratory failure Jaida Bal MD Active Onset: 07/28/2016 Chronic obstructive lung disease Jaida Bal MD Active Onset: 07/28/2016 Disturbance in sleep behavior Jaida Bal MD Active Family History Date Family Member(s) Problem(s) Comments Father Prostate Cance Mother Colon Cancer Siblings 5 Sister heart issues Others healthy Social History Type Date Description Comments Marital Status Single Lives With Son 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 ETOH Use Currently consumes alcohol 2 beers most days Smoking Light tobacco smoker (10 or fewer cigarettes/day) Recreational Drug Use Denies Drug Use Smoking Patient is a current smoker, 2/day since 06/08/16 1 PPD x smokes every day 30 years Daily Caffeine Consumes on average 2 cups of decaff coffee per day Exercise Type/Frequency Walks 5 times a week Allergies, Adverse Reactions, Alerts Date Description Reaction Status Severity Comments 07/25/2016 Theophylline active hives 07/25/2016 Thimerosal active swelling Medications Medication Date Status Form Strength Qnty SIG Indications Ordering Provider Silver 11/09/ Active Cream 1% 50gm apply as Namrata Cartwright Sulfadiazine 2017 directed to young Stevenson MD area once a day Furosemide 03/06/ Active Tablets 40mg 90tabs 1 [...] 1 by mouth Unknown 0000 every day (on hold) Rosuvastatin / Active Tablets 5mg Darlow, Calcium 0000 Jona Pino MD Hydrocodone-Ac 10/05/ Hx Tablets 5-325mg 20tabs 1 or 2 Namrata Cartwright etaminophen 2018 tablets by deyvi Stevenson every 4-6 hours as needed for moderately severe pain Atorvastatin 09/05/ Hx Tablets 40mg 90tabs 1 by mouth E78.5 Eren Grier Calcium 2016 every day DO DAVID RingC Furosemide / Hx Tablets 20mg 2 by mouth Unknown 0000 - every day 2016 Spiriva / Hx Capsules 18mcg 1 unit Unknown Handihaler 0000 - inhalation 07/27/ daily 2016 (patient not sure if this is correct) Vital Signs Date Vital Result Comment 12/05/2017 Height 66 inches 5'6" Weight 209.00 lb Heart Rate 88 /min BP Systolic Sitting 110 mmHg BP Diastolic Sitting 78 mmHg Respiratory Rate 14 /min O2 % BldC Oximetry 89 % BMI (Body Mass Index) 33.7 kg/m2 11/20/2017 Heart Rate 80 /min Respiratory Rate 18 /min Body Temperature 98.5 F 11/16/2017 Heart Rate 76 /min Respiratory Rate 18 /min Body Temperature 97.6 F 11/14/2017 Heart Rate 80 /min Respiratory Rate 18 /min Body Temperature 97.7 F 11/09/2017 Heart Rate 76 /min Respiratory Rate 16 /min Body Temperature 99.0 F 11/02/2017 Heart Rate 80 /min BP Systolic 106 mmHg BP Diastolic 68 mmHg Respiratory Rate 16 /min Body Temperature 97.4 F 10/15/2017 Height 66 inches 5'6" Weight 232.50 [...] Test Result H/L Range Note Laboratory test finding 07/13/2017 Point of Care Glucose 140 mg/dL High 70 -100 1 Basic Metabolic Panel 03/27/2017 Sodium 145 mmol/L 133-145 Potassium 5.0 mmol/L 3.5-5.0 Chloride 103 mmol/L 101-111 Co2 Carbon Dioxide 34 mmol/L High 22-32 Anion Gap 8 mmol/L 2-11 Glucose 117 mg/dL High 70-100 Blood Urea Nitrogen 18 mg/dL 6-24 Creatinine 0.91 mg/dL 0.51-0.95 BUN/Creatinine Ratio 19.8 8-20 Calcium 9.6 mg/dL 8.6-10.3 Egfr Non- 63.9 >60 Egfr 82.2 >60 2 Laboratory test finding 03/27/2017 B-Type Natriuretic Peptide BNP 38 pg/mL 3 Lipid Profile 07/25/2016 Triglycerides 139 mg/dL 4 (Trig/Chol/HDL) Cholesterol 234 mg/dL 5 HDL Cholesterol 66.8 mg/dL 6 LDL Cholesterol 139 mg/dL 7 Laboratory test finding 07/25/2016 Magnesium 2.1 mg/dL 1.9-2.7 Basic Metabolic Panel 07/25/2016 Sodium 137 mmol/L 133-145 Potassium 4.3 mmol/L 3.5-5.0 Chloride 96 mmol/L Low 101-111 Co2 Carbon Dioxide 35 mmol/L High 22-32 Anion Gap 6 mmol/L 2-11 Glucose 123 mg/dL High 70-100 Blood Urea Nitrogen 19 mg/dL 6-24 Creatinine 0.82 mg/dL 0.51-0.95 BUN/Creatinine Ratio 23.2 High 8-20 Calcium 9.4 mg/dL 8.6-10.3 Egfr Non- 72.4 >60 Egfr 93.1 >60 8 Laboratory test finding 07/25/2016 B-Type Natriuretic Peptide BNP 99 pg/mL 9 1 Internal Medicine Physician: [id number] 2 Because ethnic data is not always readily [...] 15-29 5 Kidney failure <15 (or dialysis) 3 >100 to <200 pg/mL: likely compensated congestive heart failure (CHF) 200 to 400 pg/mL: likely moderate CHF >400 pg/mL: likely moderate to severe CHF 4 Desirable <150 Borderline high 150-199 High 200-499 Very High >500 5 Desirable <200 Borderline high 200-239 High >239 6 Low <40 Desirable: 40-60 High: >60 7 Desirable: <100 mg/dL Near Optimal: 100-129 mg/dL Borderline High: 130-159 mg/dL High: 160-189 mg/dL Very High: >189 mg/dL 8 Because ethnic data is not always readily [...] 15-29 5 Kidney failure <15 (or dialysis) 9 >100 to <200 pg/mL: likely compensated congestive heart failure (CHF) 200 to 400 pg/mL: likely moderate CHF >400 pg/mL: likely moderate to severe CHF Procedures Date CPT Code Description Status 10/26/2017 03701 Intraoperative Id Of Guston Lumph Node, Injection Completed Non-Radio Dye 10/26/2017 14554 Intraoperative Id Of Guston Lumph Node, Injection Completed Non-Radio Dye 10/26/2017 28532 Mastectomy Simple Complete Completed 10/26/2017 03512 Mastectomy Simple Complete Completed 10/15/2017 01193 Diffusing Capacity Completed 10/15/2017 87293 Plethysmography Determination Lung Volumes & Per Airway Completed Resist 10/15/2017 87780 Spirometry Incl Graphic Record Completed 07/13/2017 66643 Fluoroscopic Guidance For Cent Completed 07/13/2017 93189 Insertion Tunneled Cent Venous Cathr W Subcut Port 5 Completed Yrs Or Oldr 07/12/2017 32068 ECHO Transthorasic Realtime 2D W Doppler & Color Flow Completed Hosp 06/11/2017 Mammogram Completed 10/20/2016 95092 Polysomnography Sleep Staging 4+ Parameters W/Cpap Completed 08/02/2016 66415 ECHO Transthoracic, Real-Time 2D With Doppler And Color Completed Flow 07/25/2016 48708 EKG Tracing & Interpretation Completed 06/08/2016 63703 ECHO Transthorasic Realtime 2D W Doppler & Color Flow Completed Hosp Encounters Type Date Location Provider CPT E/M Dx Office Visit 12/05/2017 [place] [address] J44.9 9:30a [facility] G47.33 E66.09 Office Visit 10/27/2017 12:39p [place] [address] J44.9 J96.11 G47.33 Z90.13 Office Visit 10/26/2017 12:38p [place] [address] J44.9 J96.11 E11.9 Z90.13 Z99.81 Office Visit 10/15/2017 11:30a [facility] [place] [address] Z01.811 [facility] J44.9 G47.33 Office Visit 09/25/2017 8:30a [facility] [place], 46446 C50.911 Screw Machine Set Up Operator Tool MD Office Visit 06/19/2017 3:00p [facility], 18550 C50.911 [facility] MD Office Visit 03/06/2017 8:15a [facility] Eren Jonesno, 66530 I50.812 [facility] DO FACC I27.81 G47.33 I27.23 J44.9 Z72.0 R18.8 R06.02 E78.5 Office Visit 09/05/2016 8:40a [facility] [place] [place] [address] I27.2 Screw Machine Set Up Operator Tool FACC Z72.0 I27.81 E11.9 E78.5 J44.9 Office Visit 07/28/2016 9:15a [facility] [place] [address] I27.2 [facility] J44.9 F17.210 J96.02 J96.01 Office Visit 07/25/2016 9:00a [facility] Of Erennoe Grier [facility] [place] [address] J96.90 [facility] FACC I27.2 I27.81 I50.9 R06.02 E11.9 Z72.0 J44.9 E78.5 Office Visit 06/13/2016 11:07a [facility] [place] [address] J96.01 [facility] J96.02 I50.9 Office Visit 06/12/2016 11:07a [facility] [place] [address] J96.01 [facility] J96.02 I50.9 Office Visit 06/09/2016 2:13p [facility] [place] [address] I50.9 [facility] FACC J96.90 Office Visit 06/09/2016 11:06a [facility] [place] [address] J96.01 [facility] J96.02 I50.9 Office Visit 06/08/2016 2:55p [facility], Sukhdev Alston, 96206 I50.9 Hospitalists MRoxy R60.0 R74.8 F32.89 Office Visit 10/30/2013 7:36a [facility],michael Mancia M.D. 36939 486 Hospitalists 799.02 038.9 519.11 Office Visit 10/29/2013 7:36a [facility],michael Mancia M.D. 72094 486 Hospitalists 799.02 038.9 519.11 Office Visit 10/28/2013 7:35a [facility],michael Mancia M.D. 13726 486 Hospitalists 799.02 038.9 519.11 Office Visit 10/27/2013 7:35a [facility],michael Mancia M.D. 92609 486 Hospitalists 799.02 038.9 519.11 Office Visit 10/26/2013 7:34a [facility],michael Mancia M.D. 56361 486 Hospitalists 799.02 038.9 519.11 Office Visit 01/07/2009 1:45a [facility],michael Smith M.D. 63307 486 Hospitalists Office Visit 01/06/2009 2:00a [facility],michael Smith M.D. 00796 486 Hospitalists Office Visit 01/05/2009 1:00a [facility],michael Smith M.D. 46891 486 Hospitalists 799.02 Office Visit 01/04/2009 1:15a [facility],michael Mancia M.D. 06451 486 Hospitalists 799.02 Plan of Care Future Appointment(s):01/28/2018 8:30 am - Jaida Bal MD at [facility]12/05/2017 - Jaida Bal MDJ44.9 Chronic obstructive pulmonary disease, unspecifiedFollow up:6 hmuelL06.33 Obstructive sleep apnea (adult) (pediatric)New Orders:Sleep-IafamsijD98.09 Other obesity due to excess calories
--- NOTE | 2017-12-31 17:16 | RAD ---
HISTORY: sob COMPARISONS: July 13, 2017 VIEWS: 4: Frontal dual-energy and lateral views of the chest. FINDINGS: CARDIOMEDIASTINAL SILHOUETTE: The cardiomediastinal silhouette is normal. DARRICK: The darrick are normal. PLEURA: The costophrenic angles are sharp. No pleural abnormalities are noted. LUNG PARENCHYMA: The lungs are clear. ABDOMEN: The upper abdomen is clear. There is no subphrenic gas. BONES AND SOFT TISSUES: No bone or soft tissue abnormalities are noted. Surgical clips are noted in the right axilla. OTHER: A left-sided chest port is noted with the tip overlying the superior vena cava. IMPRESSION: NO ACTIVE CARDIOPULMONARY DISEASE.
[2017-12-31 18:49] LABS: ABS Basophils 0.1 10^3/ul (0-0.2); ABS Eosinophils 0.3 10^3/ul (0-0.6); ABS Lymphocytes 1.1 10^3/ul (1.0-4.8); ABS Monocytes 0.9 10^3/ul (0-0.8); ABS Neutrophils 4.7 10^3/ul (1.5-7.7); ABS Nucleated RBC 0 10^3/ul; Eosinophil % 4.7 % (0-6); Hematocrit 42 % (35-47); Hemoglobin 13.9 g/dl (12.0-16.0); Lymphocyte % 15.1 % (25-47); Mean Corpuscular HGB Conc 33 g/dl (31-36); Mean Corpuscular Hemoglobin 29 pg (27-31); Mean Corpuscular Volume 87 fL (80-97); Mean Platelet Volume 7.4 um3 (7.4-10.4); Nucleated Red Blood Cells % 0.1; Platelet Count 284 10^3/ul (150-450); Red Blood Count 4.88 10^6/ul (4.00-5.40); Red Cell Distribution Width 16 % (10.5-15); White Blood Count 7.1 10^3/ul (3.5-10.8)
[2017-12-31 19:13] LABS: EGFR Non-African American 68.9 (>60)
[2017-12-31] MEDS ORDERED: predniSONE TAB* 20 MG PO ONE (19:33)
[2017-12-31] MEDS ORDERED: Albuterol/Ipratropium NEB.SOL* Albuterol 2.5 MG/Ipratropium 0.5 MG 3 ML INH ONE (19:33)
--- NOTE | 2017-12-31 19:40 | ED ---
Respiratory - HPI Summary HPI Summary: Pt is a 57 y/o female who presents to the ED c/o wheezing. She was sent here by Dr. Borrero for a pulse of 115-130 bpm, as he was concerned about AFib. Pt c/o mild SOB and wheezing since yesterday. Her SOB is not exacerbated by exertion. She denies any CP, LE edema, palpitations, or abnormal BMs. As per pricing actuary, she has been sleeping more the past few days. Pt recently had a mastectomy on , and got off her vacuum pump last week. She is a smoker. PMHx COPD, PNA, and AFib in 2017. - History of Current Complaint Chief Complaint: EDShortnessOfBreath Stated Complaint: SOB/HIGH HEART RATE Time Seen by Provider: 12/31/17 19:15 Hx Obtained From: Patient, Family/Resident In Diagnostic Radiology - Resident In Diagnostic Radiology Onset/Duration: Gradual Onset, Lasting Days - 2, Still Present Pain Intensity: 0 Character: Wheezing Sputum Amount: None Aggravating Factor(s): Other - Smoking Alleviating Factor(s): Nothing Associated Signs and Symptoms: SOB - Allergy/Home Medications Allergies/Adverse Reactions: Allergies Allergy/AdvReac Type Severity Reaction Status Date / Time theophylline Allergy Severe Swelling Uncoded 12/31/17 16:50 Of Face,Lips,& Throat thimerosal Allergy Severe Swelling Uncoded 12/31/17 16:50 Of Face,Lips,& Throat PMH/Surg Hx/FS Hx/Imm Hx Endocrine/Hematology History: Reports: Hx Diabetes - type 2 Denies: Hx Thyroid Disease Cardiovascular History: Reports: Hx Atrial Fibrillation, Hx Coronary Artery Disease, Other Cardiovascular Problems/Disorders - fluid around heart 2016- resolved Denies: Hx Hypertension Respiratory History: Reports: Hx Chronic Obstructive Pulmonary Disease (COPD), Hx Pneumonia, Hx Seasonal Allergies, Hx Sleep Apnea, Other Respiratory Problems/ Disorders - CURRENT EVERYDAY SMOKER 40 YR HX, USES O2 VIA N/C AT 4 L/MIN AT HS Denies: Hx Asthma GI History: Denies: Hx Ulcer History: Denies: Hx Dialysis, Hx Renal Disease Musculoskeletal History: Reports: Hx Arthritis Sensory History: Reports: Hx Cataracts - SX BLT cataracts, Hx Contacts or Glasses Denies: Hx Hearing Aid Opthamlomology History: Reports: Hx Cataracts - SX BLT cataracts, Hx Contacts or Glasses Psychiatric History: Reports: Hx Depression - Cancer History Cancer Type, Location and Year: new dx breast Hx Chemotherapy: No Hx Radiation Therapy: No - Surgical History Surgery Procedure, Year, and Place: bilat cataract - lens implant, cleft pallet Hx Anesthesia Reactions: No Infectious Disease History: No Infectious Disease History: Denies: Hx Clostridium Difficile, Hx Hepatitis, Hx Human Immunodeficiency Virus (HIV), Hx of Known/Suspected MRSA, Hx Shingles, Hx Tuberculosis, Traveled Outside the [place] in Last 30 Days - Family History Known Family History: Positive: Cardiac Disease - CHF - grandmother maternal - Social History Alcohol Use: Daily Alcohol Amount: beer Hx Substance Use: No Substance Use Type: Reports: None Hx Tobacco Use: Yes Smoking Status (MU): Light Every Day Tobacco Smoker Type: Cigarettes Amount Used/How Often: 4-8 per day Length of Time of Smoking/Using Tobacco: 30 years Have You Smoked in the Last Year: Yes Review of Systems Negative: Palpitations, Chest Pain Positive: Shortness Of Breath, Other - Wheezing Negative: Other - abnormal BM Negative: Edema All Other Systems Reviewed And Are Negative: Yes Physical Exam - Summary Physical Exam Summary: Appearance: Well appearing, no pain distress Skin: warm, dry, reflects adequate perfusion, V.A.C. dressing on mastectomy scar on right breast with silver patch Head/face: normal Eyes: EOMI, JOJO ENT: normal, mucous membranes moist Neck: supple, non-tender Respiratory: diffuse wheezing, prolonged expiratory phase Cardiovascular: RRR, pulses symmetrical, no LE edema Abdomen: non-tender, soft Bowel Sounds: present Musculoskeletal: normal, strength/ROM intact Neuro: normal, sensory motor intact, A&Ox3 Triage Information Reviewed: Yes Vital Signs On Initial Exam: Initial Vitals Temp Pulse Resp BP Pulse Ox 97.8 F 103 20 140/81 89 12/31/17 16:48 12/31/17 16:48 12/31/17 16:48 12/31/17 16:48 12/31/17 16:48 Vital Signs Reviewed: Yes Diagnostics - Vital Signs Vital Signs Temp Pulse Resp BP Pulse Ox 12/31/17 18:46 97 31 132/92 92 12/31/17 18:45 7 12/31/17 16:48 97.8 F 103 20 140/81 89 - Laboratory Lab Results: Lab Results 12/31/17 12/31/17 12/31/17 Range/Units 18:35 18:35 18:35 WBC 7.1 (3.5-10.8) 10^3/ul RBC 4.88 (4.00-5.40) 10^6/ul Hgb 13.9 (12.0-16.0) g/dl Hct 42 (35-47) % MCV 87 (80-97) fL MCH 29 (27-31) pg MCHC 33 (31-36) g/dl RDW 16 H (10.5-15) % Plt Count 284 (150-450) 10^3/ul MPV 7.4 (7.4-10.4) um3 Neut % (Auto) 66.8 (38-83) % Lymph % (Auto) 15.1 L (25-47) % Ness % (Auto) 12.1 H (0-7) % Eos % (Auto) 4.7 (0-6) % Baso % (Auto) 1.3 (0-2) % Absolute Neuts (auto) 4.7 (1.5-7.7) 10^3/ul Absolute Lymphs (auto) 1.1 (1.0-4.8) 10^3/ul Absolute Monos (auto) 0.9 H (0-0.8) 10^3/ul Absolute Eos (auto) 0.3 (0-0.6) 10^3/ul Absolute Basos (auto) 0.1 (0-0.2) 10^3/ul Absolute Nucleated RBC 0 10^3/ul Nucleated RBC % 0.1 Sodium 134 L (135-145) mmol/L Potassium 4.1 (3.5-5.0) mmol/L Chloride 97 L (101-111) mmol/L Carbon Dioxide 31 (22-32) mmol/L Anion Gap 6 (2-11) mmol/L BUN 19 (6-24) mg/dL Creatinine 0.85 (0.51-0.95) mg/dL Est GFR ( Amer) 83.4 (>60) Est GFR (Non-Af Amer) 68.9 (>60) BUN/Creatinine Ratio 22.4 H (8-20) Glucose 164 H (70-100) mg/dL Lactic Acid 1.4 (0.5-2.0) mmol/L Calcium 9.1 (8.6-10.3) mg/dL Total Bilirubin 0.30 (0.2-1.0) mg/dL AST 19 (13-39) U/L ALT 14 (7-52) U/L Alkaline Phosphatase 63 (34-104) U/L Troponin I 0.01 (<0.04) ng/mL Total Protein 7.1 (6.4-8.9) g/dL Albumin 4.1 (3.2-5.2) g/dL Globulin 3.0 (2-4) g/dL Albumin/Globulin Ratio 1.4 (1-3) Result Diagrams: 12/31/17 18:35 12/31/17 18:35 Lab Statement: Any lab studies that have been ordered have been reviewed, and results considered in the medical decision making process. - Radiology CXR Xray Interpretation: No Acute Changes - NO ACTIVE CARDIOPULMONARY DISEASE. ED physician reviewed radiology report. Radiology Interpretation Completed By: Radiologist - EKG 17:28 Cardiac Rate: NL - 96 bpm EKG Rhythm: Sinus Rhythm ST Segment: Non-Specific EKG Interpretation: RAD, RBBB Re-Evaluation - Re-Evaluation First Eval Re-Evaluation Time: 20:00 Change: Improved Comment: Pt feels better after breathing treatment. Wheezing diminished. States O2 sat never over 90, but is currently at 92-93. Disposition - Course Course Of Treatment: Patient with a recent mastectomy however known extensive COPD with baseline O2 sats usually no better than 90%. Today with diffuse wheezing that improved significantly with breathing treatments, steroids. Her heart rate has not been tachycardic at all and she is not febrile. She has no chest pain or lower extremity edema. She was treated with relief and discharged in good condition on steroids, antibiotics and breathing treatments. - Differential Dx - Cardiopulmonary Differential Diagnoses - Cardiopulmonary: Exacerbation Of COPD, Myocardial Infarction, Pulmonary Edema, Pulmonary Embolism - Diagnoses Provider Diagnoses: COPD exacerbation, Tobacco abuse Discharge - Sign-Out/Discharge Documenting (check all that apply): Patient Departure - Discharge - Discharge Plan Condition: Stable Disposition: HOME Prescriptions: Levofloxacin TAB* [Levaquin TAB*] 750 mg PO DAILY #4 tab predniSONE TAB* [Deltasone TAB*] 50 mg PO DAILY #4 tab Patient Education Materials: COPD (Chronic Obstructive Pulmonary Disease) (ED) Referrals: Jona Borrero MD [Primary Care Provider] - Additional Instructions: Cut back or quit smoking. Use breathing treatments (nebulizers) every 4 hours until well. Return with fever, chest pain, increased shortness of breath, swelling in the legs, worse or other concerns as discussed. Follow up with your primary care physician tomorrow. - Billing Disposition and Condition Condition: STABLE Disposition: Home - Attestation Statements Document Initiated by Raz: Yes Documenting Scribe: Bonnie Tijerina Provider For Whom Raz is Documenting (Include Credential): Rodolfo Rasmussen MD Scribe Attestation: Bonnie Wynne, scribed for Rodolfo Rasmussen MD on 01/01/18 at 0705. Scribe Documentation Reviewed: Yes Provider Attestation: The documentation as recorded by the Bonnie doyle accurately reflects the service I personally performed and the decisions made by Rodolfo betancur MD
[2017-12-31] MEDS ORDERED: Levofloxacin TAB* 250 MG PO ONE (20:06)
[2017-12-31 20:43] VITALS: BP 109/80
== END 2017-12-31 20:43 | disposition home or self-care (01) ==
LOC: ED 16:43
DX: J44.1 Chronic obstructive pulmonary disease with (acute) exacerbation (principal); R06.02 Shortness of breath; R06.2 Wheezing; E11.9 Type 2 diabetes mellitus without complications; F17.210 Nicotine dependence, cigarettes, uncomplicated
CPT/HCPCS: 36415; 71046; 80053; 83605; 84484; 85025; 87040; 93005; 99283; A9270-GY; J7512

== ENCOUNTER 2018-01-18 06:44 | Day surgery (SDC) | payer BC, MEDICAID ==
--- NOTE | 2018-01-08 21:36 | HP ---
CC: Dr. Borrero; Dr. Stacy; Eren Ring, DO * PREOPERATIVE HISTORY AND PHYSICAL: DATE OF ADMISSION/SURGERY: 01/18/18 This patient is scheduled for same-day surgery admission by Dr. Setvenson on Sunday , 01/18/18. ATTENDING SURGEON: Namrata Stevenson MD * (dictated by Porsha Ren NP). CHIEF COMPLAINT: Right breast cancer. HISTORY OF PRESENT ILLNESS: The patient is a 57-year-old female well known to Dr. Stevenson, status post bilateral mastectomies and right sentinel lymph node biopsy for triple negative invasive ductal carcinoma and 1 sentinel lymph node positive for metastatic disease on 10/26/17. The patient underwent neoadjuvant chemotherapy preoperatively in the spring of this year. She has been followed by Dr. Stevenson at the [facility] for postoperative infection of the right mastectomy incision and that is currently healing very nicely and there are minimal chronic areas of open wound at this time. Dr. Stevenson has recommended completion right axillary dissection as a same-day surgery procedure and described the nature of the surgical procedure, the rationale for the procedure, the use of a Etienne- Augustine drain, the relevant risks and benefits and today, I reviewed the expected postoperative care and recovery. The patient has had a chance to ask questions and stated that she understands the information and is satisfied with the answers given to her questions. She will sign surgical consent on the day of surgery. PAST MEDICAL HISTORY: Significant for obesity; obstructive sleep apnea, currently using CPAP and oxygen at 3 L during the night; COPD; and active tobacco use. She was admitted in June 2016 for shortness of breath, echocardiogram revealed dilated right ventricular hypertrophy with moderately reduced right ventricular systolic function, but normal left ventricular systolic function. She had a repeat echo in June of this year, which was essentially the same. She has seen Dr. Ring in the past. She is also treated for type 2 diabetes and depression. PAST SURGICAL HISTORY: Bilateral mastectomies and right sentinel lymph node as mentioned in history of present illness. The left mastectomy was prophylactic; she has also had PowerPort placement and cleft palate surgery. CURRENT MEDICATIONS: 1. Furosemide 40 mg p.o. daily. 2. Tudorza Pressair 2 puffs b.i.d. 3. Rosuvastatin 5 mg p.o. daily. 4. Symbicort 160/4.5 mcg per actuation 1 puff daily. 5. Paroxetine 20 mg p.o. daily. 6. Metformin 500 mg p.o. daily. 7. Oxygen 3 L per minute at night. 8. CPAP at night. For wound care, she has a silver alginate dressing for the right mastectomy incision. ALLERGIES: THEOPHYLLINE caused confusion and THIMEROSAL, generalized erythema. FAMILY HISTORY: Father alive, age 85 with dementia. Mother alive, age 84 with history of colon cancer. No known anesthesia complications, bleeding tendencies , or clotting disorders. SOCIAL HISTORY: She lives alone, but she will be staying with her mother postoperatively. She has a son who lives nearby. She is currently unemployed. She currently smokes approximately 10 or fewer cigarettes per day, down from 1 pack per day for the past 20 to 30 years. She drinks 2 beers on average daily and denies the use of other substances. REVIEW OF SYSTEMS: She had an episode of mild exacerbation of her COPD on 12/31 and was in the [facility]. At that time, she had mild wheezing and a visiting nurse noted that her pulse was 130; in the emergency department, her CBC was within normal limits, EKG was sinus rhythm and chest x-ray did not reveal any active cardiopulmonary disease; she was treated with 4 days of oral Levaquin and oral prednisone and was discharged home from the emergency department and has had good resolution of the wheezing and currently denies any acute distress. She denies any fever or chills or excessive fatigue. Endocrine: She is a type 2 diabetic. She does not check fingersticks at home. No known thyroid disease. Hematologic: No easy bruising or bleeding. No history of blood transfusions. Breasts: As described in history of present illness. Respiratory: COPD with recent mild exacerbation as previously noted; sleep apnea and uses CPAP and oxygen at night ; mild shortness of breath with exertion. No chronic cough. No hemoptysis. Cardiovascular: No anginal chest pain or palpitations. Gastrointestinal: No nausea, vomiting, diarrhea, GI bleeding, or constipation. Genitourinary: No problems reported. 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 Musculoskeletal: No problems reported. Integumentary: No chronic rashes or skin changes. Neurologic: No headache or blurred vision. No areas of focal weakness. General: No history of anesthesia complications. No history of deep vein thrombosis or pulmonary embolism. Psychiatric: History of depression. PHYSICAL EXAMINATION GENERAL SURVEY: The patient is a 57-year-old female, obese, well developed, in no acute distress. VITAL SIGNS: Height 66 inches, weight 210 pounds, body mass index 33.9. Blood pressure 124/80, pulse 72 and regular, respiratory rate 18, temperature 97.1 tympanic. HEENT: Benign. NECK: Supple. No cervical or supraclavicular lymphadenopathy. No thyromegaly or masses. LUNGS: Breath sounds clear on the left. Some rhonchi on the right. She does have a PowerPort palpable, left upper chest. HEART: Regular rate and rhythm. No murmurs appreciated. BREASTS: Surgically absent right mastectomy incision with 2 small areas that are chronically open, but they are granulating and clean. No surrounding erythema. Both areas redressed with silver alginate dressings. ABDOMEN: Obese. Active bowel sounds. Soft, nondistended, nontender throughout. No obvious masses or organomegaly. BACK: No CVA tenderness. PELVIC: Exam deferred. RECTAL: Exam deferred. EXTREMITIES: Warm. Trace edema bilaterally in the lower extremities. No skin ulcerations. NEUROLOGIC: Alert and oriented x3. Steady gait. SKIN: Warm, dry, intact. IMPRESSION: Right breast cancer with 1 sentinel node positive for metastasis. PLAN: Same-day surgery admission to Dr. Stevenson's service on 01/18/18, for completion right axillary dissection. MERYL REN NP [id number]/[facility] [place]: [id number] [place]
[~2018-01-18 06:44] MED LIST changes: +Famotidine IV* 10 MG/ML 2 ML (20 mg) IV ONE
[2018-01-18] MEDS ORDERED: Heparin VIAL(*) 5000 UNITS/ML VIAL (FIVE THOUSAND) ONE ×2 (07:08)
[2018-01-18] MEDS ORDERED: Famotidine IV* 10 MG/ML 2 ML (20 mg) ONE ×2 (07:08)
[2018-01-18] MEDS ORDERED: ceFAZolin 2 GM in NS PREMIX(*) 2 GM/100 ML BAG IVPB ONE ×2 (07:08)
[2018-01-18] MEDS ORDERED: fentaNYL* 50 MCG/ML 2 ML VIAL (100 MCG VIAL) IV PRN (07:18)
[2018-01-18] MEDS ORDERED: oxyCODONE/Acetamin 5/325 MG* TAB PO PRN (07:18)
[2018-01-18] MEDS ORDERED: PROCHLORPERAZINE INJ 5 MG/ML 2 ML VIAL IV PRN (07:18)
[2018-01-18] MEDS ORDERED: HYDROcodone/ACETAMIN 5-325 MG* 1 TAB PO PRN (07:18)
[2018-01-18] MEDS ORDERED: Naloxone* 0.4 MG/ML 1 ML VIAL IV PRN (07:18)
[2018-01-18] MEDS ORDERED: Bupivacaine 0.5% SDV PF* 30ML VIAL ONE ×2 (07:50)
[2018-01-18] MEDS ORDERED: Lidocaine 1% INJ* 10 MG/ML 30 ML SDV ONE ×2 (07:50)
[2018-01-18] MEDS ORDERED: Morphine VIAL* 10 MG/ML 1 ML VIAL ONE ×4 (08:06→09:45)
[2018-01-18] MEDS ORDERED: Midazolam* 1 MG/ML 5 ML VIAL (5 MG) ONE ×2 (08:35)
[2018-01-18] MEDS ORDERED: fentaNYL* 50 MCG/ML 2 ML VIAL (100 MCG VIAL) ONE ×2 (08:35)
[2018-01-18] MEDS ORDERED: Propofol* 10 MG/ML 20 ML BTL IV PUSH ONE ×2 (08:41)
[2018-01-18] MEDS ORDERED: Lidocaine 2% PF * 5 ML VIAL ONE ×2 (08:42)
[2018-01-18] MEDS ORDERED: Phenylephrine IV* 40 MCG/ML 10 ML SYRINGE ONE ×2 (08:51)
[2018-01-18] MEDS ORDERED: Lidocain 1% EPI 1:100,000 * 30 ML MDV ONE ×2 (09:15)
[2018-01-18] MEDS ORDERED: Ondansetron INJ* 2 MG/ML VIAL ONE ×2 (10:01)
[2018-01-18] MEDS ORDERED: Levalbuterol 0.63MG/3ML NEB* UNIT OF USE INH ONE (10:43)
[2018-01-18 11:41] VITALS: BP 139/89
--- NOTE | 2018-01-19 03:43 | OP ---
CC: Dr. Jona Borrero; [facility]. * DATE OF OPERATION: 01/18/[address] - [facility] DATE OF : 60 SURGEON: Namrata Stevenson MD CVIR TECH: Josh PRE-OP DIAGNOSIS: Right breast cancer. POST-OP DIAGNOSIS: Right breast cancer. OPERATIVE PROCEDURE: Completion axillary dissection. INDICATIONS: Ms. Harris is a 57-year-old woman with a diagnosis of breast cancer who at the time of her mastectomy and sentinel node biopsy was found to have large cancer and positive sentinel node. Once the wound was close to healed, after a complicated postoperative course, decision was made to complete the axillary dissection in the right axilla. DESCRIPTION OF PROCEDURE: She was therefore brought to the operating room, placed on the OR table in a supine position and given general anesthesia. The axilla and the chest wall were prepped and draped in usual sterile fashion. Then, Tegaderms were placed over the open wounds of the mastectomy site and attention was turned to the right axilla. A curvilinear incision was made in the inferior axilla and subcutaneous tissue was divided with electrocautery done to the level of the axillary fat pad, this was identified due to scar tissue in the area, and in fact scar tissue and her body habitus made this operation very difficult. The edge of the pectoralis muscle was identified and the fatty tissue posterior to this was swept more posteriorly and then laterally and dissection was done as a fatty tissue was grasped to divide it from the subcutaneous tissue and other fatty tissue in the area. At one point, in the process of doing this there was a button hole made in the skin superior to the incision. This was repaired at the end of the surgery. Further dissection was done to try and expose the axillary vein; however, her body habitus again made this very difficult and finally the decision was made to discontinue further dissection in order to avoid risking injury to nerves or vein. The fatty tissue that was in fact excised was handed off. This came out in several different pieces. All labelled as axillary contents. Small lymphatic and blood vessels that were encountered were controlled with clips and with cautery and then a MARY JO drain was placed through a small stab wound in the anterior, inferior, axillary line and then the closure was accomplished. First the small button hole was closed with 3-0 Vicryl interrupted subcuticular stitches from the underside and then 3-0 Vicryl was used to close the subcutaneous tissue of the main incision and 4-0 Prolene was used to close the skin in a subcuticular fashion. Steri-Strips and dry sterile dressings were applied. The mastectomy wound was redressed with Aquacel and covered with gauze and Mepilex tape. All sponge and instrument counts were correct. The patient tolerated the procedure well and was transferred to recovery in stable condition. [id number]/[facility] #: [id number] RILEY
== END 2018-01-18 12:17 | disposition home or self-care (01) ==
LOC: OR 06:44
PROVIDERS: ATTEND Surgery
DX: C50.911 Malignant neoplasm of unspecified site of right female breast (principal); C77.3 Secondary and unspecified malignant neoplasm of axilla and upper limb lymph nodes; Z72.0 Tobacco use; J44.9 Chronic obstructive pulmonary disease, unspecified; G47.33 Obstructive sleep apnea (adult) (pediatric); E11.9 Type 2 diabetes mellitus without complications; Z79.84 Long term (current) use of oral hypoglycemic drugs; Z99.81 Dependence on supplemental oxygen
CPT/HCPCS: 88307; J0690; J1644; J2250; J2270; J2405; J2704; J3010

== ENCOUNTER 2018-03-23 23:15 | Emergency (ER) | payer MEDICAID ==
[2018-03-23] MEDS ORDERED: Sodium Bicarbonate 8.4%* 50 ML SYRINGE ONE (23:17)
[2018-03-23] MEDS ORDERED: DOPamine 800 MG/250 ML IVPREM* 3200 MCG/ML *** NOTE STRENGTH CENTR ONE (23:17)
[2018-03-23] MEDS ORDERED: Atropine SYRINGE* 0.1 MG/ML 10 ML SYRINGE (1 MG) ONE (23:17)
[2018-03-23] MEDS ORDERED: EPINEPHrine SYR 0.1MG/ML* SYRINGE ONE (23:17)
[2018-03-23] MEDS ORDERED: NS 0.9% 1000 ML* 1,000 ML IV ONE (23:29)
[2018-03-23] MEDS ORDERED: Piperacillin/Tazobac ADVAN(*) 3.375 GM in NS 0.9% 100 ML* 100 ML IVPB ONE (23:56)
[2018-03-23] MEDS ORDERED: Vancomycin(*) 1,000 MG in NS 0.9% 250 ML* 250 ML IVPB ONE (23:56)
--- NOTE | 2018-03-23 23:56 | ED ---
Cardiac Resuscitation - HPI Summary HPI Summary: ABC Alert called at 2313. LEVEL 5 CAVEAT DUE TO CARDIAC ARREST. This patient is a 57 year old F brought in by ambulance to ED, accompanied by sister and son, with a chief complaint of cardiac arrest since PR INTERN. Per the family, the patient was seen to be groggy for about 20 minutes. They tried to give the patient morphine as her pain medication for the recent double mastectomy (the patient also had 2 rounds of radiation this week for breast CA) . Then the patient fell to the ground in cardiac arrest. Per EMS, the patient was intubated en route and they got a pulse out of her. She was given epi x4 and ROSC. Per EMS, there was a bit of fresh blood in the throat seen when they intubated. Then she went into cardiac arrest again and arrived to the ED at 2315. By then, she had been in arrest for about 35 minutes before they got a pulse back after arrival at 2317. In the ED she was given bicarb x3 at 2317. At 2327, the patient was intubated again by Dr. Kam. Per the sister, the patient was dx in October 2017 for breast CA which metastasized to her liver, lung, and back. There was also necrotic tissue from the beginning. In January 2018, the patient was dx with lymphedema. At 0001, the patient went into cardiac arrest again and ABC alert was called. The patient was given atropine 1mg at 0000 and epi x1 at 0001. At 0003 and 0005 , bicarb x2 was given. At 0015, Dr. Kam tried putting a line through the femoral artery. Time of was 31. - History of Current Complaint Chief Complaint: EDCardiacArrest Stated Complaint: ABC ALERT Time Seen by Provider: 03/23/18 23:29 Hx Obtained From: Patient Hx From Patient Unobtainable Due To: Other - patient went into cardiac arrest and is not responsive at this time. Arrest Witnessed: Yes - Past Medical History Past Medical History: Unobtainable Due to Extremis, Other: - breast CA - Family History Family History: Unobtainable Due to Extremis - Social History Social History: Unobtainable Due to Extremis - Review of Systems Review of Systems: Unobtainable Due to Extremis Physical Examination - Summary Physical Exam Summary: Patient is intubated with 5.5 ET tube. Not responding to painful stimuli. EYES: Pupils are 2-3 mm and non-reactive. She does have corneal reflex. L mastectomy, R mastectomy with large area of broken skin with necrotic, foul- smelling discharge EXTREMITIES: RUE is severely swollen, consistent with lymphedema. Bilateral LE edema. LUNG: Patient is on ventilator, has decreased breath sounds over the R side. ABDOMEN: Belly distended - Physical Examination Triage Information Reviewed: Yes Completion Of Physical Exam Limited Due To: Other - LEVEL 5 CAVEAT DUE TO CARDIAC ARREST Procedures - Central Line Right Femoral Central Line Position: femoral (R) Complications: none - used US - Intubation Time of Intubation: 23:27 - Switched intertracheal ET tube using bougi Tube Size (cm): 7.5 Intubation Complications: no complications Diagnostics - Laboratory Lab Statement: Any lab studies that have been ordered have been reviewed, and results considered in the medical decision making process. - Radiology CXR Radiology Interpretation Completed By: ED Physician Summary of Radiographic Findings: CXR reveals R side pleural effusion and multiple focal densities bilaterally. Pending radiologist official report. Cardiac Resus. Course/Dx - Course Assessment/Plan: ABC Alert called at 2313. LEVEL 5 CAVEAT DUE TO CARDIAC ARREST. This patient is a 57 year old F brought in by ambulance to ED with a chief complaint of cardiac arrest since PR INTERN. CXR reveals R side pleural effusion and multiple focal densities bilaterally. Switched intertracheal ET tube from 5.5 to 7.5 using bougi with no complications. Central line procedure done at R femoral using US with no complications. The patient coded twice. After the 1st one, she was hemodynamically stable, lasting about 10 minutes. Then she coded again, and was not able to regain pulse. For code details, please refer to the CODE sheet. The patient was pronounced at 0032. Family was present. Spoke to medical artist (Charlette Cullen) at 0104. Subhash reviewed the case and will speak to Dr. Stacy to sign the certificate. - Diagnoses Provider Diagnoses: Cardiac arrest, Metastatic breast cancer - Provider Notifications Discussed Care Of Patient With: Cheri Cullen Time Discussed With Above Provider: 01:04 Instructed by Provider To: Other - Discussed with the medical artist who reviewed the patient's case. She will talk to Dr. Stacy to have him sign the certificate. - Critical Care Time Critical Care Time: 30-74 min - 70 minutes of CCT Discharge - Sign-Out/Discharge Documenting (check all that apply): Patient Departure - - Discharge Plan Condition: Referrals: Jona Borrero MD [Primary Care Provider] - - Attestation Statements Document Initiated by Scribe: Yes Documenting Scribe: Severo Cartwright Provider For Whom Scribe is Documenting (Include Credential): Gerald Kam MD Scribe Attestation: ISevero, scribed for Gerald Kam MD on 03/24/18 at 0313. Status of Scribe Document: Ready
[2018-03-24 01:09] VITALS: BP 75/40
== END 2018-03-24 00:32 | disposition expired ==
LOC: EDBD → MERGE 23:15 → ED 23:15
DX: I46.9 Cardiac arrest, cause unspecified (principal); C50.919 Malignant neoplasm of unspecified site of unspecified female breast; C78.7 Secondary malignant neoplasm of liver and intrahepatic bile duct; C78.00 Secondary malignant neoplasm of unspecified lung
CPT/HCPCS: 31500; 36555; 36569; 71045; 99285; J0171; J0461; J1265